=== PATIENT | male | born 1990 | race Caucasian/White ===

== ENCOUNTER 2017-03-24 21:32 | Emergency (ER) | payer BC, OTHER ==
[2017-03-24 21:33] VITALS: BMI 22.4
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
[2017-03-24 22:20] LABS: ADD MANUAL DIFF? NO
[2017-03-24 22:35] LABS: BASO # 0.05 K/mm3 (0.0-2.0); BASO % 0.7 % (0.0-3.0); EOS # 0.5 (0.0-0.7); GRAN # 2.24 (1.4-6.5); GRAN % 31.5 % (50.0-68.0); HEMATOCRIT 46.8 % (42.0-52.0); LYMPH % 56.2 % (22.0-35.0); MEAN CORPUSCULAR HEMOGLOBIN 28.7 pg (25.0-35.0); MEAN CORPUSCULAR HGB CONC 34.2 g/dl (31.0-37.0); MEAN PLATELET VOLUME 9.9 fl (7.0-11.0); MONO # 0.3 (0.1-0.6); MONO % 4.6 % (1.0-6.0); PLATELET COUNT 223 10^3/uL (120.0-450.0); WHITE BLOOD COUNT 7.1 10^3/ul (4.5-11.0)
[2017-03-24 22:37] LABS: PH,URINE 6.5 (4.7-8.0); URINE BILIRUBIN NEGATIVE (NEGATIVE); URINE BLOOD NEGATIVE (NEGATIVE); URINE GLUCOSE (UA) NEGATIVE (NEGATIVE); URINE KETONE NEGATIVE (NEGATIVE); URINE LEUKOCYTE ESTERASE NEGATIVE Leu/uL (NEGATIVE); URINE PROTEIN NEGATIVE mg/dL (<30 mg/dL); URINE UROBILINOGEN 0.2 E.U./dL (<1 E.U./dL)
[2017-03-24 22:38] LABS: ALB/GLOB RATIO 1.3 (1.1-1.8); ALKALINE PHOSPHATASE 50 U/L (38-133); ALT/SGPT 20 U/L (7-56); AST/SGOT 26 U/L (15-59); BILIRUBIN,TOTAL 0.6 mg/dL (0.2-1.3); BLOOD UREA NITROGEN 12 mg/dL (7-21); CALCIUM 9.6 mg/dL (8.4-10.5); CARBON DIOXIDE 25 mmol/L (21-33); CHLORIDE 101 mmol/L (98-107); GFR AFRICAN-AMERICAN > 60; GLUCOSE,RANDOM 118 mg/dL (70-110); SODIUM 142 mmol/L (132-148); TOTAL PROTEIN 8.6 g/dL (5.8-8.3)
[2017-03-24 22:43] LABS: POTASSIUM 4.2 mmol/L (3.6-5.0)
[2017-03-24 22:43] LABS: URINE APPEARANCE CLEAR (CLEAR); URINE COLOR LIGHT YELLOW (YELLOW)
--- NOTE | 2017-03-25 07:01 | ED PDOC ---
Physical Exam Vital Signs Temp Pulse Resp BP Pulse Ox 03/25/17 12:30 81 18 129/76 98 03/25/17 09:00 98 F 86 18 124/76 99 03/25/17 05:55 89 17 112/76 100 03/25/17 05:05 84 16 117/80 03/25/17 03:15 84 17 115/63 100 03/25/17 01:19 83 16 134/85 99 03/24/17 23:56 99 H 20 125/87 100 03/24/17 21:51 98.1 F 95 H 16 152/70 H 100 Medical Decision Making ED Course and Treatment: 03/25/17 07:00 Case signed out to me by Dr. Lemus pending [facility] screen[place] 03/25/17 18:07 [facility] not accepting [place] for screening. Dr. Davis ordered a REscreen. Pending [facility] screener. Will sign case out to oncoming night team. - Lab Interpretations Lab Results: 03/24/17 21:52 03/24/17 21:52 Lab Results 03/25/17 03:20: Urine Opiates Screen Negative, Urine Methadone Screen Negative, Ur Barbiturates Screen Negative, Ur Phencyclidine Scrn Negative, Ur Amphetamines Screen Negative, U Benzodiazepines Scrn Negative, U Oth Cocaine Metabols Negative, U Cannabinoids Screen Negative 03/24/17 22:25: Urine Color Light yellow, Urine Appearance Clear, Urine pH 6.5, Ur Specific [place] <= 1.005, Urine Protein Negative, Urine Glucose (UA) Negative, Urine Ketones Negative, Urine Blood Negative, Urine Nitrate Negative, Urine Bilirubin Negative, Urine Urobilinogen 0.2, Ur Leukocyte Esterase Negative 03/24/17 21:52: Alcohol, Quantitative 127 H 03/24/17 21:52: Salicylates < 1 L, Acetaminophen < 10.0 L 03/24/17 21:52: Sodium 142, Potassium 4.2, Chloride 101, Carbon Dioxide 25, Anion Gap 20, BUN 12, Creatinine 0.9, Est GFR ( Amer) > 60, Est GFR (Non- Af Amer) > 60, Random Glucose 118 H, Calcium 9.6, Total Bilirubin 0.6, AST 26, ALT 20, Alkaline Phosphatase 50, Total Protein 8.6 H, Albumin 4.9 H, Globulin 3.8, Albumin/Globulin Ratio 1.3 03/24/17 21:52: WBC 7.1 D, RBC 5.57, Hgb 16.0, Hct 46.8, MCV 84.0, MCH 28.7, MCHC 34.2, RDW 13.0, Plt Count 223, MPV 9.9, Gran % 31.5 L, Lymph % (Auto) 56.2 H, [place] % (Auto) 4.6, Eos % (Auto) 7.0 H, Baso % (Auto) 0.7, Gran # 2.24, Lymph # 4.0 H, [place] # 0.3, Eos # 0.5, Baso # 0.05 - RAD Interpretation Radiology Orders: 03/24/17 21:55 CHEST PORTABLE [RAD] Stat Disposition/Present on Arrival - Present on Arrival Any Indicators Present on Arrival: No History of DVT/PE: No History of Uncontrolled Diabetes: No Urinary Catheter: No History of Decub. Ulcer: No History Surgical Site Infection Following: None - Disposition Have Diagnosis and Disposition been Completed?: No Diagnosis: Schizoaffective disorder Disposition Time: 18:08 Patient Problems: Current Active Problems Problem Status Onset Schizoaffective disorder Acute Condition: GOOD
--- NOTE | 2017-03-25 08:42 | RAD ---
PROCEDURE: CHEST RADIOGRAPH, 1 VIEW HISTORY: medical clearance COMPARISON: 01/03/2017. FINDINGS: LUNGS: Clear. PLEURA: No pneumothorax or pleural fluid seen. CARDIOVASCULAR: Normal. OSSEOUS STRUCTURES: No significant abnormalities. VISUALIZED UPPER ABDOMEN: Normal. OTHER FINDINGS: None. IMPRESSION: Clear lungs.
--- NOTE | 2017-03-25 10:41 | CARD ---
APPROVED REPORT EKG Measurement Heart [id number] <Conclusion> Normal sinus rhythm LVH by voltage, probably normal for age. No change
--- NOTE | 2017-03-25 20:22 | ED PDOC ---
Physical Exam Vital Signs Temp Pulse Resp BP Pulse Ox 03/25/17 20:22 98.2 F 79 16 146/92 H 98 03/25/17 16:00 98.7 F 84 18 136/81 97 03/25/17 12:30 81 18 129/76 98 03/25/17 09:00 98 F 86 18 124/76 99 03/25/17 05:55 89 17 112/76 100 03/25/17 05:05 84 16 117/80 03/25/17 03:15 84 17 115/63 100 03/25/17 01:19 83 16 134/85 99 03/24/17 23:56 99 H 20 125/87 100 03/24/17 21:51 98.1 F 95 H 16 152/70 H 100 Medical Decision Making ED Course and Treatment: 03/25/17 19:00 Case endorsed to me by Dr. Calvo, [place] [facility],[facility] re-evaluation and final disposition. 03/25/17 23:09 As per [facility], pt does not need to be screened. PES screener Marvin re- evaluated pt, pt to be released to police custody. - Lab Interpretations Lab Results: 03/24/17 21:52 03/24/17 21:52 Lab Results 03/25/17 03:20: Urine Opiates Screen Negative, Urine Methadone Screen Negative, Ur Barbiturates Screen Negative, Ur Phencyclidine Scrn Negative, Ur Amphetamines Screen Negative, U Benzodiazepines Scrn Negative, U Oth Cocaine Metabols Negative, U Cannabinoids Screen Negative 03/24/17 22:25: Urine Color Light yellow, Urine Appearance Clear, Urine pH 6.5, Ur Specific [place] <= 1.005, Urine Protein Negative, Urine Glucose (UA) Negative, Urine Ketones Negative, Urine Blood Negative, Urine Nitrate Negative, Urine Bilirubin Negative, Urine Urobilinogen 0.2, Ur Leukocyte Esterase Negative 03/24/17 21:52: Alcohol, Quantitative 127 H 03/24/17 21:52: Salicylates < 1 L, Acetaminophen < 10.0 L 03/24/17 21:52: Sodium 142, Potassium 4.2, Chloride 101, Carbon Dioxide 25, Anion Gap 20, BUN 12, Creatinine 0.9, Est GFR ( Amer) > 60, Est GFR (Non- Af Amer) > 60, Random Glucose 118 H, Calcium 9.6, Total Bilirubin 0.6, AST 26, ALT 20, Alkaline Phosphatase 50, Total Protein 8.6 H, Albumin 4.9 H, Globulin 3.8, Albumin/Globulin Ratio 1.3 03/24/17 21:52: WBC 7.1 D, RBC 5.57, Hgb 16.0, Hct 46.8, MCV 84.0, MCH 28.7, MCHC 34.2, RDW 13.0, Plt Count 223, MPV 9.9, Gran % 31.5 L, Lymph % (Auto) 56.2 H, [place] % (Auto) 4.6, Eos % (Auto) 7.0 H, Baso % (Auto) 0.7, Gran # 2.24, Lymph # 4.0 H, [place] # 0.3, Eos # 0.5, Baso # 0.05 - RAD Interpretation Radiology Orders: 03/24/17 21:55 CHEST PORTABLE [RAD] Stat - Medication Orders Current Medication Orders: Discontinued Medications Quetiapine Fumarate (Seroquel) 25 mg PO STAT STA PRN Reason: Protocol Stop: 03/25/17 20:22 Last Admin: 03/25/17 20:45 Dose: 25 mg Disposition/Present on Arrival - Present on Arrival Any Indicators Present on Arrival: No History of DVT/PE: No History of Uncontrolled Diabetes: No Urinary Catheter: No History of Decub. Ulcer: No History Surgical Site Infection Following: None - Disposition Have Diagnosis and Disposition been Completed?: Yes Diagnosis: Schizoaffective disorder Disposition: RELEASED IN POLICE CUSTODY Disposition Time: 23:10 Condition: GOOD Additional Instructions: medically stable for incarceration
[2017-03-25 20:23] VITALS: RESP 16; O2SAT 98
[2017-03-25 23:11] VITALS: BP 135/78; PULSE 80; TEMP 98
== END 2017-03-25 23:14 ==
LOC: ED 21:32
DX: F25.9 Schizoaffective disorder, unspecified (principal)
CPT/HCPCS: 71010; 80053; 81003; 85025; 93005; 99285; G0480

== ENCOUNTER 2017-07-12 12:41 | Emergency (ER) | payer OTHER, MEDICAID ==
[2017-07-12 12:42] VITALS: BMI 22.4
--- NOTE | 2017-07-12 13:03 | ED PDOC ---
Arrival/HPI - General Chief Complaint: Psychiatric Evaluation Time Seen by Provider: 07/12/17 12:42 Historian: Patient - History of Present Illness Narrative History of Present Illness (Text): 07/12/17 12:45 Wily Gunter is a 27 year old male, whose past medical history includes schizophrenia, who presents to the emergency department complaining of hallucinations and violent behavior today. Patient was reportedly sent by mobile crisis. Patient notes that he was recently hospitalized several months ago for similar symptoms. Limited history provided. Time/Duration: 4-6 hours Symptom Onset: Gradual Symptom Course: Unchanged Activities at Onset: Light Past Medical History - Provider Review Nursing Documentation Reviewed: Yes - Infectious Disease Hx of Infectious Diseases: None - Tetanus Immunization Tetanus Immunization: Unknown - Past Medical History Past Medical History: No Previous - Cardiac Hx Cardiac Disorders: No Hx Hypertension: No - Pulmonary Hx Respiratory Disorders: No Hx Tuberculosis: No - Neurological HX Cerebrovascular Accident: No Hx Seizures: Yes - HEENT Hx HEENT Disorder: No - Renal Hx Renal Disorder: No - Endocrine/Metabolic Hx Endocrine Disorders: No - Hematological/Oncological Hx Cancer: No - Integumentary Hx Dermatological Disorder: No - Musculoskeletal/Rheumatological Hx Musculoskeletal Disorders: No Hx Falls: No - Gastrointestinal Hx Gastrointestinal Disorders: No - Genitourinary/Gynecological Hx Genitourinary Disorders: No Hx Sexually Transmitted Diseases: No - Psychiatric Hx Bipolar Disorder: Yes Hx Depression: Yes Hx Schizophrenia: Yes Hx Substance Use: No - Past Surgical History Past Surgical History: No Previous - Surgical History Other/Comment: nose - Anesthesia Hx Anesthesia: Yes - Suicidal Assessment Feels Threatened In Home Enviroment: No Family/Social History - Physician Review Nursing Documentation Reviewed: Yes Family/Social History: No Known Family HX Smoking Status: Heavy Smoker > 10 Cigarettes Daily Hx Alcohol Use: Yes Hx Substance Use: No Hx Substance Use Treatment: No Allergies/Home Meds Allergies/Adverse Reactions: Allergies No Known Allergies Allergy (Verified 07/12/17 12:54) Home Medications: Home Meds Medication Instructions Recorded Confirmed Benztropine [Cogentin] 1 mg PO BID 07/12/17 07/12/17 Divalproex [Depakote ER] 1,000 mg PO HS 07/12/17 07/12/17 QUEtiapine [SEROquel] 200 mg PO DAILY 07/12/17 07/12/17 QUEtiapine [SEROquel] 600 mg PO HS 07/12/17 07/12/17 traZODone [Desyrel] 50 mg PO HS 07/12/17 07/12/17 Review of Systems - Physician Review All systems were reviewed & negative as marked: Yes - Review of Systems Constitutional: absent: Fevers, Night Sweats Eyes: absent: Vision Changes, Photophobia ENT: absent: Hearing Changes, Tinnitus Respiratory: absent: SOB, Cough Cardiovascular: absent: Chest Pain, Palpitations Gastrointestinal: absent: Abdominal Pain, Stool Changes Genitourinary Male: absent: Dysuria, Frequency Musculoskeletal: absent: Arthralgias, Back Pain Skin: absent: Rash, Pruritis Neurological: absent: Headache, Dizziness Endocrine: absent: Diaphoresis Hemo/Lymphatic: absent: Adenopathy Psychiatric: Other (hallucinations and violent behavior) Physical Exam Vital Signs Reviewed: Yes Vital Signs Temp Pulse Resp BP Pulse Ox 07/13/17 04:39 97.7 F 71 16 113/75 100 07/13/17 03:00 98.2 F 80 16 124/78 99 07/12/17 23:00 98.4 F 86 16 126/74 99 07/12/17 19:00 78 18 115/80 100 07/12/17 17:27 76 18 119/90 100 07/12/17 16:00 85 18 126/84 98 07/12/17 14:28 78 18 105/70 98 07/12/17 12:47 98.3 F 113 H 20 132/86 96 Temperature: Afebrile Blood Pressure: Normal Pulse: Tachycardic Respiratory Rate: Normal Appearance: Positive for: Other (bizarre behavior; agitated at times; unable to provide further history) Pain Distress: None Mental Status: Positive for: Alert and Oriented X 3 - Systems Exam Head: Present: Atraumatic, Normocephalic Pupils: Present: PERRL Extroacular Muscles: Present: EOMI Conjunctiva: Present: Normal Mouth: Present: Moist Mucous Membranes Neck: Present: Normal Range of Motion Respiratory/Chest: Present: Clear to Auscultation, Good Air Exchange. No: Respiratory Distress, Accessory Muscle Use Cardiovascular: Present: Regular Rate and Rhythm, Normal S1, S2. No: Murmurs Abdomen: Present: Normal Bowel Sounds. No: Tenderness, Distention, Peritoneal Signs Back: Present: Normal Inspection Upper Extremity: Present: Normal Inspection. No: Cyanosis, Edema Lower Extremity: Present: Normal Inspection. No: Edema Neurological: Present: GCS=15, CN II-XII Intact, Speech Normal Skin: Present: Warm, Dry, Normal Color. No: Rashes Psychiatric: Present: Hallucinations, Other (Bizarre behavior) Medical Decision Making ED Course and Treatment: 07/12/17 13:05 Impression: 27 year old male complaining of hallucinations and violent behavior today Differential Diagnosis included but are not limited to: Plan: -- EKG -- Chest X-ray -- Urinalysis -- Labs -- Reassess and disposition Prior Visits: Notes and results from previous visits were reviewed. Patient last seen in the ED on 03/24/17 brought in by Simi JOSEPH for psychiatric evaluation. Patient was discharged on police custody. Progress Notes: EKG: Ordered, reviewed, and independently interpreted the EKG. Rate : 98 BPM Rhythm : NSR Interpretation : No ST-segment elevations or depressions, no T-wave inversions, normal intervals. Comparison : No previous EKG for comparison. 07/12/17 14:17 Spoke with PES worker, who recommends Patient be evaluated by [facility] screener. 07/12/17 15:59 pt medically cleared 07/13/17 10:19 pt endorsed to retail shift supervisor, [place] [facility] [place] - Lab Interpretations Lab Results: 07/12/17 13:10 07/12/17 13:10 Lab Results 07/12/17 15:20: Urine Opiates Screen Negative, Urine Methadone Screen Negative, Ur Barbiturates Screen Negative, Ur Phencyclidine Scrn Negative, Ur Amphetamines Screen Negative, U Benzodiazepines Scrn Negative, U Oth Cocaine Metabols Negative, U Cannabinoids Screen Negative 07/12/17 15:20: Urine Color Yellow, Urine Appearance Sl cloudy, Urine pH 8.0, Ur Specific [place] 1.020, Urine Protein Trace H, Urine Glucose (UA) Negative, Urine Ketones Trace H, Urine Blood Negative, Urine Nitrate Negative, Urine Bilirubin Negative, Urine Urobilinogen 1.0 H, Ur Leukocyte Esterase Negative, Urine RBC Negative, Urine WBC 0 - 2, Amorphous Sediment Many 07/12/17 13:10: Alcohol, Quantitative < 10 07/12/17 13:10: Sodium 143, Potassium 4.1, Chloride 104, Carbon Dioxide 29, Anion Gap 14, BUN 19, Creatinine 0.9, Est GFR ( Amer) > 60, Est GFR (Non- Af Amer) > 60, Random Glucose 120 H, Calcium 9.4, Total Bilirubin 0.4, AST 34, ALT 22, Alkaline Phosphatase 48, Total Protein 7.2, Albumin 4.4, Globulin 2.7, Albumin/Globulin Ratio 1.6 07/12/17 13:10: WBC 4.0 L D, RBC 5.41, Hgb 15.1, Hct 44.7, MCV 82.6, MCH 27.9, MCHC 33.8, RDW 14.1, Plt Count 171, MPV 9.6, Gran % 37.9 L, Lymph % (Auto) 42.2 H, [place] % (Auto) 10.2 H, Eos % (Auto) 8.7 H, Baso % (Auto) 1.0, Gran # 1.53, Lymph # 1.7, [place] # 0.4, Eos # 0.4, Baso # 0.04 07/12/17 13:10: Salicylates < 1 L, Acetaminophen < 10.0 L, Valproic Acid 65 I have reviewed the lab results: Yes - RAD Interpretation Radiology Orders: 07/12/17 12:57 CHEST PORTABLE [RAD] Stat - Scribe Statement The provider has reviewed the documentation as recorded by the Jose F Burgess Provider Scribe Attestation: All medical record entries made by the Scribe were at my direction and personally dictated by me. I have reviewed the chart and agree that the record accurately reflects my personal performance of the history, physical exam, medical decision making, and the department course for this patient. I have also personally directed, reviewed, and agree with the discharge instructions and disposition. Disposition/Present on Arrival - Present on Arrival Any Indicators Present on Arrival: No History of DVT/PE: No History of Uncontrolled Diabetes: No Urinary Catheter: No History of Decub. Ulcer: No History Surgical Site Infection Following: None - Disposition Have Diagnosis and Disposition been Completed?: Yes Diagnosis: Schizophrenia Disposition: Transfer [facility] Disposition Time: 07:00 Condition: GOOD Referrals: Conductor Dave Refranklin, [Primary Care Provider] - Follow up with primary Forms: [employer] (Indonesian)
[2017-07-12 13:22] LABS: BASO # 0.04 K/mm3 (0.0-2.0); EOS # 0.4 (0.0-0.7); EOS % 8.7 % (1.5-5.0); GRAN # 1.53 (1.4-6.5); GRAN % 37.9 % (50.0-68.0); HEMATOCRIT 44.7 % (42.0-52.0); LYMPH # 1.7 (1.2-3.4); LYMPH % 42.2 % (22.0-35.0); MEAN CELL VOLUME 82.6 fl (80.0-105.0); MEAN CORPUSCULAR HEMOGLOBIN 27.9 pg (25.0-35.0); MEAN CORPUSCULAR HGB CONC 33.8 g/dl (31.0-37.0); MEAN PLATELET VOLUME 9.6 fl (7.0-11.0); MONO # 0.4 (0.1-0.6); MONO % 10.2 % (1.0-6.0); RED CELL DISTRIBUTION WIDTH 14.1 % (11.5-14.5)
[2017-07-12 13:37] LABS: ALB/GLOB RATIO 1.6 (1.1-1.8); ALKALINE PHOSPHATASE 48 U/L (38-133); ALT/SGPT 22 U/L (7-56); AST/SGOT 34 U/L (15-59); BILIRUBIN,TOTAL 0.4 mg/dL (0.2-1.3); BLOOD UREA NITROGEN 19 mg/dL (7-21); CALCIUM 9.4 mg/dL (8.4-10.5); CARBON DIOXIDE 29 mmol/L (21-33); CHLORIDE 104 mmol/L (98-107); GFR AFRICAN-AMERICAN > 60; GLUCOSE,RANDOM 120 mg/dL (70-110); POTASSIUM 4.1 mmol/L (3.6-5.0); SODIUM 143 mmol/L (132-148); TOTAL PROTEIN 7.2 g/dL (5.8-8.3)
[2017-07-12 13:41] LABS: VALPROIC ACID 65 ug/mL (50.0-100.0)
--- NOTE | 2017-07-12 13:42 | RAD ---
HISTORY: pysch COMPARISON: No prior. FINDINGS: LUNGS: No active pulmonary disease. PLEURA: No significant pleural effusion identified, no pneumothorax apparent. CARDIOVASCULAR: Normal. OSSEOUS STRUCTURES: No significant abnormalities. VISUALIZED UPPER ABDOMEN: Normal. OTHER FINDINGS: None. IMPRESSION: No active disease.
--- NOTE | 2017-07-12 15:18 | CARD ---
APPROVED REPORT EKG Measurement Heart [id number] <Conclusion> Normal sinus rhythm Possible Left atrial enlargement Borderline ECG
[2017-07-12 15:53] LABS: URINE BILIRUBIN NEGATIVE (NEGATIVE); URINE BLOOD NEGATIVE (NEGATIVE); URINE GLUCOSE (UA) NEGATIVE (NEGATIVE); URINE KETONE TRACE mg/dL (NEGATIVE); URINE LEUKOCYTE ESTERASE NEGATIVE Leu/uL (NEGATIVE); URINE PROTEIN TRACE mg/dL (<30 mg/dL)
[2017-07-12 15:55] LABS: URINE APPEARANCE SL CLOUDY (CLEAR); URINE COLOR YELLOW (YELLOW)
[2017-07-12 16:06] LABS: URINE WBC 0 - 2 /hpf (0-6)
[2017-07-12 16:07] LABS: URINE AMORPHOUS SEDIMENT MANY; URINE RBC NEGATIVE /hpf (0-2)
[2017-07-13 04:20] VITALS: RESP 16
[2017-07-13 04:40] VITALS: BP 113/75; PULSE 71; TEMP 97.7; O2SAT 100
== END 2017-07-13 05:03 | disposition short-term general hospital (02) ==
LOC: ED 12:41
DX: F20.9 Schizophrenia, unspecified (principal)

== ENCOUNTER 2018-04-12 18:03 | Inpatient (IN) | payer BC, OTHER ==
--- NOTE | 2018-04-12 18:21 | ED PDOC ---
Arrival/HPI - General Chief Complaint: Psychiatric Evaluation Time Seen by Provider: 04/12/18 18:09 Historian: Patient, EMS - History of Present Illness Time/Duration: Prior to Arrival Symptom Onset: Gradual Symptom Course: Unchanged Associated Symptoms (Text): 04/12/18 18:18 Patient was found on the floor at home by family and 911 was called and he was brought to the emergency department via ambulance. Patient had a prescription for Ambien 10 mg #30 and Ativan 2 mg #30 both filled on 04/09/2018. He has been taking the pills since then and has completely finish them. He states that he was trying to and thought that that would be enough to kill him. He is mildly lethargic but oriented 3 and in no distress. He was placed on one-to- one suicide watch. Past Medical History - Infectious Disease Hx of Infectious Diseases: None - Tetanus Immunization Tetanus Immunization: Unknown - Past Medical History Past Medical History: No Previous - Cardiac Hx Cardiac Disorders: No Hx Hypertension: No - Pulmonary Hx Respiratory Disorders: No Hx Tuberculosis: No - Neurological HX Cerebrovascular Accident: No Hx Seizures: Yes - HEENT Hx HEENT Disorder: No - Renal Hx Renal Disorder: No - Endocrine/Metabolic Hx Endocrine Disorders: No - Hematological/Oncological Hx Cancer: No - Integumentary Hx Dermatological Disorder: No - Musculoskeletal/Rheumatological Hx Musculoskeletal Disorders: No Hx Falls: No - Gastrointestinal Hx Gastrointestinal Disorders: No - Genitourinary/Gynecological Hx Genitourinary Disorders: No Hx Sexually Transmitted Diseases: No - Psychiatric Hx Bipolar Disorder: Yes Hx Depression: Yes Hx Schizophrenia: Yes Hx Substance Use: No - Past Surgical History Past Surgical History: No Previous - Surgical History Other/Comment: nose - Anesthesia Hx Anesthesia: Yes - Suicidal Assessment Feels Threatened In Home Enviroment: No Family/Social History - Physician Review Nursing Documentation Reviewed: Yes Family/Social History: Unknown Family HX Smoking Status: Heavy Smoker > 10 Cigarettes Daily Hx Alcohol Use: Yes Frequency of alcohol use: Socially Hx Substance Use: No Hx Substance Use Treatment: No Allergies/Home Meds Allergies/Adverse Reactions: Allergies No Known Allergies Allergy (Verified 07/12/17 12:54) Home Medications: Home Meds Medication Instructions Recorded Confirmed Divalproex [Depakote ER] 500 mg PO HS 07/12/17 04/12/18 QUEtiapine [SEROquel] 400 mg PO HS 07/12/17 04/12/18 traZODone [Desyrel] 300 mg PO HS 07/12/17 04/12/18 Doxylamine Succinate [Unisom] 10 mg PO HS 04/12/18 04/12/18 LORazepam [Ativan] 2 mg PO DAILY 04/12/18 04/12/18 Melatonin [[place] 3 mg-1 mg] 10 mg PO HS 04/12/18 04/12/18 Zolpidem [Ambien] 10 mg PO HS 04/12/18 04/12/18 Review of Systems - Physician Review All systems were reviewed & negative as marked: Yes - Review of Systems Constitutional: absent: Fatigue, Fevers Respiratory: absent: SOB, Cough Cardiovascular: absent: Chest Pain, Palpitations, Syncope Gastrointestinal: absent: Abdominal Pain, Nausea, Vomiting Neurological: absent: Headache, Dizziness, Focal Weakness Physical Exam Vital Signs Temp Pulse Resp BP Pulse Ox 04/12/18 20:08 64 16 119/68 100 04/12/18 18:04 97.9 F 87 18 110/73 98 Temperature: Afebrile Blood Pressure: Normal Pulse: Regular Respiratory Rate: Normal Appearance: Positive for: Well-Appearing, Non-Toxic, Comfortable Pain Distress: None Mental Status: Positive for: Alert and Oriented X 3 - Systems Exam Head: Present: Atraumatic, Normocephalic Pupils: Present: PERRL Extroacular Muscles: Present: EOMI Conjunctiva: Present: Normal Mouth: Present: Moist Mucous Membranes Pharnyx: No: ERYTHEMA, EXUDATE, TONSILS ENLARGED Neck: Present: Normal Range of Motion Respiratory/Chest: Present: Clear to Auscultation, Good Air Exchange, Decreased Breath Sounds. No: Respiratory Distress, Accessory Muscle Use Cardiovascular: Present: Regular Rate and Rhythm, Normal S1, S2. No: Murmurs Abdomen: No: Tenderness, Distention, Peritoneal Signs Back: Present: Normal Inspection Upper Extremity: Present: Normal Inspection. No: Cyanosis, Edema Lower Extremity: Present: Normal Inspection. No: Edema Neurological: Present: GCS=15, CN II-XII Intact, Speech Normal, Motor Func Grossly Intact, Normal Sensory Function, Normal Cerebellar Funct Skin: Present: Warm, Dry, Normal Color. No: Rashes Psychiatric: Present: Oriented x 3, Normal Concentration, Depressed Mood, Suicidal Ideation, Lethargic. No: Normal Insight, Normal Affect, Normal Mood, Anxious, Agitated, Homicidal Ideation, Delusional, Hallucinations, Intoxicated Medical Decision Making ED Course and Treatment: 04/12/18 19:41 EKG shows normal sinus rhythm rate approximately 75 with elevated J point and no acute changes. 04/12/18 20:52 requests that the medical office manager admit to his service on a telemetry floor. - Lab Interpretations Lab Results: 04/12/18 18:50 04/12/18 19:50 Lab Results 04/12/18 19:50: Sodium 143, Potassium 4.2, Chloride 100, Carbon Dioxide 29, Anion Gap 19, BUN 13, Creatinine 0.9, Est GFR ( Amer) > 60, Est GFR (Non- Af Amer) > 60, Random Glucose 86, Calcium 9.8, Magnesium 2.0, Total Bilirubin 0.5, AST 100 H, ALT 23, Alkaline Phosphatase 48, Total Creatine Kinase 5467 H, CK-MB (CK-2) 17.6 H, CK-MB (CK-2) % 0.3 L, Total Protein 8.2, Albumin 5.0 H, Globulin 3.3, Albumin/Globulin Ratio 1.5 04/12/18 19:10: Urine Opiates Screen Negative, Urine Methadone Screen Negative, Ur Barbiturates Screen Negative, Ur Phencyclidine Scrn Negative, Ur Amphetamines Screen Negative, U Benzodiazepines Scrn Negative, U Oth Cocaine Metabols Negative, U Cannabinoids Screen Negative 04/12/18 19:10: Urine Color Light yellow, Urine Appearance Clear, Urine pH 6.5, Ur Specific [place] 1.010, Urine Protein Negative, Urine Glucose (UA) Negative, Urine Ketones Negative, Urine Blood Negative, Urine Nitrate Negative, Urine Bilirubin Negative, Urine Urobilinogen 0.2, Ur Leukocyte Esterase Negative 04/12/18 18:50: Alcohol, Quantitative < 10 04/12/18 18:50: Salicylates < 1 L, Acetaminophen < 10.0 L, Valproic Acid 38 L 04/12/18 18:50: WBC 9.1 D, RBC 5.59, Hgb 15.1, Hct 45.6, MCV 81.6, MCH 27.0, MCHC 33.1, RDW 13.6, Plt Count 192, MPV 9.9, Gran % 71.7 H, Lymph % (Auto) 14.9 L, [place] % (Auto) 12.3 H, Eos % (Auto) 0.8 L, Baso % (Auto) 0.3, Gran # 6.54 H, Lymph # (Auto) 1.4, [place] # (Auto) 1.1 H, Eos # (Auto) 0.1, Baso # (Auto) 0.03 - RAD Interpretation Radiology Orders: 04/12/18 18:17 CHEST PORTABLE [RAD] Stat Disposition/Present on Arrival - Present on Arrival Any Indicators Present on Arrival: No History of DVT/PE: No History of Uncontrolled Diabetes: No Urinary Catheter: No History of Decub. Ulcer: No History Surgical Site Infection Following: None - Disposition Have Diagnosis and Disposition been Completed?: Yes Diagnosis: Rhabdomyolysis, Overdose, Depression, Suicidal ideation Disposition: HOSPITALIZED Disposition Time: 20:53 Patient Plan: Observation, Telemetry Condition: FAIR Referrals: Bashir Akers MD [Primary Care Provider] - Follow up with primary Forms: vLine (Moroccan)
[2018-04-12 19:11] LABS: BASO # 0.03 K/mm3 (0.0-2.0); BASO % 0.3 % (0.0-3.0); EOS # 0.1 (0.0-0.7); EOS % 0.8 % (1.5-5.0); GRAN # 6.54 (1.4-6.5); GRAN % 71.7 % (50.0-68.0); HEMOGLOBIN 15.1 g/dL (14.0-18.0); LYMPH # 1.4 (1.2-3.4); LYMPH % 14.9 % (22.0-35.0); MEAN CELL VOLUME 81.6 fl (80.0-105.0); MEAN CORPUSCULAR HGB CONC 33.1 g/dl (31.0-37.0); MEAN PLATELET VOLUME 9.9 fl (7.0-11.0); MONO # 1.1 (0.1-0.6); MONO % 12.3 % (1.0-6.0); RBC 5.59 10^6/uL (3.5-6.1); RED CELL DISTRIBUTION WIDTH 13.6 % (11.5-14.5); WHITE BLOOD COUNT 9.1 10^3/ul (4.5-11.0)
[2018-04-12 19:20] LABS: PH,URINE 6.5 (4.7-8.0); URINE APPEARANCE CLEAR (CLEAR); URINE BILIRUBIN NEGATIVE (NEGATIVE); URINE BLOOD NEGATIVE (NEGATIVE); URINE COLOR LIGHT YELLOW (YELLOW); URINE GLUCOSE (UA) NEGATIVE (NEGATIVE); URINE LEUKOCYTE ESTERASE NEGATIVE Leu/uL (NEGATIVE); URINE PROTEIN NEGATIVE mg/dL (<30 mg/dL); URINE UROBILINOGEN 0.2 E.U./dL (<1 E.U./dL)
[2018-04-12 19:23] LABS: ACETAMINOPHEN < 10.0 ug/ml (10.0-20.0); SALICYLATE < 1 mg/dL (2.0-20.0)
[2018-04-12 19:28] LABS: VALPROIC ACID 38 ug/mL (50.0-100.0)
--- NOTE | 2018-04-12 19:28 | RAD ---
HISTORY: PES COMPARISON: Portable chest 04/12/2018. FINDINGS: LUNGS: Diminished inspiratory volume. No acute infiltrate bilaterally nevertheless. PLEURA: No significant pleural effusion identified, no pneumothorax apparent. CARDIOVASCULAR: Normal. OSSEOUS STRUCTURES: No significant abnormalities. VISUALIZED UPPER ABDOMEN: Normal. OTHER FINDINGS: None. IMPRESSION: No active infiltrate or pleural effusion identified. Diminished inspiratory volume noted.
[2018-04-12 19:39] LABS: BENZODIAZEPINES, UR NEGATIVE (NEGATIVE)
[2018-04-12 19:42] LABS: BARBITURATES, UR NEGATIVE (NEGATIVE); OPIATES, UR NEGATIVE (NEGATIVE); PHENCYCLIDINE, UR NEGATIVE (NEGATIVE)
[2018-04-12 20:17] LABS: ALB/GLOB RATIO 1.5 (1.1-1.8); ALT/SGPT 23 U/L (7-56); AST/SGOT 100 U/L (17-59); BLOOD UREA NITROGEN 13 mg/dL (7-21); CALCIUM 9.8 mg/dL (8.4-10.5); GFR AFRICAN-AMERICAN > 60; GFR NON-AFRICAN AMERICAN > 60
[2018-04-12 20:47] LABS: CK MB% 0.3 % (2.5-3.0); CK-MB 17.6 ng/mL (0.0-3.6)
[2018-04-12] MEDS ORDERED: Sodium Chloride 0.9% 1,000 ML IV ONE (20:51)
[2018-04-12 21:30] LABS: INR 1.03 (0.93-1.08); PARTIAL THROMBOPLASTIN TIME 28.5 Seconds (25.1-36.5); PROTHROMBIN TIME 11.7 SECONDS (9.4-12.5)
--- NOTE | 2018-04-12 21:32 | CP.PCM.HP ---
<Reggie Pastrana - Last Filed: 04/13/18 03:18> History of Present Illness - History of Present Illness History of Present Illness: 27 year old male with a past medical history of paranoid schizophrenia, bipolar disorder who presented to the ED after taking thirty tablets of 10 mg Ambien and 30 tablets of 2 mg Ativan as a suicide attempt. The patient was prescribed these medications on 04/09/2018. According to the mother, the patient has a long- standing history of non-compliance with his psychiatric medications, and most recently discontinued taking his Haldol and reduced his dosage of Depakote from 1000 mg to 500 mg HS. The patient saw is primary psychiatrist, Dr. Akers, and complained reduced the patient's Depakote dosage from 1,000 HS to 500 mg HS and prescribed him the Ambien and Ativan for insomnia. The mother also reports this is the patient's first suicide attempt. The patient is mildly sedated, oriented to person, place, and time, and ROS and history from him are limited. The mother reports he was not leaving his room, and when she came to ask him what was wrong his told him he wanted to "end it all." He is oxygen saturation is 100% on room air and his vitals are stable. PMH: affective disorder, bipolar, paranoid schizophrenia Surgical History: denies Allergies: none known Social: unemployed, lives at home, 6 pack year history of smoking. Primary psychiatrist: Dr. Akers Present on Admission - Present on Admission Any Indicators Present on Admission: No Review of Systems - Review of Systems All systems: reviewed and no additional remarkable complaints except (as per HPI ) Past Patient History - Infectious Disease Hx of Infectious Diseases: None - Tetanus Immunizations Tetanus Immunization: Unknown - Past Social History Smoking Status: Heavy Smoker > 10 Cigarettes Daily - CARDIAC Hx Cardiac Disorders: No Hx Hypertension: No - PULMONARY Hx Respiratory Disorders: No Hx Tuberculosis: No - NEUROLOGICAL HX Cerebrovascular Accident: No Hx Seizures: Yes - HEENT Hx HEENT Problems: No - RENAL Hx Chronic Kidney Disease: No - ENDOCRINE/METABOLIC Hx Endocrine Disorders: No - HEMATOLOGICAL/ONCOLOGICAL Hx Cancer: No - INTEGUMENTARY Hx Dermatological Problems: No - MUSCULOSKELETAL/RHEUMATOLOGICAL Hx Musculoskeletal Disorders: No Hx Falls: No - GASTROINTESTINAL Hx Gastrointestinal Disorders: No - GENITOURINARY/GYNECOLOGICAL Hx Genitourinary Disorders: No Hx Sexually Transmitted Disorders: No - PSYCHIATRIC Hx Bipolar Disorder: Yes Hx Depression: Yes Hx Schizophrenia: Yes Hx Substance Use: No - SURGICAL HISTORY Other/Comment: nose - ANESTHESIA Hx Anesthesia: Yes Meds Allergies/Adverse Reactions: Allergies Allergy/AdvReac Type Severity Reaction Status Date / Time No Known Allergies Allergy Verified 07/12/17 12:54 Physical Exam - Constitutional Appears: Other (lethargic) - Head Exam Head Exam: ATRAUMATIC, NORMOCEPHALIC - Eye Exam Eye Exam: EOMI, Normal appearance, PERRL - ENT Exam ENT Exam: Mucous Membranes Moist - Neck Exam Neck exam: Positive for: Normal Inspection - Respiratory Exam Respiratory Exam: Clear to Auscultation Bilateral, NORMAL BREATHING PATTERN. absent: Accessory Muscle Use - Cardiovascular Exam Cardiovascular Exam: RRR, +S1, +S2 - GI/Abdominal Exam GI & Abdominal Exam: Normal Bowel Sounds, Soft - Extremities Exam Extremities exam: Positive for: normal inspection. Negative for: calf tenderness, pedal edema - Back Exam Back exam: NORMAL INSPECTION. absent: CVA tenderness (L), CVA tenderness (R) - Neurological Exam Additional comments: awake, oriented x 3, but lethargic - Psychiatric Exam Psychiatric exam: Depressed, Flat Affect - Skin Skin Exam: Dry, Intact, Normal Color, Warm Results - Vital Signs Recent Vital Signs: Last Vital Signs Temp 98.5 F 04/12/18 21:21 Pulse 83 04/12/18 21:21 Resp 21 04/12/18 21:21 BP 115/77 04/12/18 21:21 Pulse Ox 100 04/12/18 21:21 - Labs Result Diagrams: 04/12/18 18:50 04/12/18 19:50 Labs: Laboratory Results - last 24 hr 04/12/18 04/12/18 04/12/18 18:50 18:50 18:50 WBC 9.1 D RBC 5.59 Hgb 15.1 Hct 45.6 MCV 81.6 MCH 27.0 MCHC 33.1 RDW 13.6 Plt Count 192 MPV 9.9 Gran % 71.7 H Lymph % (Auto) 14.9 L [place] % (Auto) 12.3 H Eos % (Auto) 0.8 L Baso % (Auto) 0.3 Gran # 6.54 H Lymph # (Auto) 1.4 [place] # (Auto) 1.1 H Eos # (Auto) 0.1 Baso # (Auto) 0.03 PT INR APTT Sodium Potassium Chloride Carbon Dioxide Anion Gap BUN Creatinine Est GFR ( Amer) Est GFR (Non-Af Amer) Random Glucose Calcium Magnesium Total Bilirubin AST ALT Alkaline Phosphatase Total Creatine Kinase CK-MB (CK-2) CK-MB (CK-2) % Total Protein Albumin Globulin Albumin/Globulin Ratio Urine Color Urine Appearance Urine pH Ur Specific [place] Urine Protein Urine Glucose (UA) Urine Ketones Urine Blood Urine Nitrate Urine Bilirubin Urine Urobilinogen Ur Leukocyte Esterase Salicylates < 1 L Urine Opiates Screen Urine Methadone Screen Acetaminophen < 10.0 L Ur Barbiturates Screen Valproic Acid 38 L Ur Phencyclidine Scrn Ur Amphetamines Screen U Benzodiazepines Scrn U Oth Cocaine Metabols U Cannabinoids Screen Alcohol, Quantitative < 10 04/12/18 04/12/18 04/12/18 19:10 19:10 19:50 WBC RBC Hgb Hct MCV MCH MCHC RDW Plt Count MPV Gran % Lymph % (Auto) [place] % (Auto) Eos % (Auto) Baso % (Auto) Gran # Lymph # (Auto) [place] # (Auto) Eos # (Auto) Baso # (Auto) PT INR APTT Sodium 143 Potassium 4.2 Chloride 100 Carbon Dioxide 29 Anion Gap 19 BUN 13 Creatinine 0.9 Est GFR ( Amer) > 60 Est GFR (Non-Af Amer) > 60 Random Glucose 86 Calcium 9.8 Magnesium 2.0 Total Bilirubin 0.5 AST 100 H ALT 23 Alkaline Phosphatase 48 Total Creatine Kinase 5467 H CK-MB (CK-2) 17.6 H CK-MB (CK-2) % 0.3 L Total Protein 8.2 Albumin 5.0 H Globulin 3.3 Albumin/Globulin Ratio 1.5 Urine Color Light yellow Urine Appearance Clear Urine pH 6.5 Ur Specific [place] 1.010 Urine Protein Negative Urine Glucose (UA) Negative Urine Ketones Negative Urine Blood Negative Urine Nitrate Negative Urine Bilirubin Negative Urine Urobilinogen 0.2 Ur Leukocyte Esterase Negative Salicylates Urine Opiates Screen Negative Urine Methadone Screen Negative Acetaminophen Ur Barbiturates Screen Negative Valproic Acid Ur Phencyclidine Scrn Negative Ur Amphetamines Screen Negative U Benzodiazepines Scrn Negative U Oth Cocaine Metabols Negative U Cannabinoids Screen Negative Alcohol, Quantitative 04/12/18 21:10 WBC RBC Hgb Hct MCV MCH MCHC RDW Plt Count MPV Gran % Lymph % (Auto) [place] % (Auto) Eos % (Auto) Baso % (Auto) Gran # Lymph # (Auto) [place] # (Auto) Eos # (Auto) Baso # (Auto) PT 11.7 INR 1.03 APTT 28.5 Sodium Potassium Chloride Carbon Dioxide Anion Gap BUN Creatinine Est GFR ( Amer) Est GFR (Non-Af Amer) Random Glucose Calcium Magnesium Total Bilirubin AST ALT Alkaline Phosphatase Total Creatine Kinase CK-MB (CK-2) CK-MB (CK-2) % Total Protein Albumin Globulin Albumin/Globulin Ratio Urine Color Urine Appearance Urine pH Ur Specific [place] Urine Protein Urine Glucose (UA) Urine Ketones Urine Blood Urine Nitrate Urine Bilirubin Urine Urobilinogen Ur Leukocyte Esterase Salicylates Urine Opiates Screen Urine Methadone Screen Acetaminophen Ur Barbiturates Screen Valproic Acid Ur Phencyclidine Scrn Ur Amphetamines Screen U Benzodiazepines Scrn U Oth Cocaine Metabols U Cannabinoids Screen Alcohol, Quantitative Assessment & Plan - Assessment and Plan (Free Text) Assessment: 27 year old with a past medical history of bipolar disorder and paranoid schizophrenia who presents after an attempted suicide with 60 mg of Ativan and 300 mg of Ambien. In the ED he was found to have rhabdomyolysis with a CPK of 5, 467. Plan: 1) Suicide attempt with Ativan and Ambien - 1:1 sitter - Psychiatry consulted, Dr. Carrington - Seizure precautions - Neuro-checks - Fall precautions - HIV and Hepatitis panel ordered, follow up - CT head FINDINGS are as follows Brain: The white-silvestre differentiation is preserved demonstrating no acute territorial type infarct. No acute intracranial hemorrhage is seen. No significant white matter disease visualized. There are calcifications within the globus pallidus bilaterally, which are likely physiologic. Midline shift: There is no midline shift. Ventricles: No ventriculomegaly. Bones/joints: The calvarium demonstrates no evidence for a depressed fracture. Soft tissues: No acute abnormality. Sinuses: There is mucosal thickening in the bilateral maxillary sinuses, with a mucus retention cyst or polyp in the left maxillary sinus. The vessel thickening/effusions are visualized within the bilateral ethmoid air cells. There is mild mucosal thickening of the frontal and sphenoid sinuses. Mastoid air cells: No mastoid effusion - ABG with shock panel; Respiratory therapist called at 03:17 04/13/2018 and informed to get the ABG, now! 2) Rhabdomyolysis - Initial CPK 5,467 - 2 L of Normal saline given in ED - 200 mls/hr of NS - Monitor CPK daily 3) Nicotine dependence - Consider 14 mg patch if patient has urge to smoke 4) DVT/GI prophylaxis - Protonix 40 BID - Heparin 5,000 q8h NEREIDA - Diet if patient passes bedside swallow exam Case reviewed and discussed with attending physician, Dr. Medina - Date & Time Date: 04/13/18 Time: 03:22 <Ti Medina U - Last Filed: 04/16/18 17:11> Results - Vital Signs Recent Vital Signs: Last Vital Signs Temp 98.2 F 04/16/18 07:56 Pulse 83 04/16/18 07:56 Resp 18 04/16/18 07:56 BP 114/82 04/16/18 07:56 Pulse Ox 100 04/16/18 07:56 - Labs Result Diagrams: 04/15/18 05:30 04/16/18 05:30 Labs: Laboratory Results - last 24 hr 04/16/18 05:30 Sodium 145 Potassium 3.5 L Chloride 108 H Carbon Dioxide 29 Anion Gap 12 BUN 8 Creatinine 0.7 L Est GFR ( Amer) > 60 Est GFR (Non-Af Amer) > 60 Random Glucose 86 Calcium 8.5 Magnesium 1.7 Total Bilirubin 0.1 L Direct Bilirubin 0.0 AST 33 ALT 18 Alkaline Phosphatase 30 L Total Creatine Kinase 301 H CK-MB (CK-2) 0.6 CK-MB (CK-2) % Cancelled Total Protein 6.0 Albumin 3.3 Globulin 2.7 Albumin/Globulin Ratio 1.2 Attending/Attestation - Attestation I have personally seen and examined this patient.: Yes I have fully participated in the care of the patient.: Yes I have reviewed all pertinent clinical information: Yes Notes (Text): Please see/read my dictated notes.
[2018-04-12 21:42] LABS: TROPONIN I < 0.01 ng/mL
[2018-04-12] MEDS ORDERED: Sodium Chloride 0.9% 1,000 ML IV SCH (21:45)
[2018-04-12 22:34] LABS: CK-MB 14.8 ng/mL (0.0-3.6)
--- NOTE | 2018-04-12 23:22 | CT ---
EXAM: CT Head Without Intravenous Contrast EXAM DATE/TIME: 04/12/2018 9:50 PM CLINICAL HISTORY: The patient age is 27 years old and is male; Signs and symptoms; Alteration of consciousness; Stupor; Additional info: Overdose, lethagic Facility exam id and description: Ct heads head w/o contrast TECHNIQUE: Axial computed tomography images of the head/brain without intravenous contrast. All CT scans at this facility use one or more dose reduction techniques, viz.: automated exposure control; ma/kV adjustment per patient size (including targeted exams where dose is matched to indication; i.e. head); or iterative reconstruction technique. Coronal and sagittal reformatted images were created and reviewed. COMPARISON: No relevant prior studies available. FINDINGS: Brain: The white-silvestre differentiation is preserved demonstrating no acute territorial type infarct. No acute intracranial hemorrhage is seen. No significant white matter disease visualized. There are calcifications within the globus pallidus bilaterally, which are likely physiologic. Midline shift: There is no midline shift. Ventricles: No ventriculomegaly. Bones/joints: The calvarium demonstrates no evidence for a depressed fracture. Soft tissues: No acute abnormality. Sinuses: There is mucosal thickening in the bilateral maxillary sinuses, with a mucus retention cyst or polyp in the left maxillary sinus. The vessel thickening/effusions are visualized within the bilateral ethmoid air cells. There is mild mucosal thickening of the frontal and sphenoid sinuses. Mastoid air cells: No mastoid effusion. IMPRESSION: 1. No acute intracranial abnormality. 2. Paranasal sinus disease is noted above. 3. If further evaluation is clinically indicated, an MRI of the brain is recommended.
[2018-04-12] MEDS: Sodium Chloride 0.9% 1,000 ML IV SCH (23:55)
[2018-04-13 01:38] LABS: TROPONIN I < 0.01 ng/mL
[2018-04-13 01:41] VITALS: BMI 25.9
--- NOTE | 2018-04-13 01:44 | HP ---
HISTORY OF PRESENT ILLNESS: The patient is a 27-year-old male, who was brought to the [facility] emergency room by the [facility] after the patient was reported to have ingested thirty Ativan 2 mg tablets and Ambien 10 mg thirty tablets since last night at 09:00 p.m. The patient stated that he wanted to end his life because it was boring and wanted to go to sleep and not wake up. The patient was found by the family on the floor. 911 was called and according to the ER physician, the patient's family found the patient on the floor, 911 was called and the patient was brought to the emergency room for evaluation. In the emergency room, the patient was found to be arousable. The patient was found to be alert, awake, responsive by the ER physician. CODE STATUS: Full code. LIVING WILL ADVANCED DIRECTIVE: None. ALLERGIES: NONE. HEIGHT: 5 feet 7. BMI: 27. WEIGHT: 170. HOME MEDICATIONS: Seroquel 300 mg at bedtime, Unisom 10 mg at bedtime, Desyrel 300 mg at bedtime, Ambien 10 mg at bedtime, melatonin 10 mg at bedtime, Ativan 2 mg daily, Depakote 500 mg at bedtime. SOCIAL HISTORY: Positive for alcohol. Positive for marijuana. Positive for smoking. OCCUPATIONAL HISTORY: Not applicable. FAMILY HISTORY: Not available. 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 The patient's past medical history is significant for history of alcohol use, history of paranoid-type schizoaffective disorder, history of noncompliance with medication. The patient's past medical history is significant for multiple psychiatric hospitalizations and emergency room visits, paranoid disorder, schizophrenia, history of anxiety disorder, history of impulse control disorder, history of borderline personality disorder, history of paranoid personality disorder, history of psychosis, history of depression, manic symptoms, history of violent behavior, history of behavioral disorder. The patient is in the emergency room in bed #2. The patient was seen by the medical practitioners in the emergency room. PHYSICAL EXAMINATION: GENERAL: The patient is arousable to verbal stimuli, though sleepy. VITAL SIGNS: T-max 98.5; pulse 84, 64; blood pressure 110/73, 119/68; respirations 16-20; O2 sat 100%. HEENT: The patient's head examination normocephalic, atraumatic. The patient does not appear to be in any distress. The patient is alert, awake, oriented x3. Pupils are reactive. Extraocular movements intact. No facial asymmetry. Dry oral mucosa. NECK: No neck rigidity. CHEST: Symmetrical. LUNGS: Shows no rales, crackles or wheezing. CARDIOVASCULAR: S1, S2, regular rhythm. ABDOMEN: Soft. Positive bowel sound. No hepatosplenomegaly noted. GENITALIA: Male. RECTAL: Deferred. EXTREMITY: Shows no pitting edema, no calf tenderness, no Homans' sign. NEUROLOGICAL: The patient is awake, responsive. Cranial nerves II through XII grossly intact. The patient is arousable to verbal stimuli. The patient is slightly sleepy. Speech is normal. Able to move upper and lower extremity without assistance. PSYCHIATRIC: The patient appears to be depressed with suicidal ideation, lethargic. DIAGNOSTIC: EKG shows sinus rhythm with some J-point elevation. CBC shows granulocytes of 72. PT/PTT is normal. Chemistry and LFT shows AST of 100, CPK is 5467. Urinalysis is negative. Urine drug screen is negative. Salicylate, acetaminophen level and alcohol level negative. Valproic acid is 38. Chest x-ray was done in the emergency room. Chest x-ray was reported negative. EKG shows sinus rhythm with some early repolarization changes. The patient was treated in the emergency room by with IV fluid hydration and the patient was admitted to telemetry. IMPRESSION AND PLAN: 1. Questionable and possible acute exacerbation of schizoaffective disorder, bipolar-type disorder. 2. Suicide attempt with drug overdose of thirty tablets of Ativan 2 mg and thirty tablets of Ambien 10 mg. 3. Acute exacerbation of depression. 4. Suicide attempt. 5. Acute exacerbation of schizoaffective disorder and bipolar disorder. 6. History of psychosis. 7. Granulocytosis. 8. Transaminitis with elevated AST. 9. Rhabdomyolysis with elevated CPK. 10. History of poor compliance. 11. History of multiple psychiatric inpatient hospitalizations with history of schizoaffective disorder, history of schizophrenia, history of bipolar disorder with psychosis, history of poor compliance. Plan at this time, the patient will be placed on telemetry observation. The patient has been ordered hepatitis panel, serial labs, serial CPK, troponin ordered. Human immunodeficiency virus ordered. Repeat CBC ordered. Consultation, Psychiatry ordered. The patient is started on deep venous thrombosis prophylaxis, gastrointestinal prophylaxis, IV fluid hydration has been ordered. The patient has been ordered one-to-one. CT head has been ordered. One-to-one sitter has been ordered. Neuro checks ordered. Seizure precautions, JD stockings, sequential compression devices ordered. At present, the patient's family was informed about the patient's condition in the ER. The patient needs to be admitted to the medical floor for management of rhabdomyolysis and then the patient will also be evaluated by Psychiatry and the patient's further management will be dependent upon the Psychiatry recommendation. The patient's psychiatric medications including Seroquel, Unisom, Desyrel, Ambien, Melatonin, Ativan, Depakote will be resumed at the discretion of the psychiatrist's evaluation. At this time, the patient's pending diagnostic data will be reviewed when available. Dictated and electronically signed, not read. Ti Medina MD
[2018-04-13 02:17] LABS: CK MB% 0.4 % (2.5-3.0); CK-MB 12.3 ng/mL (0.0-3.6)
[2018-04-13] MEDS: Sodium Chloride 0.9% 1,000 ML IV SCH ×5 (03:53→21:10)
[2018-04-13 04:17] LABS: ARTERIAL BLOOD GAS O2 SAT 100.1 % (95-98); ARTERIAL BLOOD GAS PCO2 43 mm/Hg (35-45); ARTERIAL BLOOD GAS PH 7.39 (7.35-7.45); ARTERIAL BLOOD GAS TCO2 27.3 mmol.L (22-28)
[2018-04-13] MEDS: Pantoprazole 40 mg EC Tab PO SCH ×2 (06:45→16:11)
[2018-04-13 07:59] LABS: BASO # 0.04 K/mm3 (0.0-2.0); BASO % 0.6 % (0.0-3.0); EOS # 0.4 (0.0-0.7); EOS % 5.5 % (1.5-5.0); GRAN # 3.81 (1.4-6.5); GRAN % 53.9 % (50.0-68.0); HEMOGLOBIN 13.4 g/dL (14.0-18.0); LYMPH # 2.3 (1.2-3.4); LYMPH % 32.4 % (22.0-35.0); MEAN CELL VOLUME 82.2 fl (80.0-105.0); MEAN CORPUSCULAR HEMOGLOBIN 26.7 pg (25.0-35.0); MEAN CORPUSCULAR HGB CONC 32.5 g/dl (31.0-37.0); MONO # 0.5 (0.1-0.6); MONO % 7.6 % (1.0-6.0); RBC 5.01 10^6/uL (3.5-6.1); RED CELL DISTRIBUTION WIDTH 13.8 % (11.5-14.5); WHITE BLOOD COUNT 7.1 10^3/ul (4.5-11.0)
[2018-04-13 08:20] LABS: TROPONIN I < 0.01 ng/mL
[2018-04-13 08:24] LABS: ALB/GLOB RATIO 1.4 (1.1-1.8); ALBUMIN 3.4 g/dL (3.0-4.8); ALT/SGPT 21 U/L (7-56); AST/SGOT 69 U/L (17-59); BLOOD UREA NITROGEN 11 mg/dL (7-21); CALCIUM 8.2 mg/dL (8.4-10.5); GFR AFRICAN-AMERICAN > 60; GFR NON-AFRICAN AMERICAN > 60
[2018-04-13 08:55] LABS: HDL CHOLESTEROL 51 mg/dL (29-60)
[2018-04-13 09:04] LABS: LDL CHOLESTEROL 54 mg/dL (0-129)
[2018-04-13 09:49] LABS: CK MB% 0.4 % (2.5-3.0); CK-MB 9.1 ng/mL (0.0-3.6)
[2018-04-13 10:01] LABS: FREE T4 1.18 ng/dL (0.78-2.19); T4 6.4 ug/dL (5.5-11.0)
--- NOTE | 2018-04-13 11:01 | PN ---
DATE: 04/13/2018 SUBJECTIVE: The patient is now in room 272, bed 2. The patient is on one-to-one. The patient is lying in the bed. The patient is arousable, awake, responsive, answers questions appropriately. The patient is alert, awake, responsive, oriented to person, place and time. Overnight nurse's notes were reviewed. The patient was continued on one-to-one. IV fluid was continued. PHYSICAL EXAMINATION: VITAL SIGNS: T-max 98.8; telemetry shows sinus rhythm, heart rate 87, 81, 89; blood pressure 115/78, 126/92, 115/77; respirations 18-20; O2 sat 96-98%. HEENT: Head examination normocephalic, atraumatic. HEENT examination shows pink conjunctivae. Anicteric sclerae. No oropharyngeal lesion. Dry oral mucosa. No neck rigidity. CHEST: Symmetrical. LUNGS: Shows no rales, crackles or wheezing. CARDIOVASCULAR: S1, S2, regular rhythm. ABDOMEN: Soft. Positive bowel sound. No hepatosplenomegaly noted. No guarding. No rigidity. No rebound tenderness. GENITALIA: . RECTAL: Deferred. EXTREMITY: Shows no pitting edema, no calf tenderness, no Homans' sign. NEUROLOGICAL: The patient is alert, awake, oriented x3. Cranial nerves II through XII limited. Gait examination is not tested. VASCULAR: Palpable pulses. PSYCHIATRIC: Positive for anxiety, depression, schizophrenia, psychosis and suicide attempt. DIAGNOSTICS: On 04/13/2018, WBC 7.1, hemoglobin and hematocrit 13.4 and 41.2, platelet 183. ABG was done, which shows on room air pH of 7.39, pCO2 of 43, pO2 of 90, bicarb 26, saturation of 100%. Chemistry is pending. CPK is still elevated at 3130, down from 5467. Urinalysis is negative. The patient had a CT of the head was done, which shows physiological globus pallidus calcification bilaterally. Bilateral maxillary sinus retention cyst or polyp and bilateral ethmoid air cell effusion and frontal and sphenoid sinus mucosal thickening noted. Chest x-ray shows decreased inspiratory volume. No infiltrates. EKG was done. EKG shows sinus rhythm. IMPRESSION AND PLAN: 1. Suicide attempt. 2. Ativan and Ambien drug overdose. 3. Acute exacerbation of depression, schizophrenia, schizoaffective disorder. 4. History of bipolar disorder. 5. Granulocytosis. 6. Mild transaminitis. 7. Rhabdomyolysis, slow resolving. 8. Rhabdomyolysis with elevated CPK. 9. History of poor compliance. 10. History of schizophrenia, schizoaffective disorder with paranoid disorder and bipolar disorder. 11. History of anxiety disorder, history of impulse control disorder, history of borderline paranoid personality disorder, history of psychosis, hallucinations, paranoia, history of anxiety, depression, history of behavioral disorder with aggressive and violent behavior. History of nicotine, alcohol and marijuana use and abuse. 1. Questionable and possible acute exacerbation of schizoaffective disorder, bipolar-type disorder. 2. Suicide attempt with drug overdose of thirty tablets of Ativan 2 mg and thirty tablets of Ambien 10 mg. 3. Acute exacerbation of depression. 4. Suicide attempt. 5. Acute exacerbation of schizoaffective disorder and bipolar disorder. 6. History of psychosis. 7. Granulocytosis. 8. Transaminitis with elevated AST. 9. Rhabdomyolysis with elevated CPK. 10. History of poor compliance. 11. History of multiple psychiatric inpatient hospitalizations with history of schizoaffective disorder, history of schizophrenia, history of bipolar disorder with psychosis, history of poor compliance. Plan at this time, the patient has been ordered thyroid panel. Hepatitis panel pending. Lipid panel pending. Vitamin D 25-hydroxy pending. Repeat CMP, CPK, LFT, magnesium pending. HIV results pending. CBC pending. RPR pending. Presently, the patient is awaiting evaluation by Psychiatry. Current medications: Heparin 5000 subcu every 8, Protonix 40 mg daily, IV fluid 0.9 normal saline at 250 mL an hour. The patient is on one-to-one. The patient is on regular diet. Neuro checks every 2 hours. Seizure precaution, thromboembolic disease stockings, sequential compression devices. The patient will be continued on above therapeutic intervention until further evaluation by Psychiatry. The patient is still awaiting evaluation by Psychiatry. The patient's further management will be dependent upon the Psychiatry evaluation and recommendation. Dictated and electronically signed, not read. Ti Medina MD [facility] # [id number] KIKE
[2018-04-13 11:54] LABS: HEPATITIS B SURFACE AG Negative (NEGATIVE)
[2018-04-13 12:00] LABS: HEPATITIS A IGM NEGATIVE (NEGATIVE); HEPATITIS B CORE AB NEGATIVE (NEGATIVE)
[2018-04-13 12:11] LABS: HEPATITIS C ANTIBODY NEGATIVE (NEGATIVE)
[2018-04-13] MEDS: Lidocaine 5% Patch TD SCH (12:19)
--- NOTE | 2018-04-13 12:31 | RAD ---
PROCEDURE: Pelvis right hip of dated 04/13/2018 HISTORY: Status post fall on R side c/o of hip pain COMPARISON: No prior study available for comparison abdomen TECHNIQUE: Frontal view of the pelvis and frontal/ frogleg lateral view right hip performed. FINDINGS: No evidence of acute displaced fracture nor dislocation. The osseous structures intact. IMPRESSION: No acute fractures. If symptoms persist or occult fracture suspected clinically, consider followup CT scan or MRI.
--- NOTE | 2018-04-13 17:10 | CARD ---
APPROVED REPORT EKG Measurement Heart [id number] <Conclusion> Normal sinus rhythm Possible Acute pericarditis Abnormal ECG
[2018-04-13] MEDS: Divalproex 500 mg ER (ONCE DAILY formulation) PO SCH (21:10)
--- NOTE | 2018-04-13 22:34 | CON ---
HISTORY OF PRESENT ILLNESS: Patient is a single 27-year-old male with a psychiatric history of schizoaffective disorder with numerous prior hospitalizations most recently at [facility] in 08/2016, no prior suicide attempts and outpatient treatment with Dr. Olivo and compliant with prescribed medications, who is being medically stabilized after taking an overdose of thirty 10 mg Ambien and 30 tablets of 2 mg of Ativan as a suicide attempt. I reviewed recent notes and I met with patient at bedside who appears to be depressed, preoccupied with constricted affect and oriented to month, year, location and circumstances. Patient is likely compliant with his medications because he can participate in this interview coherently. Patient becomes obviously disorganized, delusional and paranoid when he is noncompliant. Generally he cannot participate in any meaningful dialogue during these decompensations. Patient indicated that he has been very depressed because of medications that he has been prescribed by Dr. Akers. Per patient, these include Seroquel, Depakote, trazodone, Ambien, Ativan and Haldol per patient. Patient reported that he followed up with Dr. Akers earlier this week who decreased his dose of Depakote to 500 mg at bedtime because patient complained of feeling too sedated and not having enough energy to do anything during the day. Patient reports that he feels hopeless and he tired of taking medications. He is tired of "feeling zoned out, I cannot get anything accomplished". He denies having any hallucinations or paranoia. In general, patient reports feeling very helpless. He denies having any suicidal thoughts right now; however, I questioned patient's truthfulness and he still requires 1:1. He has been in fair control on the unit thus far and there have been no behavioral issues. Denies any current discomfort or pain. Does not appear to be responding to internal stimuli. No delusions were elicited. Insight and judgment are poor. PSYCHIATRIC HISTORY: As noted, the patient has a history of schizoaffective disorder and generally when he decompensates, he decompensates with persistence of bizarre, paranoid behavior, delusions, disorganization as well as at times violent behavior which has required restraints in the past. The patient is in treatment with Dr. Akers and reports being prescribed Depakote, trazodone, Ambien, Ativan, Haldol as well as Seroquel however, patient reported very little relief with this decrease. Patient denies having any history of suicide attempts except for most recent one. Patient has had multiple hospitalizations including [facility], [facility], and [place] as well as numerous hospitalizations at this facility. His most recent hospitalization at this facility was in 08/2016 and due to his recurrent decompensation, long-term treatment was recommended to the patient if he should present to the ER again. The patient was discharged on Depakote 1000 a.m. and at bedtime, Remeron 15 at bedtime and Zyprexa Zydis 15 a.m. and at bedtime. SOCIAL HISTORY: He is single. He lives with his parents. He is unemployed. Graduated high school and did not go to college and has a history of polysubstance abuse and alcoholism MEDICATIONS: The patient is not on any current psychiatric medications on on the medical floor. VITAL SIGNS: Reviewed by this provider. LABORATORY DATA: Reviewed by this provider. Labs indicated that the patient has been compliant with Depakote as Depakote level was 38 at presentation. UDS was negative. IMPRESSION: Schizoaffective disorder, depressed type. RECOMMENDATIONS: I recommended that the patient be transferred to Psychiatric Inpatient Unit once he is medically stabilized and I will restart some of his medications at this time to ensure that patient continues to be psychiatrically stable, consider antidepressants and in consideration of the patient's complaints. I also discussed the option of Clozaril; however, the patient appears ambivalent at this time. Please note that the patient is not psychiatrically cleared for discharge, should he be medically cleared. He should be transferred to the psychiatric unit and should be with one-to-one at this time. Nikita Vasquez MD KIKE
[2018-04-14] MEDS: Pantoprazole 40 mg EC Tab PO SCH ×2 (06:10→16:26)
[2018-04-14 07:50] LABS: BASO # 0.03 K/mm3 (0.0-2.0); BASO % 0.6 % (0.0-3.0); EOS # 0.4 (0.0-0.7); EOS % 7.6 % (1.5-5.0); GRAN # 2.2 (1.4-6.5); GRAN % 41.8 % (50.0-68.0); HEMOGLOBIN 12.8 g/dL (14.0-18.0); LYMPH # 2.1 (1.2-3.4); LYMPH % 39.2 % (22.0-35.0); MEAN CELL VOLUME 82.1 fl (80.0-105.0); MEAN CORPUSCULAR HEMOGLOBIN 26.9 pg (25.0-35.0); MEAN CORPUSCULAR HGB CONC 32.8 g/dl (31.0-37.0); MONO # 0.6 (0.1-0.6); MONO % 10.8 % (1.0-6.0); RBC 4.75 10^6/uL (3.5-6.1); RED CELL DISTRIBUTION WIDTH 13.7 % (11.5-14.5); WHITE BLOOD COUNT 5.3 10^3/ul (4.5-11.0)
[2018-04-14 08:04] LABS: ALB/GLOB RATIO 1.4 (1.1-1.8); ALBUMIN 3.5 g/dL (3.0-4.8); ALT/SGPT 22 U/L (7-56); AST/SGOT 57 U/L (17-59); BLOOD UREA NITROGEN 10 mg/dL (7-21); CALCIUM 8.8 mg/dL (8.4-10.5); GFR AFRICAN-AMERICAN > 60; GFR NON-AFRICAN AMERICAN > 60
[2018-04-14 08:29] LABS: CK-MB 2.6 ng/mL (0.0-3.6)
[2018-04-14] MEDS: Lidocaine 5% Patch TD SCH (09:18)
[2018-04-14] MEDS ORDERED: Ergocalciferol 50,000 Intl Units Cap PO SCH (12:45)
[2018-04-14] MEDS: Sodium Chloride 0.9% 1,000 ML IV SCH ×3 (13:09→20:27)
--- NOTE | 2018-04-14 17:01 | PN ---
DATE: 04/14/2018 SUBJECTIVE: The patient is seen in room 272, bed 2. The patient is seen lying in the bed. The patient is still on one-to-one sitter. The patient is alert, awake, responsive, follows command. The patient was able to stand up on his own. The patient was able to ambulate and take few steps on his own without any complaints. The patient is alert, awake, responsive, oriented x3. Overnight nurse's notes were reviewed. The patient stayed on one-to-one. The patient was seen by Psychiatry yesterday. Their recommendation was noted. PHYSICAL EXAMINATION: VITAL SIGNS: T-max 98.1-98.5; Telemetry shows sinus rhythm, sinus tachycardia, heart rate averaging between 67, 63, 83; blood pressure 137/92, 127/80, 110/74, 122/79, 115/78, 126/92; respiration 18-20; O2 sat 99-97%. HEENT: Head examination normocephalic, atraumatic. HEENT examination shows pinkish conjunctivae. Anicteric sclerae. Dry oral mucosa. No neck rigidity. CHEST: Symmetrical. LUNGS: Shows no rales, crackles or wheezing. CARDIOVASCULAR: S1, S2, regular rhythm. No audible murmur, gallop or rub. ABDOMEN: Soft. Positive bowel sound. GENITALIA: Male. RECTAL: Deferred. EXTREMITY: Shows positive SCDs. Body mass index is 24.4. NEUROLOGICAL: The patient is alert, awake, oriented x3. Cranial nerves II through XII intact and limited. Gait examination briefly tested. Motor strength appears to be 5/5 in upper and lower extremity. DIAGNOSTICS: On 04/14/2018, WBC 5.3, hemoglobin and hematocrit 12.8 and 39, platelet 168. Differential is within normal limit. Sodium 144, potassium 3.4, chloride 107, CO2 of 28, anion gap 12, BUN 10, creatinine 0.7, GFR greater than 60, glucose 91, hemoglobin A1c 5.6. CPK has come down to 1342 from 5467. LFTs are normal. Vitamin D 25-hydroxy is 31. Cholesterol 127, LDL 54, HDL 51. Thyroid profile is within normal limit. The patient had a hip and pelvic x-rays done yesterday because of complaints of hip pain. There was no evidence of acute fractures. The patient was seen by psychiatrist, by Dr. Vasquez. The recommendations were noted and the patient was not psychiatrically cleared for discharge, which was explained to the patient. IMPRESSION AND PLAN: 1. Suicide attempt. 2. Ambien and Ativan overdose. 3. Acute exacerbation of depression and anxiety. 4. Constricted affect. 5. Rhabdomyolysis. 6. Delusional disorder with paranoia, history of noncompliance. 7. Acute exacerbation of schizoaffective disorder. 8. Paranoid behavior, delusion and disorganized thought disorder with violent behavior. 9. History of multiple psychiatric hospitalization. 10. Schizoaffective disorder, depressed type. 11. Mild normocytic anemia, probably dilutional with transient granulocytosis. 12. Hypokalemia. 13. Hypovitaminosis D. 14. Transaminitis (resolved). 1. Suicide attempt. 2. Ativan and Ambien drug overdose. 3. Acute exacerbation of depression, schizophrenia, schizoaffective disorder. 4. History of bipolar disorder. 5. Granulocytosis. 6. Mild transaminitis. 7. Rhabdomyolysis, slow resolving. 8. Rhabdomyolysis with elevated CPK. 9. History of poor compliance. 10. History of schizophrenia, schizoaffective disorder with paranoid disorder and bipolar disorder. 11. History of anxiety disorder, history of impulse control disorder, history of borderline paranoid personality disorder, history of psychosis, hallucinations, paranoia, history of anxiety, depression, history of behavioral disorder with aggressive and violent behavior. History of nicotine, alcohol and marijuana use and abuse. 1. Questionable and possible acute exacerbation of schizoaffective disorder, bipolar-type disorder. 2. Suicide attempt with drug overdose of thirty tablets of Ativan 2 mg and thirty tablets of Ambien 10 mg. 3. Acute exacerbation of depression. 4. Suicide attempt. 5. Acute exacerbation of schizoaffective disorder and bipolar disorder. 6. History of psychosis. 7. Granulocytosis. 8. Transaminitis with elevated AST. 9. Rhabdomyolysis with elevated CPK. 10. History of poor compliance. 11. History of multiple psychiatric inpatient hospitalizations with history of schizoaffective disorder, history of schizophrenia, history of bipolar disorder with psychosis, history of poor compliance. Plan at this time, the patient was seen by Psychiatry. Their recommendations noted and therapeutic interventions noted. The patient has been ordered repeat CMP, LFT, magnesium, CPK. Repeat CBC ordered. Psychiatric evaluation noted. CURRENT MEDICATIONS: 1. Depakote 1000 mg at bedtime. 2. Desyrel/trazodone 50 mg at bedtime. 3. Drisdol 50,000 units weekly. 4. Heparin 5000 subcu every 8. 5. Lidoderm 5% patch to the affected area of pain. 6. Paxil 10 mg daily. 7. The patient is ordered KCl riders 20 mEq x2, Protonix 40 mg daily. 8. Seroquel 200 mg at bedtime. 9. IV fluid 0.9 normal saline at 250 mL an hour ordered until complete normalization of the CPK. The patient is on regular diet, one-to-one sitter. Telemetry discontinued. Move the patient to in front of the nursing station. DVT prophylaxis ordered. Physical therapy, occupational therapy ordered. At present, the patient will be continued on the above therapeutic intervention. Once the patient is medically cleared, the patient will be transferred to Psychiatry as per the Psychiatry recommendation. The patient will be continued on one to one as per psychiatric recommendations. Dictated and electronically signed, not read. Ti Medina MD [email or web address]
[2018-04-14] MEDS: Divalproex 500 mg ER (ONCE DAILY formulation) PO SCH (21:25)
[2018-04-15] MEDS: Sodium Chloride 0.9% 1,000 ML IV SCH ×5 (00:27→19:49)
[2018-04-15] MEDS: Pantoprazole 40 mg EC Tab PO SCH ×2 (05:16→16:05)
[2018-04-15 06:35] LABS: BASO # 0.04 K/mm3 (0.0-2.0); BASO % 0.7 % (0.0-3.0); EOS # 0.6 (0.0-0.7); EOS % 9.6 % (1.5-5.0); GRAN # 1.9 (1.4-6.5); GRAN % 32.4 % (50.0-68.0); HEMOGLOBIN 12.6 g/dL (14.0-18.0); LYMPH # 2.9 (1.2-3.4); LYMPH % 49.1 % (22.0-35.0); MEAN CELL VOLUME 81.9 fl (80.0-105.0); MEAN CORPUSCULAR HEMOGLOBIN 26.6 pg (25.0-35.0); MEAN CORPUSCULAR HGB CONC 32.5 g/dl (31.0-37.0); MEAN PLATELET VOLUME 9.7 fl (7.0-11.0); MONO # 0.5 (0.1-0.6); MONO % 8.2 % (1.0-6.0); RBC 4.74 10^6/uL (3.5-6.1); RED CELL DISTRIBUTION WIDTH 13.7 % (11.5-14.5); WHITE BLOOD COUNT 5.9 10^3/ul (4.5-11.0)
[2018-04-15 08:35] LABS: ALB/GLOB RATIO 1.3 (1.1-1.8); ALBUMIN 3.4 g/dL (3.0-4.8); ALT/SGPT 15 U/L (7-56); AST/SGOT 42 U/L (17-59); BLOOD UREA NITROGEN 11 mg/dL (7-21); CALCIUM 8.9 mg/dL (8.4-10.5); GFR AFRICAN-AMERICAN > 60; GFR NON-AFRICAN AMERICAN > 60
[2018-04-15 08:59] LABS: CK-MB 1.2 ng/mL (0.0-3.6)
--- NOTE | 2018-04-15 09:19 | CON ---
DATE: 04/14/2018 HISTORY OF PRESENT ILLNESS: Patient is a single 27-year-old male with history of schizoaffective disorder with numerous prior hospitalizations, no prior suicide attempts, who is being medically stabilized after his first suicide attempt of overdosing on thirty 10 mg Ambien and 30 tablets of 2 mg of Ativan. I met with patient at bedside yesterday as well as today. Patient is quite forthcoming about the fact that he tried to overdose to kill himself. Patient has indicted that he is tired of taking medications though he is sedated. He feels too tired to do anything productive with his life. He is not disorganized during my interview, but he is internally preoccupied. He denies having any hallucination and he is not responding to internal stimuli and his responses are relevant to questioning and they are consistent. However, he is not entirely engaged with my interview and he has not been very engaged with staff members and has refused some of their recommendations including his morning medications today. He states he is depressed. I feel like he is still a risk to himself as he appears guarded and he does have a history of unpredictable behavior. His insight and judgement are poor. Nonetheless, he is going to sign himself into Psychiatric Unit voluntarily when he is medically stabilized. Otherwise, if he is medically cleared and he refuses to sign in, he needs to be screened for involuntary commitment as he is a danger to himself presently. We will continue one to one. Labs and vitals were reviewed by this provider. RELEVANT PSYCHIATRIC MEDICATIONS: Include Depakote 1000 mg at bedtime which patient took last night, Paxil 10 mg daily which patient refused this morning, even though he was agreeable, when we discussed this option in the morning. Seroquel 200 mg at bedtime, and trazodone 50 mg at bedtime. IMPRESSION: Schizoaffective depression. RECOMMENDATIONS: 1. We will continue with current medications Depakote ER 1000 mg at bedtime as well as Seroquel 200 at bedtime, and trazodone at bedtime. Patient to be transferred to Psychiatric Unit for further observation and medication management. the idea of initiating Clozaril treatment ; however, he is not super reliable regarding his commitments on medications, considering patient refused Paxil this morning, even though he was also in agreement with that medication. Patient is overall on the Clozaril and so patient is transferred to the psychiatric floor where he could be observed very closely. 2. Dr. Charissa Aggarwal will follow up with patient on 04/15/2018. 3. Please note that patient is not psychiatrically cleared for discharge. If he insists on leaving, he is not to leave AMA. If he is refuses to sign in on a voluntary basis to Psychiatric Unit , a screen should be called for involuntary commitment. Nikita Vasquez MD
[2018-04-15] MEDS: Lidocaine 5% Patch TD SCH (09:47)
--- NOTE | 2018-04-15 12:16 | CP.PCM.PN ---
<Aleyda Olson - Last Filed: 04/15/18 12:40> Subjective - Date & Time of Evaluation Date of Evaluation: 04/15/18 Time of Evaluation: 12:13 - Subjective Subjective: Medicine Progress Note - Dr Medina Service: Patient seen and examined at bedside. Per nursing no acute events overnight. Patient is doing well, offers no complaints at this time. Patient is tolerating diet and ambulating. Patient was seen by psych over the weekend who is recommending admission to psych once medically cleared. Denies auditory or visual hallucinations. Denies suicidal ideation. Denies headaches, dizziness, N/ V, cp, palpitations, sob, abdominal pain, urinary symptoms. Objective - Vital Signs/Intake and Output Vital Signs (last 24 hours): Temp Pulse Resp BP Pulse Ox 97.7 F 68 19 113/82 99 04/15/18 07:43 04/15/18 07:43 04/15/18 07:43 04/15/18 07:43 04/15/18 07:43 Intake and Output: 04/15/18 04/15/18 06:59 18:59 Intake Total 540 Balance 540 - Medications Medications: Current Medications Divalproex Sodium (Depakote Er(Once Daily)) 1,000 mg PO HS [facility] PRN Reason: Protocol Last Admin: 04/14/18 21:25 Dose: 1,000 mg Ergocalciferol (Drisdol 50,000 Intl Units Cap) 1 cap PO Q7D [facility] Last Admin: 04/14/18 13:08 Dose: 1 cap Heparin Sodium (Porcine) (Heparin) 5,000 units SC Q8 [facility] PRN Reason: Protocol Last Admin: 04/15/18 05:16 Dose: Not Given Sodium Chloride (Sodium Chloride 0.9%) 1,000 mls @ 250 mls/hr IV .Q4H [facility] Stop: 04/16/18 05:29 Last Admin: 04/15/18 11:34 Dose: 250 mls/hr Lidocaine (Lidoderm) 1 ea TD DAILY [facility] Last Admin: 04/15/18 09:47 Dose: 1 ea Pantoprazole Sodium (Protonix Ec Tab) 40 mg PO 0600,1600 [facility] Last Admin: 04/15/18 05:16 Dose: 40 mg Paroxetine HCl (Paxil) 10 mg PO DAILY [facility] Last Admin: 06/04/18 09:47 Dose: 10 mg Quetiapine Fumarate (Seroquel) 200 mg PO HS [facility] PRN Reason: Protocol Last Admin: 04/14/18 21:26 Dose: 200 mg Trazodone HCl (Desyrel) 50 mg PO HS [facility] Last Admin: 04/14/18 21:26 Dose: 50 mg - Labs Labs: 04/15/18 05:30 04/15/18 05:30 PT 11.7 SECONDS (9.4-12.5) 04/12/18 21:10 INR 1.03 (0.93-1.08) 04/12/18 21:10 APTT 28.5 Seconds (25.1-36.5) 04/12/18 21:10 - Constitutional Appears: Well, Non-toxic, No Acute Distress - Head Exam Head Exam: ATRAUMATIC, NORMAL INSPECTION, NORMOCEPHALIC - Eye Exam Eye Exam: EOMI, Normal appearance Pupil Exam: NORMAL ACCOMODATION - ENT Exam ENT Exam: Mucous Membranes Moist - Neck Exam Neck Exam: Full ROM - Respiratory Exam Respiratory Exam: Clear to Ausculation Bilateral, NORMAL BREATHING PATTERN. absent: Rales, Rhonchi, Wheezes - Cardiovascular Exam Cardiovascular Exam: REGULAR RHYTHM, +S1, +S2 - GI/Abdominal Exam GI & Abdominal Exam: Soft, Normal Bowel Sounds. absent: Guarding, Rigid, Tenderness - Extremities Exam Extremities Exam: Normal Inspection - Back Exam Back Exam: NORMAL INSPECTION - Neurological Exam Neurological Exam: Alert, Awake, Oriented x3 - Psychiatric Exam Psychiatric exam: Flat Affect - Skin Skin Exam: Dry, Normal Color, Warm Assessment and Plan - Assessment and Plan (Free Text) Assessment: A/P: 27 year old male with past medical history of schizoaffective disorder, bipolar disorder presented after first suicide attempt where he took 30 tablets of ambien and 30 tablets of ativan, patient also found to have rhabdomyolysis with CPK of 5467 on admission -Stable, afebrile -Continue IV fluid hydration -Monitor CPK levels until normalizes, today CPK 681 -UTOX negative, valproic acid 38 on admission -Continue Depakote 1000mg PO HS, Seroquel 200mg PO HS, Paxil 10mg PO daily, Trazodone 50mg PO HS -Continue 1:1 sitter, Seizure precautions -Psych on consult, help appreciated -Hip X ray: no acute fractures -Lidoderm patch for pain -Activity: OOB to chair -Physical therapy/Occupational therapy ordered -Vitamin D Deficiency - continue ergocalciferol 1tab PO Q7D -GI/DVT ppx: Protonix 40mg PO BID, Heparin 5000 units Q8H -Plan discussed with Dr Carol Olson DO PGY-1 <Ti Medina U - Last Filed: 04/16/18 17:12> Objective - Vital Signs/Intake and Output Vital Signs (last 24 hours): Temp Pulse Resp BP Pulse Ox 98.2 F 83 18 114/82 100 04/16/18 07:56 04/16/18 07:56 04/16/18 07:56 04/16/18 07:56 04/16/18 07:56 Intake and Output: 04/16/18 04/16/18 06:59 18:59 Intake Total 660 Balance 660 - Labs Labs: 04/15/18 05:30 04/16/18 05:30 PT 11.7 SECONDS (9.4-12.5) 04/12/18 21:10 INR 1.03 (0.93-1.08) 04/12/18 21:10 APTT 28.5 Seconds (25.1-36.5) 04/12/18 21:10 Attending/Attestation - Attestation I have personally seen and examined this patient.: Yes I have fully participated in the care of the patient.: Yes I have reviewed all pertinent clinical information, including history, physical exam and plan: Yes Notes (Text): Please see/read my dictated notes.
--- NOTE | 2018-04-15 20:22 | PN ---
DATE: 04/15/2018 SUBJECTIVE: In short, the patient is a 27-year-old male with long debilitating history of psychiatric illness, most likely the patient has schizoaffective versus schizophrenia. Patient has chronic noncompliance with the medication and followup appointments. This time, patient was admitted status post suicidal attempt on Ambien and Ativan. Previous records reviewed. Discussed with the medical staff, including Dr. Medina as well as nursing staff. Patient is very familiar to this marketing copywriter from the multiple hospitalizations in the [facility] into the Psychiatric Inpatient Unit. Patient has chronic noncompliance with the medication, history of involuntary commitment in the past. Patient also has history of polysubstance abuse and dependence, but not this time. Patient was recently discharged from [facility] where he spent more than 4 months. Patient was discharged under PACT team services, but as per patient, he was not followed up with them "because I don't like them". Patient is seen today, presented to be disorganized, giggling inappropriately. Affect was mood incongruent. Patient was talking about suicide and laughing at the same time. Patient presented to be superficially cooperative, but based on the previous history, patient will find the way to admit himself into the hospital and will refuse to take medication and signing 48-hour notice. As per staff, patient was compliant with the medications. Patient currently is on one-to-one. Patient denied hearing voices, denied seeing things, but as per Dr. Vasquez's note, patient presented to be psychotic. Vital signs reviewed. Temperature 97.7, pulse is 68, blood pressure 113/82, respiration 19, oxygen saturation is 99. Medications are reviewed. Patient is on Depakote 1000 mg at the nighttime, Drisdol, heparin with Lidoderm, Protonix, Paxil 10 mg daily, Seroquel 200 mg at the nighttime, sodium chloride, and trazodone 50 mg. Labs reviewed, most recent from today. Hemoglobin and hematocrit 12.6 and 38 respectively. Chemistry reviewed. Potassium 3.4 yesterday and today 3.8. AST and ALT within normal limits. Urinalysis within normal limits. Toxicology is negative for any substances, but valproic acid was 38. Based on the record, patient was not taking valproic acid that was prescribed. Reports reviewed. Mental status examination: as this marketing copywriter described above. Patient was disorganized, inappropriate affect. Patient was giggling inappropriately. Intermittent eye contacts. Speech was minimal, underproductive. Thought process, disorganized. Mood described as, "I am fine." Thought content, patient appears to be disorganized, internally preoccupied and responding to internal stimuli despite the fact that patient denied hearing voices or seeing things. Patient presented to be psychotic. Insight and judgment seems to be limited. Impulses are well controlled as of now. IMPRESSION: As per history, schizophrenia versus schizoaffective disorder, chronic noncompliance with the medications. Patient does not want to take injectable form of the medication because of "it gives me hallucinations," which is not true. PLAN: Continue current management. Continue current medication. This marketing copywriter is awaiting for medical clearance for this patient. Patient gave permission to talk to his mother, . PACT team also will be contacted. This marketing copywriter also called to the patient's pharmacy, [facility] at [phone]. Most recent medications were haloperidol [address] daily prescribed [address] Bashir Akers, filled on 03/28. Patient also was on Depakote 500 mg at the nighttime, prescribed by Dr. Bashir Akers, filled on 03/28. Patient was on Ambien 10 mg at the nighttime, filled on 04/09; lorazepam 2 mg daily, prescribed by Dr. Bashir Akers, filled on 04/09; Seroquel was filled on 04/01 at 400 mg daily as well as olanzapine [address] Bashir Akers, filled on 03/28 as well as trazodone 150 mg at the nighttime, filled on 03/28 by the same prescriber. We will continue current management. Dr. Vasquez discussed Clozaril with the patient. We will explore that option. Whenever patient's family is visiting, we will have family meeting before transferring patient from the psychiatric inpatient unit and this marketing copywriter is waiting for medical clearance. Thank you very much for letting me participate in the care of your patient. Charissa Aggarwal MD [facility]
[2018-04-15] MEDS: Divalproex 500 mg ER (ONCE DAILY formulation) PO SCH (22:27)
[2018-04-15] MEDS ORDERED: Sodium Chloride 0.9% 1,000 ML IV SCH (22:30)
[2018-04-16] MEDS: Sodium Chloride 0.9% 1,000 ML IV SCH (00:04)
--- NOTE | 2018-04-16 03:22 | PN ---
DATE: 04/15/2018 SUBJECTIVE: The patient is seen in room 362 bed 1. The patient is lying in the bed and smiling. The patient appears to be in no distress. The patient is still on one-to-one. The patient's overnight nurse's notes were reviewed. The patient is to be maintained on one-to-one because of suicide risk. PHYSICAL EXAMINATION: VITAL SIGNS: T-max 98; pulse 57, 68, 62; blood pressure 113/82, 123/79; respirations 18 to 20; O2 sat 99%. GENERAL: The patient was seen lying in the bed. HEAD: Normocephalic, atraumatic. HEENT: Shows pink conjunctivae. Anicteric sclerae, dry oral mucosa. NECK: No neck rigidity. CHEST: Kyphosis. LUNGS: Shows no rales, crackles or wheezing. CARDIOVASCULAR: S1, S2, regular rhythm. No audible murmur, gallop or rub. ABDOMEN: Soft. Positive bowel sound. No hepatosplenomegaly noted. No guarding. No rigidity. No rebound tenderness. GENITALIA: Male. RECTAL: Deferred. EXTREMITY: Shows no pitting edema, no calf tenderness, no Homans' sign. Motor strength is 5/5. Gait examination is independent. VASCULAR: Palpable pulses. DIAGNOSTICS: On 04/15, WBC 5.9; hemoglobin/hematocrit 12.6, 38.8; platelet 183. Granulocytes . Sodium 145, potassium is up to 3.8, chloride 111, CO2 24, anion gap 13, BUN 11, creatinine 0.7. GFR greater than 60. Glucose 86, calcium 8.9, magnesium 1.8. LFTs are normal. CPK is down to 681 from admission CPK of 5467. Rest of the LFTs are normal. Vitamin D 25-hydroxy is low normal at 31. Lipid panel is within normal limit. IMPRESSION AND PLAN: 1. Status post suicide attempt. 2. Status post Ambien and Ativan drug overdose. 3. Physiological globus pallidus bilateral calcification. 4. Bilaterally maxillary sinus mucosal thickening and mucros retention cyst or left maxillary sinus polyp. 5. Bilateral ethmoid air cell thickening and effusion. 6. Frontal and sphenoid sinus mucosal thickening. 7. Paranasal sinus disease. 8. Decreased inspiratory pulmonary volume on chest x-ray. 9. History of schizoaffective disorder versus schizophrenia. 10. History of chronic noncompliance, history of multiple inpatient psychiatric hospitalizations, history of disorganized thinking, history of behavioral disorder, history of noncompliance with medication. 11. History of disorganized thought process. 12. Psychosis. 13. Schizoaffective depression. 14. Hypotension. 15. Mild normocytic anemia. 16. Transient granulocytosis. 17. Hypokalemia. 18. Transient transaminitis. 19. Hypovitaminosis D. 1. Suicide attempt. 2. Ambien and Ativan overdose. 3. Acute exacerbation of depression and anxiety. 4. Constricted affect. 5. Rhabdomyolysis. 6. Delusional disorder with paranoia, history of noncompliance. 7. Acute exacerbation of schizoaffective disorder. 8. Paranoid behavior, delusion and disorganized thought disorder with violent behavior. 9. History of multiple psychiatric hospitalization. 10. Schizoaffective disorder, depressed type. 11. Mild normocytic anemia, probably dilutional with transient granulocytosis. 12. Hypokalemia. 13. Hypovitaminosis D. 14. Transaminitis (resolved). 1. Suicide attempt. 2. Ativan and Ambien drug overdose. 3. Acute exacerbation of depression, schizophrenia, schizoaffective disorder. 4. History of bipolar disorder. 5. Granulocytosis. 6. Mild transaminitis. 7. Rhabdomyolysis, slow resolving. 8. Rhabdomyolysis with elevated CPK. 9. History of poor compliance. 10. History of schizophrenia, schizoaffective disorder with paranoid disorder and bipolar disorder. 11. History of anxiety disorder, history of impulse control disorder, history of borderline paranoid personality disorder, history of psychosis, hallucinations, paranoia, history of anxiety, depression, history of behavioral disorder with aggressive and violent behavior. History of nicotine, alcohol and marijuana use and abuse. 1. Questionable and possible acute exacerbation of schizoaffective disorder, bipolar-type disorder. 2. Suicide attempt with drug overdose of thirty tablets of Ativan 2 mg and thirty tablets of Ambien 10 mg. 3. Acute exacerbation of depression. 4. Suicide attempt. 5. Acute exacerbation of schizoaffective disorder and bipolar disorder. 6. History of psychosis. 7. Granulocytosis. 8. Transaminitis with elevated AST. 9. Rhabdomyolysis with elevated CPK. 10. History of poor compliance. 11. History of multiple psychiatric inpatient hospitalizations with history of schizoaffective disorder, history of schizophrenia, history of bipolar disorder with psychosis, history of poor compliance. PLAN: At this time, the patient was seen by Psychiatry, by Dr. Vasquez and Dr. Aggarwal. The patient has been recommended inpatient psych treatment. The patient's psychiatrist has also not cleared the patient psychiatrically for discharge. Psychiatric recommendation is that the patient needs to be hospitalized inpatient Psych Unit voluntarily and if the patient refuses to sign in voluntarily, then involuntary admission will be brought in for the patient's possible involuntary hospitalization to Psych Unit. The patient has been repeated labs, CMP, CPK, LFT, magnesium in a.m. Current followup is with Psychiatry. CURRENT MEDICATIONS: Depakote ER 1000 mg at bedtime, Desyrel 50 mg at bedtime, Drisdol 50,000 units weekly, heparin 5000 subcu every 8, Lidoderm 5% patch to the affected area, Paxil 10 mg daily, Protonix 40 mg daily, Seroquel 200 mg at bedtime. The patient is to be continued on the IV fluid 0.9 normal saline at 250 mL an hour till complete resolution of rhabdomyolysis; so, we can clear the patient for transfer to Psychiatry. The patient's mother was explained about the patient's clinical condition, diagnostic test results and recommendation by Psychiatry, which she acknowledged understand. The patient's mother after I spoke to her yesterday seems to be in agreement for the patient's admission to the inpatient Psych Unit, which will be discussed by the psychiatrist on the case with the patient's mother and to the patient. Dictated and electronically signed, not read. Ti Medina MD [facility]
[2018-04-16] MEDS: Pantoprazole 40 mg EC Tab PO SCH (05:08)
[2018-04-16 07:44] LABS: ALB/GLOB RATIO 1.2 (1.1-1.8); ALBUMIN 3.3 g/dL (3.0-4.8); ALT/SGPT 18 U/L (7-56); AST/SGOT 33 U/L (17-59); BLOOD UREA NITROGEN 8 mg/dL (7-21); CALCIUM 8.5 mg/dL (8.4-10.5); GFR AFRICAN-AMERICAN > 60; GFR NON-AFRICAN AMERICAN > 60
[2018-04-16 07:57] VITALS: BP 114/82; PULSE 83; RESP 18; TEMP 98.2; O2SAT 100
[2018-04-16 08:07] LABS: CK-MB 0.6 ng/mL (0.0-3.6)
[2018-04-16] MEDS ORDERED: Potassium Chloride 20 mEq ER Tab PO ONE (08:42)
[2018-04-16] MEDS ORDERED: Sodium Chloride 0.9% 1,000 ML IV SCH (08:45)
[2018-04-16] MEDS: Lidocaine 5% Patch TD SCH (10:22)
--- NOTE | 2018-04-16 13:06 | CP.PCM.PN ---
<Aleyda Olson - Last Filed: 04/16/18 13:08> Subjective - Date & Time of Evaluation Date of Evaluation: 04/16/18 Time of Evaluation: 13:04 - Subjective Subjective: Medicine Progress Note - Dr Medina Service: Patient seen and examined at bedside. Per nursing no acute events overnight. Patient is doing well, offers no complaints at this time. Ambulating and tolerating diet. Denies headaches, dizziness, cp, palpitations, sob, abdominal pain, urinary symptoms. Denies suicidal/homicidal ideation, auditory/visual hallucinations. Objective - Vital Signs/Intake and Output Vital Signs (last 24 hours): Temp Pulse Resp BP Pulse Ox 98.2 F 83 18 114/82 100 04/16/18 07:56 04/16/18 07:56 04/16/18 07:56 04/16/18 07:56 04/16/18 07:56 Intake and Output: 04/16/18 04/16/18 06:59 18:59 Intake Total 660 Balance 660 - Medications Medications: Current Medications Divalproex Sodium (Depakote Er(Once Daily)) 1,000 mg PO HS [facility] PRN Reason: Protocol Last Admin: 04/15/18 22:27 Dose: 1,000 mg Ergocalciferol (Drisdol 50,000 Intl Units Cap) 1 cap PO Q7D [facility] Last Admin: 04/14/18 13:08 Dose: 1 cap Heparin Sodium (Porcine) (Heparin) 5,000 units SC Q8 [facility] PRN Reason: Protocol Last Admin: 04/16/18 05:09 Dose: Not Given Sodium Chloride (Sodium Chloride 0.9%) 1,000 mls @ 250 mls/hr IV .Q4H [facility] Stop: 04/17/18 04:44 Lidocaine (Lidoderm) 1 ea TD DAILY [facility] Last Admin: 04/16/18 10:22 Dose: Not Given Pantoprazole Sodium (Protonix Ec Tab) 40 mg PO 0600,1600 [facility] Last Admin: 04/16/18 05:08 Dose: 40 mg Paroxetine HCl (Paxil) 10 mg PO DAILY [facility] Last Admin: 04/16/18 09:02 Dose: 10 mg Quetiapine Fumarate (Seroquel) 200 mg PO HS [facility] PRN Reason: Protocol Last Admin: 04/15/18 22:31 Dose: 200 mg Trazodone HCl (Desyrel) 50 mg PO HS [facility] Last Admin: 04/15/18 22:29 Dose: 50 mg - Labs Labs: 04/15/18 05:30 04/16/18 05:30 PT 11.7 SECONDS (9.4-12.5) 04/12/18 21:10 INR 1.03 (0.93-1.08) 04/12/18 21:10 APTT 28.5 Seconds (25.1-36.5) 04/12/18 21:10 - Constitutional Appears: Well, No Acute Distress - Head Exam Head Exam: ATRAUMATIC, NORMAL INSPECTION, NORMOCEPHALIC - Eye Exam Eye Exam: EOMI, Normal appearance Pupil Exam: NORMAL ACCOMODATION - ENT Exam ENT Exam: Mucous Membranes Moist - Neck Exam Neck Exam: Full ROM - Respiratory Exam Respiratory Exam: Clear to Ausculation Bilateral, NORMAL BREATHING PATTERN. absent: Rales, Rhonchi, Wheezes - Cardiovascular Exam Cardiovascular Exam: REGULAR RHYTHM, +S1, +S2 - GI/Abdominal Exam GI & Abdominal Exam: Soft, Normal Bowel Sounds. absent: Firm, Guarding, Rigid, Tenderness, Hyperactive Bowel Sounds, Rebound - Extremities Exam Extremities Exam: Normal Inspection - Back Exam Back Exam: NORMAL INSPECTION - Neurological Exam Neurological Exam: Alert, Awake, CN II-XII Intact, Normal Gait, Oriented x3 - Psychiatric Exam Psychiatric exam: Anxious, Flat Affect, Normal Mood. absent: Homicidal Ideation , Suicidal Ideation - Skin Skin Exam: Dry, Normal Color, Warm Assessment and Plan - Assessment and Plan (Free Text) Assessment: A/P: 27 year old male with past medical history of schizoaffective disorder, bipolar disorder presented after first suicide attempt where he took 30 tablets of ambien and 30 tablets of ativan, patient also found to have rhabdomyolysis with CPK of 5467 on admission -Stable, afebrile -Continue IV fluid hydration -Monitor CPK levels until normalizes, today CPK 301 -UTOX negative, valproic acid 38 on admission -Continue Depakote 1000mg PO HS, Seroquel 200mg PO HS, Paxil 10mg PO daily, Trazodone 50mg PO HS -Hypokalemia: potassium repleted -Continue 1:1 sitter, Seizure precautions -Psych on consult, help appreciated -Hip X ray: no acute fractures -Lidoderm patch for pain -Activity: OOB to chair -Physical therapy/Occupational therapy ordered -Vitamin D Deficiency - continue ergocalciferol 1tab PO Q7D -GI/DVT ppx: Protonix 40mg PO BID, Heparin 5000 units Q8H -Will likely transfer to psych tomorrow -Plan discussed with Dr Carol Olson DO PGY-1 <Ti Medina U - Last Filed: 04/16/18 17:13> Objective - Vital Signs/Intake and Output Vital Signs (last 24 hours): Temp Pulse Resp BP Pulse Ox 98.2 F 83 18 114/82 100 04/16/18 07:56 04/16/18 07:56 04/16/18 07:56 04/16/18 07:56 04/16/18 07:56 Intake and Output: 04/16/18 04/16/18 06:59 18:59 Intake Total 660 Balance 660 - Labs Labs: 04/15/18 05:30 04/16/18 05:30 PT 11.7 SECONDS (9.4-12.5) 04/12/18 21:10 INR 1.03 (0.93-1.08) 04/12/18 21:10 APTT 28.5 Seconds (25.1-36.5) 04/12/18 21:10 Attending/Attestation - Attestation I have personally seen and examined this patient.: Yes I have fully participated in the care of the patient.: Yes I have reviewed all pertinent clinical information, including history, physical exam and plan: Yes Notes (Text): Please see/read my dictated notes.
[2018-04-16 22:21] LABS: GLYCOMARK(R) 19.2 mcg/mL (7.3-36.6)
--- NOTE | 2018-04-17 16:46 | DS ---
FINAL PROGRESS NOTE AND DISCHARGE SUMMARY SUBJECTIVE: The patient was admitted to telemetry, then transferred to during this hospitalization. The patient was seen in room 362, bed 1. The patient is awake, responsive, alert. Overnight nurse's notes were reviewed. There was no adverse events documented. There was no auditory or visual hallucination documented. The patient was kept on one-to-one. The patient stayed on one-to-one observation. PHYSICAL EXAMINATION VITAL SIGNS: The patient's overnight vital signs were noted. T-max 98. Heart rate 63, 68, 83. Blood pressure 123/79, 114/82. Respiration 18, O2 sat 100%. GENERAL: The patient is seen. The patient was made to sit up from the lying position and then made to stand up. The patient is alert, awake, oriented x3. HEAD: Normocephalic, atraumatic. EENT: Shows pink conjunctivae. Anicteric sclerae. No oropharyngeal lesion. No neck rigidity. CHEST: Kyphosis. LUNGS: Shows no rales, crackles or wheezing. CARDIOVASCULAR: S1, S2, regular rhythm. ABDOMEN: Soft. Positive bowel sounds. No hepatosplenomegaly noted. No guarding, no rigidity, no rebound tenderness. GENITALIA: Male. RECTAL: Deferred. EXTREMITY: Shows no pitting edema, no calf tenderness, no Homans' sign. NEUROLOGIC: The patient is alert, awake, oriented x3. Cranial nerves II-XII grossly intact. No nystagmus noted. Motor strength is 5/5 in upper and lower extremity. Gait examination is intact. DIAGNOSTICS: 04/16, abnormal diagnostics, potassium of 3.5, CPK has come down to 301 from 5467. LFTs are normal. The patient was seen by psychiatrist. The patient was evaluated by psychiatrist today. The patient was seen by Dr. Aggarwal from Psychiatry. Case discussed with the psychiatrist. The patient was willing to sign . The patient will be medically cleared later on. FINAL IMPRESSION, PLAN AND DISCHARGE DIAGNOSES: 1. Suicide attempt. 2. Ambien and Ativan drug overdose. 3. Schizoaffective disorder versus schizophrenia. 4. Hypokalemia. 5. Rhabdomyolysis. 6. Mild normocytic anemia. 7. Transient granulocytosis. 8. Hypovitaminosis D. 9. Physiological globus pallidus bilateral calcification. 10. Bilateral maxillary sinus mucosal thickening and mucous retention cyst or left maxillary sinus polyp. 11. Bilateral ethmoid air cell thickening and effusion. 12. Frontal and sphenoid sinus mucosal thickening. 13. Paranasal sinus disease. 14. Decreased inspiratory pulmonary volume on chest x-ray. 15. History of chronic compliance, history of schizoaffective disorder versus schizophrenia. 16. History of bipolar disorder. Plan at this time, the patient has been ordered potassium supplementation. The patient has been ordered potassium riders. The patient will be continued on IV fluid 250 mL/hour 0.9 normal saline. Then, the patient is ready to be transferred to Psychiatry. The patient is ordered presently on Depakote 1000 mg at bedtime, Drisdol 50,000 weekly, heparin 5000 subcu every 8 hours for DVT prophylaxis, Lidoderm 5% patch to the affected area, Protonix 40 mg daily, Paxil 10 mg daily, Seroquel 200 mg at bedtime, Desyrel or trazodone 50 mg at bedtime. At present, the patient is medically cleared for discharge and transfer to Psychiatry. As per Psychiatry, the patient is agreeable voluntary to sign into Psychiatry admission. Time spent in the entire discharge process more than 45 minutes. Dictated and electronically signed, not read. Ti Medina MD
== END 2018-04-16 15:19 | DRG 918 ==
LOC: ED 18:03 → ERH 20:53 → 2RSO 22:50 → OBSVTOIN 04-13 15:05 → 3RNO 04-14 15:52
PROVIDERS: ADMIT Internal Medicine; ATTEND Internal Medicine
DX: T42.4X2A Poisoning by benzodiazepines, intentional self-harm, initial encounter (principal); T42.6X2A Poisoning by other antiepileptic and sedative-hypnotic drugs, intentional self-harm, initial encounter; M62.82 Rhabdomyolysis; F25.1 Schizoaffective disorder, depressive type; F31.9 Bipolar disorder, unspecified; E55.9 Vitamin D deficiency, unspecified; E87.6 Hypokalemia; D64.9 Anemia, unspecified; E78.5 Hyperlipidemia, unspecified; R74.8 Abnormal levels of other serum enzymes; Z91.19 Patient's noncompliance with other medical treatment and regimen; Z91.14 Patient's other noncompliance with medication regimen; Z91.5 Personal history of self-harm

== ENCOUNTER 2018-04-16 15:10 | Inpatient (IN) | payer BC, OTHER ==
[2018-04-16] MEDS ORDERED: Magnesium Hydroxide Susp 30 ml UD PO PRN (15:47)
[2018-04-16] MEDS ORDERED: Alum-Mag Hydrox-Simethicone Susp (30 mL) PO PRN (15:48)
--- NOTE | 2018-04-16 16:19 | PCM.PSYCH ---
Initial Psychiatric Evaluation - Initial Psychiatric Evaluation Type of Admission: Voluntary Legal Status: Capacity (patient has capacity to sign consent for treatment) Chief Complaint (in patient's own words): "nothing is wrong, murrell-murrell, I was very depressed, murrell-murrell, I tried to kill myself, but I am okay though" Patient's Reaction to Hospitalization: patient was transferred from medical side where he was admitted status post suicidal attempt on Ativan and Ambien, please see Dr. Vasquez consultation note for more detailed information. Patient requires further evaluation and stabilization and medication management. History of Present Illness and Precipitating Events: Shortly pt is 27yo male with long h/o mental illness, most likely schizoaffective disorder, multiple admissions in the past, h/o chronic noncompliance with medications and follow up appointments, recent state hospitalization at [facility] for 4 months, pt was discharged with the PACT team follow up, but pt refused to be participating in d/c plan, was refusing to follow up with PACT, was decreasing dose of Depakote himself, pt was noncompliant with meds as it was prescribed, as a result pt became depressed , tried to overdosed on benzos and ambien, pt was admitted to ICU initially, pt was on 1:1 on the medical site, pt was seen by over the weekend, this sheet writer took over and follow up on pt yesterday and today, pt was willing to be admitted and get treatment, but pt knows the system, most likely pt does not want to be admitted to [facility] involuntary and that is why pt chose to sign himself to the hospital. patient requires further evaluation and stabilization, medications adjustment. Patient was seen and examined today, patient presented with acceptable personal hygiene but seems to be careless about his appearance, patient has good ADLs. Patient presented to be disorganized, giggling inappropriately, superficially corporative, patient has no insight into his mental illness, this sheet writer attempted to discuss possible medications, and possible injectable form of antipsychotic medication but patient refused to be on injectable form reporting that "injection gives me hallucinations", it is incorrect by definition, antipsychotic medications are helping with psychosis but not giving psychotic symptoms, pt was not able to understand that. pt presented to be completely psychotic, was laughing inappropriately, was not able to participate in interview due to his severe thought blocking,disorganized thoughts, as well as behavior. Patient is poor and unreliable historian, due to severe psychosis. pt gave consent for collaterals from mother, will call for collaterals. [facility] [place], med list in the chart pt is a heavy smoker, counseling provided, pt smokes about 1pack a day, nicotine patch offered. Past psychiatric h/o: multiple admissions, most recent was at [facility] where pt staid for 4months, pt was released with PACT team f/u, but pt was noncompliant, [facility] multiple admissions, chronic noncompliant with meds and f/ u appts. Two admissions in [facility] and four admissions in [facility], [facility] , [facility]. Pt has h/o using drugs, h/o alcohol consumption, but not this time. Medical h/o: pt reported being healthy, was seen by medical team. Social h/o: pt lives with his father and mother, does not work. Family h/o: none (as per record) Current Medications: Active Medications Generic Name Dose Route Start Last Admin Trade Name Freq PRN Reason Stop Dose Admin Acetaminophen 650 mg 04/16/18 15:46 Tylenol 325mg Tab PO Q6H PRN Pain, moderate (4-7) Al Hydrox/Mg Hydrox/Simethicone 30 ml 04/16/18 15:48 Maalox Plus 30 Ml PO DAILY PRN Indigestion / Heartburn Divalproex Sodium 1,000 mg 04/16/18 22:00 Depakote Er(Once Daily) PO HS [facility] Protocol Ergocalciferol 1 cap 04/16/18 15:45 Drisdol 50,000 Intl Units Cap PO Q7D NEREIDA Magnesium Hydroxide 30 ml 04/16/18 15:47 Milk Of Magnesia PO DAILY PRN Constipation Pantoprazole Sodium 40 mg 04/16/18 16:00 Protonix Ec Tab PO 0600,1600 NEREIDA Paroxetine HCl 10 mg 04/17/18 08:00 Paxil PO DAILY NEREIDA Quetiapine Fumarate 200 mg 04/16/18 22:00 Seroquel PO HS NEREIDA Protocol Trazodone HCl 50 mg 04/16/18 22:00 Desyrel PO HS NEREIDA Past Psychiatric History - Past Psychiatric History Previous Treatment History: Inpatient Prior Professional Help: see HPI Prior Psychiatric Treatment: see HPI At what hospital: see HPI Duration: see HPI Nature of Treatment: see HPI Explanation of prior treatment: see HPI History of Abuse: see HPI History of ETOH/Drug Use: see HPI History of Family Illness: see HPI Pertinent Medical Hx (Current Medical&Sleep Prob, Allergies): Allergies Allergy/AdvReac Type Severity Reaction Status Date / Time No Known Allergies Allergy Verified 07/12/17 12:54 Divalproex [Depakote ER] 500 mg PO HS 07/12/17 QUEtiapine [SEROquel] 400 mg PO HS 07/12/17 traZODone [Desyrel] 300 mg PO HS 07/12/17 Doxylamine Succinate [Unisom] 10 mg PO HS 04/12/18 LORazepam [Ativan] 2 mg PO DAILY 04/12/18 Melatonin [Melatin 3 mg-1 mg] 10 mg PO HS 04/12/18 Zolpidem [Ambien] 10 mg PO HS 04/12/18 Review of Systems - Review of Systems Systems not reviewed;Unavailable: Acuity of Condition - EENT Eyes: As Per HPI Ears: As Per HPI Nose/Mouth/Throat: As Per HPI - Cardiovascular Cardiovascular: As Per HPI - Respiratory Respiratory: As Per HPI - Gastrointestinal Gastrointestinal: As Per HPI - Genitourinary Genitourinary: As Per HPI - Reproductive: Male Reproductive:Male: As Per HPI - Musculoskeletal Musculoskeletal: As Par HPI - Integumentary Integumentary: As Per HPI - Neurological Neurological: As Per HPI - Psychiatric Psychiatric: As Per HPI - Endocrine Endocrine: As Per HPI - Hematologic/Lymphatic Hematologic: As Per HPI Mental Status Examination - Personal Presentation Personal Presentation: Looks stated age - Affect Affect: Other (nappropriate, patient was giggling while talking about suicide) - Motor Activity Motor Activity: Psychomotor Retardation - Reliability in Providing Information Reliability in Providing Information: Poor, due to alteration in thoughts, Poor , due to cognitve impairment - Speech Speech: Disorganized, Irrelevant - Mood Mood: Depressed - Formal Thought Process Formal Thought Process: Hallucinations, Delusions, Paranoia, Loosening of associations, Circumstantial - Hallucinations/Delusions Hallucinations: Auditory Delusions: Persecution - Obsessions/Compulsions Obsessions: None Compulsions: None - Cognitive Functions Orientation: Person, Place Sensorium: Alert Attention/Concentration: Easily distracted Abstract Thinking: [place] Estimate of Intelligence: Below average Judgement: Intact, as evidence by: Insight regarding need for hospitalization - Risk Risk: Suicidal, Self-mutilation, Diminished functioning - Strength & Assets Inventory Strength & Assets Inventory: Family support, Cooperative - Limitations Limitations: Other (poor insight into his mental illness, chronic noncompliance with the medications and follow up appointments) DSM 5 DX - DSM 5 DSM 5 Diagnosis: schizoaffective disorder - Recommended/Plan of Treatment Treatment Recommendations and Plan of Treatment: Milieu/structure/supportive therapy Medical consult f/u will be called SW consultation for discharge plan and social issues Divalproex 1000 mg PO HS for mood stabilization QUEtiapine [SEROquel] 200 mg PO HS or psychosis traZODone [Desyrel] 50 mg PO HS for insomnia and depression Paxil 10 mg at the nighttime for depression and anxiety Med management Family involvement Follow up on labs Will monitor closely Pt was educated about risk/benefits and alternatives of medications, coping strategies (safety plan, suicide prevention), relapse prevention, importance of follow up with psychiatrist and therapist, stay away from drugs/alcohol/smoking Projected ELOS: 10 days Prognosis: guarded Discharge Plan and Discharge Criteria: Pt will be not depressed or manic, will be more hopeful, will be not psychotic or anxious, will be not having thoughts of harming self or others, will be tolerating medications well, will not have major side effects, will be able to function, will not pose threat to self or others. - Smoking Cessation Smoking Cessation Initiated: No Reason for not providing: pt does not want to
--- NOTE | 2018-04-16 16:52 | PCM.BM ---
<Jazmyne Garcia - Last Filed: 04/16/18 16:49> Treatment Plan Problems - Problems identified on initial assessmt HIGH RISK: SUCIDE Date Initiated: 04/16/18 Time Initiated: 16:50 Assessment reference: NA Status: Active HOPELESNESS/HELPLESNESS Date Initiated: 04/16/18 Time Initiated: 16:51 Assessment reference: NA Status: Active FEELING WORTHLESSNESS Date Initiated: 04/16/18 Time Initiated: 16:52 Assessment reference: NA Status: Active INEFFECTIVE COPING Date Initiated: 04/16/18 Time Initiated: 16:53 Assessment reference: NA Status: Active Treatment assets and liabiliti Patient Assests: adapts well, cooperative, ADL independent, good support system , negotiates basic needs Patient Liabilities: auditory impairment - Milieu Protocol Maintain good personal hygiene: every shift Encourage regular showers, every shift Remind patient to perform daily oral care, every shift Assist patient to perform ADL's Conduct patient checks and document Observation sheet: Q15 minutes Maintain personal safety: every shift Educate patient to report safety concerns to staff, every shift Monitor environment for contraband/sharps Medication safety: Monitor for expected outcome, potential side effects: every shift, Assess barriers to learning: every shift, Assess readiness for medication education: every shift Milieu Narrative: Milieu/structure/supportive therapy Medical consult f/u will be called consultation for discharge plan and social issues Divalproex 1000 mg PO HS for mood stabilization QUEtiapine [SEROquel] 200 mg PO HS or psychosis traZODone [Desyrel] 50 mg PO HS for insomnia and depression Paxil 10 mg at the nighttime for depression and anxiety Med management Family involvement Follow up on labs Will monitor closely Pt was educated about risk/benefits and alternatives of medications, coping strategies (safety plan, suicide prevention), relapse prevention, importance of follow up with psychiatrist and therapist, stay away from drugs/alcohol/smoking Discharge/Continuing Care - Education Needs Education Needs: Patient Medication, Patient Diagnosis/Disease Process, Patient Coping Skills, Patient Activities of Daily Living, Patient Personal Hygiene/ Grooming, Patient Aftercare Safety Plan - Discharge Discharge Criteria: Tolerates medication w/o severe side effects, Free of Suicidal thoughts, Normal sleep pattern, Ability to care for self - Treatment Team Participation Patient/Family/SO Statement: Milieu/structure/supportive therapy Medical consult f/u will be called consultation for discharge plan and social issues Divalproex 1000 mg PO HS for mood stabilization QUEtiapine [SEROquel] 200 mg PO HS or psychosis traZODone [Desyrel] 50 mg PO HS for insomnia and depression Paxil 10 mg at the nighttime for depression and anxiety Med management Family involvement Follow up on labs Will monitor closely Pt was educated about risk/benefits and alternatives of medications, coping strategies (safety plan, suicide prevention), relapse prevention, importance of follow up with psychiatrist and therapist, stay away from drugs/alcohol/smoking <Charissa Aggarwal - Last Filed: 04/17/18 09:26> - Diagnosis (1) Schizophrenia Status: Acute Interventions: 04/17/18 09:26 Psychoeducation/psychotherapy Psychopharmacology/adjustment of medications as needed/ monitoring possible side effects Evaluate pt on daily basis Compliance with medications and follow up appointments Long acting medication if pt is noncompliant with pill form Suicide and homicide risk assessment and prevention, coping strategies, safety plan Relapse prevention Reduction of symptoms Improve functional status Possible assertive community treatment Cognitive behavioral therapy Family involvement Possible social skill training as outpatient <Hanh Roberts - Last Filed: 04/17/18 14:33> Family Contact Family involvement: Family/SO is involved Family contact: Patient agrees to contact Family contact name: Kiran Gunter(father) Ellen Nguyen(mother) Family contacted how many times per week?: 2 - Goals for Treatment Patient goals for treatment: "to feel better." <Jocelynn Singh - Last Filed: 04/17/18 15:23>
[2018-04-16] MEDS: Ergocalciferol 50,000 Intl Units Cap PO SCH (17:50)
[2018-04-16] MEDS: Pantoprazole 40 mg EC Tab PO SCH (17:50)
[2018-04-16] MEDS: Divalproex 500 mg ER (ONCE DAILY formulation) PO SCH (21:01)
[2018-04-17] MEDS: Pantoprazole 40 mg EC Tab PO SCH ×2 (09:02→17:28)
--- NOTE | 2018-04-17 15:27 | PCM.PYCHPN ---
Psychiatric Progress Note - Psychiatric Progress Note Patient seen today, length of contact: 30min Patient Chief Complaint: "I was not able to take the pain anymore, I wanted to end up my life, I was thinking to walk into the traffic, but it is so brutal, then I went to the [place] and stolen the rope, tried to hang myself, but I thought I cannot do it, then I went to 's office told him that I am in pain, and restless, he gave me ativan and ambien, then I went back home, told my parents that I want to go to sleep, I took all of the ambien and ativan, then I went back to the basement, I put a plastic bag around my had, I wanted to suffocate myself, but my heart was pounding, I was not able to sleep with the plastic bag on, I took it off, then fell asleep, at the morning my mother called 911 because I was out of it..., now CARCAMO-CARCAMO I feel great..., I want go go to the program..." Problems Identified/Issues Discussed: Suicide/ homicide prevention, past psychiatric h/o, current psychiatric symptoms , medical problems, risk/benefits and alternatives of medications, medications compliance, coping strategies, substance abuse h/o, relapse prevention, importance of follow up with psychiatrist and therapist, discharge plan. Medical Problems: pt is s/p OD on ambien and ativan Diagnostic Results: Vital Signs Temp Pulse Pulse Resp BP 04/17/18 07:11 97.7 F 69 20 100/55 L 04/16/18 15:52 78 17 DSM 5 Symptoms Update: Shortly pt is 27yo male with long h/o mental illness, most likely schizoaffective disorder, multiple admissions in the past, h/o chronic noncompliance with medications and follow up appointments, recent state hospitalization at [facility] for 4 months, pt was discharged with the PACT team follow up, but pt refused to be participating in d/c plan, was refusing to follow up with PACT, was decreasing dose of Depakote himself, pt was noncompliant with meds as it was prescribed, as a result pt became depressed , tried to overdosed on benzos and ambien, pt was admitted to ICU initially, pt was on 1:1 on the medical site, pt was seen by over the weekend, this functional tester typewriters took over and follow up on pt yesterday and today, pt was willing to be admitted and get treatment, but pt knows the system, most likely pt does not want to be admitted to [facility] involuntary and that is why pt chose to sign himself to the hospital. patient requires further evaluation and stabilization, medications adjustment. Patient was seen and examined today, patient presented with acceptable personal hygiene but seems to be careless about his appearance, patient has good ADLs. Patient presented to be disorganized, giggling inappropriately, especially when was describing his [id number] suicidal attempts for the 24hrs prior of coming to the hospital. on April 11, pt was not feeling good, then he went to [facility], stole the rope, tried to hang self in the garage, but "I understand that it is not going to happened, I was too scared", pt then hide the rope, when to his psychiatrist who prescribed pt ambien and ativan one month supply, pt filled it and went back home, OD at 9pm on ambien and ativan (all pills), took his regular meds as perscribed, then went to his basement apartment, tried to suffocate self with the plastic bag, but "I could not do it, my heart was pounding", then pt took off the bag, and fell asleep, till at am pt's mother found pt unconscious and called 911. pt said for the past two weeks he was thinking about multiple methods, but "I cannot walk in front of the traffic, I cannot cut myself because it is too brutal". pt denied h/o suicidal attempts, "but I thought about it", at the moment of the interview pt denied thoughts of harming self, feels "happy to be alive", but no remorse, pt seems to have very poor insight, pt was laughing inappropriately when was describing his three steps suicidal attempt. pt reports his father stated if he went to the hospital again, his apartment will be sold and pt will not be allowed to return back home. PT reports he told his family that he would rather than go back to [facility] or [facility]. pt presented to be disorganized, difficulties to stay focused, inappropriate affect, pressured speech. pt also has pillrolling tremor, will add cogentin. pt was educated about the invega and clozaril, pt chose to be on invega, this functional tester typewriters called to [facility] 3mg po bid. pt made it clear that he does not want to have IM medication. so far pt adjusting well to the unit, has some improvement with his insight to compare to the previous admissions, pt was irritable, no insight was refusing medications, this time "I will take what you feel might help me", pt also willing to go to IOP program. pt gave written consent for collaterals from mother, SW left a message, no call back yet. Impression: schizophrenia r/o schizoaffective disorder Medication Change: Yes (Invega 3mg po bid, cogentin) Medical Record Reviewed: Yes Consults ordered or reviewed: medical f/u as needed Mental Status Examination - Cognitive Function Orientation: Person, Place Memory: Impaired Attention: Poor Concentration: Poor Association: Loose Fund of Knowledge: Poor - Mood Mood: Depressed - Affect Affect: Other (nappropriate, patient was giggling while talking about suicide) - Formal Thought Process Formal Thought Process: Hallucinations, Delusions, Paranoia, Loosening of associations, Circumstantial, Other (disorganized thought process) - Suicidal Ideation Suicidal Ideation: No - Homicidal Ideation Homicidal Ideation: No Goal/Treatment Plan - Goal/Treatment Plan Need for Continued Stay: Remain at risks for inpatient hospitalization, Severe depression anxiety, Discharge may exacerbated symptoms, Failed transitioning, Severe functional impairment Progress Toward Problem(s) and Goals/Treatment Plan: Milieu/structure/supportive therapy Medical consult f/u will be called consultation for discharge plan and social issues Divalproex 1000 mg PO HS for mood stabilization QUEtiapine [SEROquel] 100 mg PO HS or psychosis traZODone [Desyrel] 50 mg PO HS for insomnia and depression Paxil d/c pt did not appear to be depressed invega 3mg po bid for psychosis Med management Family involvement Follow up on labs Will monitor closely Pt was educated about risk/benefits and alternatives of medications, coping strategies (safety plan, suicide prevention), relapse prevention, importance of follow up with psychiatrist and therapist, stay away from drugs/alcohol/smoking Estimated Date of D/C: 04/26/18
[2018-04-17] MEDS: PALIPERIDONE 3 MG PO SCH (17:29)
[2018-04-17] MEDS: Divalproex 500 mg ER (ONCE DAILY formulation) PO SCH (21:14)
[2018-04-18] MEDS: Pantoprazole 40 mg EC Tab PO SCH ×2 (06:10→16:11)
--- NOTE | 2018-04-18 08:00 | CON ---
[facility] [address] [place] [address] Health Information Management History and Physical Report : [id number] Draft [id number] Unit: [id number] : 1990 Loc: 515-1 Room/Bed: 515-1 Age/Sex: 27 / M ADM Status: DIS IN Copied To: Copied To Cosigner: Attending MD: Ti Medina MD HISTORY OF PRESENT ILLNESS: The patient is a 27-year-old male, who was brought to the [facility] emergency room by the [facility] after the patient was reported to have ingested thirty Ativan 2 mg tablets and Ambien 10 mg thirty tablets since last night at 09:00 p.m. The patient stated that he wanted to end his life because it was boring and wanted to go to sleep and not wake up. The patient was found by the family on the floor. 911 was called and according to the ER physician, the patient's family found the patient on the floor, 911 was called and the patient was brought to the emergency room for evaluation. In the emergency room, the patient was found to be arousable. The patient was found to be alert, awake, responsive by the ER physician. CODE STATUS: Full code. LIVING WILL ADVANCED DIRECTIVE: None. ALLERGIES: NONE. HEIGHT: 5 feet 7. BMI: 27. WEIGHT: 170. HOME MEDICATIONS: Seroquel 300 mg at bedtime, Unisom 10 mg at bedtime, Desyrel 300 mg at bedtime, Ambien 10 mg at bedtime, melatonin 10 mg at bedtime, Ativan 2 mg daily, Depakote 500 mg at bedtime. SOCIAL HISTORY: Positive for alcohol. Positive for marijuana. Positive for smoking. OCCUPATIONAL HISTORY: Not applicable. FAMILY HISTORY: Not available. 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 The patient's past medical history is significant for history of alcohol use, history of paranoid-type schizoaffective disorder, history of noncompliance with medication. The patient's past medical history is significant for multiple psychiatric hospitalizations and emergency room visits, paranoid disorder, schizophrenia, history of anxiety disorder, history of impulse control disorder, history of borderline personality disorder, history of paranoid personality disorder, history of psychosis, history of depression, manic symptoms, history of violent behavior, history of behavioral disorder. The patient is in the emergency room in bed #2. The patient was seen by the medical communication specialist in the emergency room. PHYSICAL EXAMINATION: GENERAL: The patient is arousable to verbal stimuli, though sleepy. VITAL SIGNS: T-max 98.5; pulse 84, 64; blood pressure 110/73, 119/68; respirations 16-20; O2 sat 100%. HEENT: The patient's head examination normocephalic, atraumatic. The patient does not appear to be in any distress. The patient is alert, awake, oriented x3. Pupils are reactive. Extraocular movements intact. No facial asymmetry. Dry oral mucosa. NECK: No neck rigidity. CHEST: Symmetrical. LUNGS: Shows no rales, crackles or wheezing. CARDIOVASCULAR: S1, S2, regular rhythm. ABDOMEN: Soft. Positive bowel sound. No hepatosplenomegaly noted. GENITALIA: Male. RECTAL: Deferred. EXTREMITY: Shows no pitting edema, no calf tenderness, no Homans' sign. NEUROLOGICAL: The patient is awake, responsive. Cranial nerves II through XII grossly intact. The patient is arousable to verbal stimuli. The patient is slightly sleepy. Speech is normal. Able to move upper and lower extremity without assistance. PSYCHIATRIC: The patient appears to be depressed with suicidal ideation, lethargic. DIAGNOSTIC: EKG shows sinus rhythm with some J-point elevation. CBC shows granulocytes of 72. PT/PTT is normal. Chemistry and LFT shows AST of 100, CPK is 5467. Urinalysis is negative. Urine drug screen is negative. Salicylate, acetaminophen level and alcohol level negative. Valproic acid is 38. Chest x-ray was done in the emergency room. Chest x-ray was reported negative. EKG shows sinus rhythm with some early repolarization changes. The patient was treated in the emergency room by with IV fluid hydration and the patient was admitted to telemetry. IMPRESSION AND PLAN: 1. Questionable and possible acute exacerbation of schizoaffective disorder, bipolar-type disorder. 2. Suicide attempt with drug overdose of thirty tablets of Ativan 2 mg and thirty tablets of Ambien 10 mg. 3. Acute exacerbation of depression. 4. Suicide attempt. 5. Acute exacerbation of schizoaffective disorder and bipolar disorder. 6. History of psychosis. 7. Granulocytosis. 8. Transaminitis with elevated AST. 9. Rhabdomyolysis with elevated CPK. 10. History of poor compliance. 11. History of multiple psychiatric inpatient hospitalizations with history of schizoaffective disorder, history of schizophrenia, history of bipolar disorder with psychosis, history of poor compliance. Plan at this time, the patient will be placed on telemetry observation. The patient has been ordered hepatitis panel, serial labs, serial CPK, troponin ordered. Human immunodeficiency virus ordered. Repeat CBC ordered. Consultation, Psychiatry ordered. The patient is started on deep venous thrombosis prophylaxis, gastrointestinal prophylaxis, IV fluid hydration has been ordered. The patient has been ordered one-to-one. CT head has been ordered. One-to-one sitter has been ordered. Neuro checks ordered. Seizure precautions, JD stockings, sequential compression devices ordered. At present, the patient's family was informed about the patient's condition in the ER. The patient needs to be admitted to the medical floor for management of rhabdomyolysis and then the patient will also be evaluated by Psychiatry and the patient's further management will be dependent upon the Psychiatry recommendation. The patient's psychiatric medications including Seroquel, Unisom, Desyrel, Ambien, Melatonin, Ativan, Depakote will be resumed at the discretion of the psychiatrist's evaluation. At this time, the patient's pending diagnostic data will be reviewed when available. DATE: 04/17/2018 HISTORY OF PRESENT ILLNESS: The patient is now transferred from acute medical floor. The patient was admitted from 04/13/2018 until 04/16/2018 for drug overdose and suicide attempt. The patient is now accepted and transferred to [address] [place] [address]. The patient was seen and examined in room 515 . The patient appears very happy, and the patient is smiling and talking. The patient denies any specific complaints. PHYSICAL EXAMINATION: VITAL SIGNS: T-max 97.7, pulse 69 to 77, blood pressure 100/55. Patient has been requesting to be discharged home, which I had asked the patient to discuss with Psychiatry. Respirations 20, O2 sat was 100%. HEENT: The patient's head examination is normocephalic, atraumatic. HEENT examination shows pink conjunctivae. Anicteric sclerae. No oropharyngeal lesion. No neck rigidity. CHEST: Symmetrical. LUNGS: Shows no rales, crackles or wheezing. CARDIOVASCULAR: S1 and S2, regular rhythm. ABDOMEN: Soft. Positive bowel sound. No hepatosplenomegaly noted. GENITALIA: Male. RECTAL: Examination is deferred. EXTREMITIES: Show no pitting, no calf tenderness, no Homans' sign. NEUROLOGIC: The patient is alert, awake and oriented x3. Cranial nerves II through XII intact. Gait examination is independent. VASCULAR: Palpable pulses. MUSCULOSKELETAL: Shows a body mass index of 25. IMPRESSION: 1. Suicide attempt. 2. Status post Ambien and Ativan overdose. 3. Most likely schizoaffective disorder. 4. History of multiple inpatient psychiatric hospitalizations. 5. Chronic noncompliance with medications and doctor's appointment. 6. History of depression. 7. Schizophrenia. 8. Schizoaffective disorder. 9. Depression. 10. Disorganized thought process. 1. Suicide attempt. 2. Ambien and Ativan drug overdose. 3. Schizoaffective disorder versus schizophrenia. 4. Hypokalemia. 5. Rhabdomyolysis. 6. Mild normocytic anemia. 7. Transient granulocytosis. 8. Hypovitaminosis D. 9. Physiological globus pallidus bilateral calcification. 10. Bilateral maxillary sinus mucosal thickening and mucous retention cyst or left maxillary sinus polyp. 11. Bilateral ethmoid air cell thickening and effusion. 12. Frontal and sphenoid sinus mucosal thickening. 13. Paranasal sinus disease. 14. Decreased inspiratory pulmonary volume on chest x-ray. 15. History of chronic compliance, history of schizoaffective disorder versus schizophrenia. 16. History of bipolar disorder. 1. Status post suicide attempt. 2. Status post Ambien and Ativan drug overdose. 3. Physiological globus pallidus bilateral calcification. 4. Bilaterally maxillary sinus mucosal thickening and mucros retention cyst or left maxillary sinus polyp. 5. Bilateral ethmoid air cell thickening and effusion. 6. Frontal and sphenoid sinus mucosal thickening. 7. Paranasal sinus disease. 8. Decreased inspiratory pulmonary volume on chest x-ray. 9. History of schizoaffective disorder versus schizophrenia. 10. History of chronic noncompliance, history of multiple inpatient psychiatric hospitalizations, history of disorganized thinking, history of behavioral disorder, history of noncompliance with medication. 11. History of disorganized thought process. 12. Psychosis. 13. Schizoaffective depression. 14. Hypotension. 15. Mild normocytic anemia. 16. Transient granulocytosis. 17. Hypokalemia. 18. Transient transaminitis. 19. Hypovitaminosis D. 1. Suicide attempt. 2. Ambien and Ativan overdose. 3. Acute exacerbation of depression and anxiety. 4. Constricted affect. 5. Rhabdomyolysis. 6. Delusional disorder with paranoia, history of noncompliance. 7. Acute exacerbation of schizoaffective disorder. 8. Paranoid behavior, delusion and disorganized thought disorder with violent behavior. 9. History of multiple psychiatric hospitalization. 10. Schizoaffective disorder, depressed type. 11. Mild normocytic anemia, probably dilutional with transient granulocytosis. 12. Hypokalemia. 13. Hypovitaminosis D. 14. Transaminitis (resolved). 1. Suicide attempt. 2. Ativan and Ambien drug overdose. 3. Acute exacerbation of depression, schizophrenia, schizoaffective disorder. 4. History of bipolar disorder. 5. Granulocytosis. 6. Mild transaminitis. 7. Rhabdomyolysis, slow resolving. 8. Rhabdomyolysis with elevated CPK. 9. History of poor compliance. 10. History of schizophrenia, schizoaffective disorder with paranoid disorder and bipolar disorder. 11. History of anxiety disorder, history of impulse control disorder, history of borderline paranoid personality disorder, history of psychosis, hallucinations, paranoia, history of anxiety, depression, history of behavioral disorder with aggressive and violent behavior. History of nicotine, alcohol and marijuana use and abuse. 1. Questionable and possible acute exacerbation of schizoaffective disorder, bipolar-type disorder. 2. Suicide attempt with drug overdose of thirty tablets of Ativan 2 mg and thirty tablets of Ambien 10 mg. 3. Acute exacerbation of depression. 4. Suicide attempt. 5. Acute exacerbation of schizoaffective disorder and bipolar disorder. 6. History of psychosis. 7. Granulocytosis. 8. Transaminitis with elevated AST. 9. Rhabdomyolysis with elevated CPK. 10. History of poor compliance. 11. History of multiple psychiatric inpatient hospitalizations with history of schizoaffective disorder, history of schizophrenia, history of bipolar disorder with psychosis, history of poor compliance. PLAN: At this time, the patient is admitted to Psychiatry. The patient is currently on following medications, Cogentin or benztropine 1 mg twice a day, Depakote 1000 mg at bedtime, trazodone 50 mg at bedtime, Drisdol 50,000 units weekly, Geodon 20 mg p.o. b.i.d. p.r.n. and Geodon 20 mg IM every 6 hours p.r.n., Invega 3 mg 1 tablet twice daily, the patient is on Maalox and milk of magnesia p.r.n., Protonix 40 mg once or twice a day, Seroquel 100 mg at bedtime, Tylenol 650 every 6 p.r.n. The patient is on regular diet. At present, the patient will be continued to be managed in Psychiatry until the patient is further stabilized and improved from psychiatric aspect. The patient otherwise medically is stable. The patient will need outpatient close followup. Dictated and electronically signed, not read. Ti Medina MD MTDSuki
[2018-04-18] MEDS: PALIPERIDONE 3 MG PO SCH ×2 (08:46→16:14)
--- NOTE | 2018-04-18 16:30 | PCM.PYCHPN ---
Psychiatric Progress Note - Psychiatric Progress Note Patient seen today, length of contact: 30min Patient Chief Complaint: "I am fine..." Problems Identified/Issues Discussed: Suicide/ homicide prevention, past psychiatric h/o, current psychiatric symptoms , medical problems, risk/benefits and alternatives of medications, medications compliance, coping strategies, substance abuse h/o, relapse prevention, importance of follow up with psychiatrist and therapist, discharge plan. Medical Problems: pt is s/p OD on ambien and ativan Diagnostic Results: Vital Signs Temp Pulse Pulse Resp BP 04/17/18 07:11 97.7 F 69 20 100/55 L 04/16/18 15:52 78 17 DSM 5 Symptoms Update: Shortly pt is 27yo male with long h/o mental illness, most likely schizoaffective disorder, multiple admissions in the past, h/o chronic noncompliance with medications and follow up appointments, recent state hospitalization at [facility] for 4 months, pt was discharged with the PACT team follow up, but pt refused to be participating in d/c plan, was refusing to follow up with PACT, was decreasing dose of Depakote himself, pt was noncompliant with meds as it was prescribed, as a result pt became depressed , tried to overdosed on benzos and ambien, pt was admitted to ICU initially, pt was on 1:1 on the medical site, pt was seen by over the weekend, this radio news writer took over and follow up on pt yesterday and today, pt was willing to be admitted and get treatment, but pt knows the system, most likely pt does not want to be admitted to [facility] involuntary and that is why pt chose to sign himself to the hospital. patient requires further evaluation and stabilization, medications adjustment. Patient was seen and examined today at the replaced by [facility] patient presented with acceptable personal hygiene but seems to be careless about his appearance, patient has good ADLs. pt asked about 48hr notice, pt was advised that he will be screened, pt said he is willing to continue his treatment t [facility]. pt c/o insomnia, trazodone will be increased, cogentin pt tolerated well, less UE tremor, pt also reported that he likes, invega PO. pt still disorganized, laughing inappropriately, poor insight, no remorse to his suicidal attempt. SW obtained collaterals from pt's parents, see notes. pt is welcomed back home, pt was doing relatively well after state hospitalization. Impression: schizophrenia r/o schizoaffective disorder Medication Change: Yes (Invega 3mg po bid, cogentin, seroquel decreased) Medical Record Reviewed: Yes Mental Status Examination - Cognitive Function Orientation: Person, Place Memory: Impaired Attention: Poor Concentration: Poor Association: Loose Fund of Knowledge: Poor - Mood Mood: Depressed - Affect Affect: Other (nappropriate, patient was giggling while talking about suicide) - Formal Thought Process Formal Thought Process: Hallucinations, Delusions, Paranoia, Loosening of associations, Circumstantial, Other (disorganized thought process) - Suicidal Ideation Suicidal Ideation: No - Homicidal Ideation Homicidal Ideation: No Goal/Treatment Plan - Goal/Treatment Plan Need for Continued Stay: Remain at risks for inpatient hospitalization, Severe depression anxiety, Discharge may exacerbated symptoms, Failed transitioning, Severe functional impairment Progress Toward Problem(s) and Goals/Treatment Plan: Milieu/structure/supportive therapy Medical consult f/u will be called consultation for discharge plan and social issues Divalproex 1000 mg PO HS for mood stabilization QUEtiapine [SEROquel] 50 mg PO HS or psychosis traZODone [Desyrel] 50 mg PO HS for insomnia and depression Paxil d/c pt did not appear to be depressed invega 3mg po bid for psychosis Med management Family involvement Follow up on labs Will monitor closely Pt was educated about risk/benefits and alternatives of medications, coping strategies (safety plan, suicide prevention), relapse prevention, importance of follow up with psychiatrist and therapist, stay away from drugs/alcohol/smoking Estimated Date of D/C: 04/26/18
[2018-04-18] MEDS: Divalproex 500 mg ER (ONCE DAILY formulation) PO SCH (21:27)
--- NOTE | 2018-04-19 02:43 | PN ---
DATE: 04/18/2018 SUBJECTIVE: The patient is still in room 515, bed 1. Overnight nurse's notes were reviewed. The patient denies any suicidal or homicidal ideation. Denied auditory or vision hallucination. The patient was found to be more anxious. Poor insight, poor judgment; but compliant with medication. The patient complained of poor concentration, poor sleep. This morning, the patient was seen by social work administrator. The patient was found also to be found in the activity room. OBJECTIVE: VITAL SIGNS: T-max 97.7, pulse 68, 69, 77, blood pressure 100/55, 113/72, respirations 20. GENERAL: The patient's physical examination appears to be unchanged. The patient is ambulating independently. HEENT: Head examination is normocephalic, atraumatic. HEENT examination shows pink conjunctivae, anicteric sclerae. No oropharyngeal lesion. No neck rigidity. CHEST: Examination symmetrical. LUNG: Clear lung chacon. CARDIOVASCULAR: S1, S2, regular rhythm. ABDOMEN: Soft. Positive bowel sounds. Negative abnormality. GENITALIA: Male. RECTAL: Examination deferred. EXTREMITIES: Shows no swelling, no edema, no calf tenderness, no Homans' sign. NEUROLOGIC: The patient is alert, awake, oriented x3. No auditory or visual hallucination. No suicidal or homicidal ideation. No deficit. MUSCULOSKELETAL: Appropriate. The patient is ambulating independently. ASSESSMENT: 1. Suicide attempt. 2. Status post Ambien and Ativan overdose. 3. Most likely schizoaffective disorder versus schizophrenia. 4. Chronic noncompliance with medications. 5. Disorganized thought process with loosening of association 6. Depressed mood. 1. Suicide attempt. 2. Status post Ambien and Ativan overdose. 3. Most likely schizoaffective disorder. 4. History of multiple inpatient psychiatric hospitalizations. 5. Chronic noncompliance with medications and doctor's appointment. 6. History of depression. 7. Schizophrenia. 8. Schizoaffective disorder. 9. Depression. 10. Disorganized thought process. 1. Suicide attempt. 2. Ambien and Ativan drug overdose. 3. Schizoaffective disorder versus schizophrenia. 4. Hypokalemia. 5. Rhabdomyolysis. 6. Mild normocytic anemia. 7. Transient granulocytosis. 8. Hypovitaminosis D. 9. Physiological globus pallidus bilateral calcification. 10. Bilateral maxillary sinus mucosal thickening and mucous retention cyst or left maxillary sinus polyp. 11. Bilateral ethmoid air cell thickening and effusion. 12. Frontal and sphenoid sinus mucosal thickening. 13. Paranasal sinus disease. 14. Decreased inspiratory pulmonary volume on chest x-ray. 15. History of chronic compliance, history of schizoaffective disorder versus schizophrenia. 16. History of bipolar disorder. 1. Status post suicide attempt. 2. Status post Ambien and Ativan drug overdose. 3. Physiological globus pallidus bilateral calcification. 4. Bilaterally maxillary sinus mucosal thickening and mucros retention cyst or left maxillary sinus polyp. 5. Bilateral ethmoid air cell thickening and effusion. 6. Frontal and sphenoid sinus mucosal thickening. 7. Paranasal sinus disease. 8. Decreased inspiratory pulmonary volume on chest x-ray. 9. History of schizoaffective disorder versus schizophrenia. 10. History of chronic noncompliance, history of multiple inpatient psychiatric hospitalizations, history of disorganized thinking, history of behavioral disorder, history of noncompliance with medication. 11. History of disorganized thought process. 12. Psychosis. 13. Schizoaffective depression. 14. Hypotension. 15. Mild normocytic anemia. 16. Transient granulocytosis. 17. Hypokalemia. 18. Transient transaminitis. 19. Hypovitaminosis D. 1. Suicide attempt. 2. Ambien and Ativan overdose. 3. Acute exacerbation of depression and anxiety. 4. Constricted affect. 5. Rhabdomyolysis. 6. Delusional disorder with paranoia, history of noncompliance. 7. Acute exacerbation of schizoaffective disorder. 8. Paranoid behavior, delusion and disorganized thought disorder with violent behavior. 9. History of multiple psychiatric hospitalization. 10. Schizoaffective disorder, depressed type. 11. Mild normocytic anemia, probably dilutional with transient granulocytosis. 12. Hypokalemia. 13. Hypovitaminosis D. 14. Transaminitis (resolved). 1. Suicide attempt. 2. Ativan and Ambien drug overdose. 3. Acute exacerbation of depression, schizophrenia, schizoaffective disorder. 4. History of bipolar disorder. 5. Granulocytosis. 6. Mild transaminitis. 7. Rhabdomyolysis, slow resolving. 8. Rhabdomyolysis with elevated CPK. 9. History of poor compliance. 10. History of schizophrenia, schizoaffective disorder with paranoid disorder and bipolar disorder. 11. History of anxiety disorder, history of impulse control disorder, history of borderline paranoid personality disorder, history of psychosis, hallucinations, paranoia, history of anxiety, depression, history of behavioral disorder with aggressive and violent behavior. History of nicotine, alcohol and marijuana use and abuse. 1. Questionable and possible acute exacerbation of schizoaffective disorder, bipolar-type disorder. 2. Suicide attempt with drug overdose of thirty tablets of Ativan 2 mg and thirty tablets of Ambien 10 mg. 3. Acute exacerbation of depression. 4. Suicide attempt. 5. Acute exacerbation of schizoaffective disorder and bipolar disorder. 6. History of psychosis. 7. Granulocytosis. 8. Transaminitis with elevated AST. 9. Rhabdomyolysis with elevated CPK. 10. History of poor compliance. 11. History of multiple psychiatric inpatient hospitalizations with history of schizoaffective disorder, history of schizophrenia, history of bipolar disorder with psychosis, history of poor compliance. PLAN: At this time, the patient is to be continued. The patient is medically stable at present and there is no active medical issues which the patient needs to be managed. The patient is to be purely treated by the psychiatry at this time. Current medications noted are Cogentin 1 mg twice a day, Depakote 1000 mg at bedtime, Desyrel 100 mg at bedtime, Drisdol 50,000 units weekly, Geodon 20 mg p.o. b.i.d. p.r.n., Geodon 20 mg IM every 6 hours p.r.n., Maalox and milk of magnesia p.r.n., nicotine patch 21 mg daily, Protonix 40 mg daily, Seroquel 50 mg at bedtime, Sonata 10 mg at bedtime p.r.n., Tylenol p.r.n. The patient is on regular diet. At present, medical service will sign off. Please reconsult p.r.n. if needed. Dictated and electronically signed, not read. Ti Medina MD MTDSuki
[2018-04-19] MEDS: Pantoprazole 40 mg EC Tab PO SCH ×2 (06:51→15:33)
[2018-04-19] MEDS: PALIPERIDONE 3 MG PO SCH (08:22)
--- NOTE | 2018-04-19 16:15 | PCM.PYCHPN ---
Psychiatric Progress Note - Psychiatric Progress Note Patient seen today, length of contact: 30min Patient Chief Complaint: "I am fine..., I like the new medication, it is not too strong or too weak" Problems Identified/Issues Discussed: Suicide/ homicide prevention, past psychiatric h/o, current psychiatric symptoms , medical problems, risk/benefits and alternatives of medications, medications compliance, coping strategies, substance abuse h/o, relapse prevention, importance of follow up with psychiatrist and therapist, discharge plan. Medical Problems: pt is s/p OD on ambien and ativan Diagnostic Results: Vital Signs Temp Pulse Pulse Resp BP 04/17/18 07:11 97.7 F 69 20 100/55 L 04/16/18 15:52 78 17 DSM 5 Symptoms Update: Shortly pt is 27yo male with long h/o mental illness, most likely schizoaffective disorder, multiple admissions in the past, h/o chronic noncompliance with medications and follow up appointments, recent state hospitalization at [facility] for 4 months, pt was discharged with the PACT team follow up, but pt refused to be participating in d/c plan, was refusing to follow up with PACT, was decreasing dose of Depakote himself, pt was noncompliant with meds as it was prescribed, as a result pt became depressed , tried to overdosed on benzos and ambien, pt was admitted to ICU initially, pt was on 1:1 on the medical site, pt was seen by over the weekend, this program writer took over and follow up on pt yesterday and today, pt was willing to be admitted and get treatment, but pt knows the system, most likely pt does not want to be admitted to [facility] involuntary and that is why pt chose to sign himself to the hospital. patient requires further evaluation and stabilization, medications adjustment. Patient was seen and examined today at the treatment team meeting room, acceptable personal hygiene but seems to be careless about his appearance, patient has good ADLs. pt reported "I like the new medication, it is not too strong or too weak...". pt agreed to increase Invega to 3mg am and 6mg hs, less UE tremor, pt also reported that he likes, invega PO. pt still disorganized, laughing inappropriately, poor insight, no remorse to his suicidal attempt. SW obtained collaterals from pt's parents, see notes. pt is welcomed back home, pt was doing relatively well after state hospitalization. Impression: schizophrenia r/o schizoaffective disorder Medication Change: Yes (Invega 3mg po am and 6mg pm hs, d/s seroquel, ambien, d/ c sonata) Medical Record Reviewed: Yes Consults ordered or reviewed: medical f/u as needed Mental Status Examination - Cognitive Function Orientation: Person, Place Memory: Impaired Attention: Poor Concentration: Poor Association: Loose Fund of Knowledge: Poor - Mood Mood: Depressed - Affect Affect: Other (nappropriate, patient was giggling while talking about suicide) - Formal Thought Process Formal Thought Process: Hallucinations, Delusions, Paranoia, Loosening of associations, Circumstantial, Other (disorganized thought process) - Suicidal Ideation Suicidal Ideation: No - Homicidal Ideation Homicidal Ideation: No Goal/Treatment Plan - Goal/Treatment Plan Need for Continued Stay: Remain at risks for inpatient hospitalization, Severe depression anxiety, Discharge may exacerbated symptoms, Failed transitioning, Severe functional impairment Progress Toward Problem(s) and Goals/Treatment Plan: Milieu/structure/supportive therapy Medical consult f/u will be called SW consultation for discharge plan and social issues Divalproex 1000 mg PO HS for mood stabilization QUEtiapine [SEROquel] 50 mg PO HS was discontinued traZODone [Desyrel] 50 mg PO HS for insomnia and depression Paxil d/c pt did not appear to be depressed invega 3mg po am and 6mg po hs with the plan to increase it on 6mg bid on Sunday , if pt agree Invega booker dang for sleep, sonata d/c Med management Family involvement Follow up on labs Will monitor closely Pt was educated about risk/benefits and alternatives of medications, coping strategies (safety plan, suicide prevention), relapse prevention, importance of follow up with psychiatrist and therapist, stay away from drugs/alcohol/smoking Estimated Date of D/C: 04/26/18
[2018-04-19] MEDS: PALIPERIDONE 6 MG PO SCH (21:41)
[2018-04-19] MEDS: Divalproex 500 mg ER (ONCE DAILY formulation) PO SCH (21:42)
[2018-04-19] MEDS ORDERED: Home Med 1 UNIT PO SCH (22:00)
[2018-04-20] MEDS: Pantoprazole 40 mg EC Tab PO SCH ×2 (05:32→16:49)
[2018-04-20] MEDS: PALIPERIDONE 3 MG PO SCH (08:34)
--- NOTE | 2018-04-20 10:38 | PCM.PYCHPN ---
Psychiatric Progress Note - Psychiatric Progress Note Patient seen today, length of contact: 25 min Problems Identified/Issues Discussed: Patient is 27yo male with long h/o mental illness, most likely schizoaffective disorder, multiple admissions in the past, h/o chronic noncompliance with medications and follow up appointments, recent state hospitalization at [facility] for 4 months, refusing to follow up with PACT, noncompliant with meds as they were prescribed, who was transferred to the psychiatric unit s /p treatment on the medical floor for overdosing on benzos and ambien. I reviewed recent notes and met with patient in the steen. I am familiar with patient from multiple prior admissions to this unit as well as my consultation with him last weekend on the medical floor. He is more alert, oriented and focused than our previous meetings. He doesnt appear to remember me though I met with him on 2 occasions during this admission. Grooming is fair and affect is flat, superficial and preoccupied. Responses are perfunctory and I doubt their credibility considering his incongruent affect. He tells me that he is doing better and that he is no longer depressed. Tolerating current medication changes and denies any new discomfort or pain. He denies issue with sleep though this account contradicts nursing notes. Patient received Ambien 5 mg at 9 :42 pm and Vistaril 50 mg prn at 11:30 pm last night. In addition another patient complained about his pacing all night. He was seen pacing on the unit this morning and generally appears restless and unhappy. Denies hallucinations or paranoid thoughts. Staff have noted that patient remains illogical in that he provides contradictory statements about his functioning and sleep. Generally isolative. He attends group with minimal participation. There have been no behavioral issues on the unit thus far. Diagnostic Results: schizophrenia r/o schizoaffective disorder Medication Change: Yes ( ambien increased to 10 mg HS PRN) Medical Record Reviewed: Yes Mental Status Examination - Cognitive Function Orientation: Person, Place Memory: Impaired Attention: Poor Concentration: Poor Association: Loose Fund of Knowledge: Poor - Mood Mood: Depressed - Affect Affect: Other (nappropriate, patient was giggling while talking about suicide) - Formal Thought Process Formal Thought Process: Hallucinations, Delusions, Paranoia, Loosening of associations, Circumstantial, Other (disorganized thought process) - Suicidal Ideation Suicidal Ideation: No - Homicidal Ideation Homicidal Ideation: No Goal/Treatment Plan - Goal/Treatment Plan Need for Continued Stay: Remain at risks for inpatient hospitalization, Severe depression anxiety, Discharge may exacerbated symptoms, Failed transitioning, Severe functional impairment Progress Toward Problem(s) and Goals/Treatment Plan: * c/w current tx and plan * Ambien increased to 10 mg HS prn on 04/20/18 * No new weekend labs thus far * Vitals reviewed and noted below: Selected Entries 04/19/18 04/19/18 07:01 15:46 Temperature 97.2 F L Pulse Rate 96 H 100 H Respiratory 20 Rate Blood Pressure 108/80 122/81 Estimated Date of D/C: 04/26/18
[2018-04-20] MEDS: Divalproex 500 mg ER (ONCE DAILY formulation) PO SCH (21:34)
[2018-04-20] MEDS: PALIPERIDONE 6 MG PO SCH (21:35)
[2018-04-21] MEDS: Pantoprazole 40 mg EC Tab PO SCH ×2 (07:15→16:20)
[2018-04-21] MEDS: PALIPERIDONE 3 MG PO SCH (08:53)
--- NOTE | 2018-04-21 15:02 | PCM.PYCHPN ---
Psychiatric Progress Note - Psychiatric Progress Note Patient seen today, length of contact: 25 min Problems Identified/Issues Discussed: Patient is 27yo male with long h/o mental illness, most likely schizoaffective disorder, multiple admissions in the past, h/o chronic noncompliance with medications and follow up appointments, recent state hospitalization at [facility] for 4 months, refusing to follow up with PACT, noncompliant with meds as they were prescribed, who was transferred to the psychiatric unit s /p treatment on the medical floor for overdosing on benzos and ambien. I reviewed recent notes and met with patient at bedside. I am familiar with patient from multiple prior admissions to this unit as well as my consultation with him last weekend on the medical floor. He is more alert, oriented and focused than our previous meetings. He doesn't appear to remember me though I met with him on multiple occasions during this admission. Grooming is fair and affect is flat, superficial and preoccupied. Responses are perfunctory and I doubt their credibility considering his incongruent affect. He continues to tell me that he is better and that he is no longer depressed. Tolerating current medication changes and denies any new discomfort or pain. He denies issues with sleep and nursing notes seem to indicate that he was able to sleep better last night. Patient generally appears restless and unhappy to me. He has made illogical and anabaptist comments with staff members so thought process is not yet clear or trustworthy. He continues to deny hallucinations or paranoid thoughts. Staff have noted that patient remains illogical in that he provides contradictory statements about his functioning and sleep. Generally isolative. He attends group with minimal participation. There have been no behavioral issues on the unit thus far. Diagnostic Results: schizophrenia r/o schizoaffective disorder Medication Change: Yes ( ambien increased to 10 mg HS PRN) Medical Record Reviewed: Yes Mental Status Examination - Cognitive Function Orientation: Person, Place Memory: Impaired Attention: Poor Concentration: Poor Association: Loose Fund of Knowledge: Poor - Mood Mood: Depressed - Affect Affect: Other (nappropriate, patient was giggling while talking about suicide) - Formal Thought Process Formal Thought Process: Hallucinations, Delusions, Paranoia, Loosening of associations, Circumstantial, Other (disorganized thought process) - Suicidal Ideation Suicidal Ideation: No - Homicidal Ideation Homicidal Ideation: No Goal/Treatment Plan - Goal/Treatment Plan Need for Continued Stay: Remain at risks for inpatient hospitalization, Severe depression anxiety, Discharge may exacerbated symptoms, Failed transitioning, Severe functional impairment Progress Toward Problem(s) and Goals/Treatment Plan: * c/w current tx and plan * Ambien increased to 10 mg HS prn on 04/20/18 * No new weekend labs * Vitals reviewed and noted below: Selected Entries 04/20/18 04/20/18 04/21/18 06:32 16:00 07:19 Temperature 97.5 F L 97.6 F Pulse Rate 96 H 54 L Respiratory 16 20 Rate Blood Pressure 124/82 121/84 108/69 Estimated Date of D/C: 04/26/18
[2018-04-21] MEDS: Divalproex 500 mg ER (ONCE DAILY formulation) PO SCH (21:04)
[2018-04-21] MEDS: PALIPERIDONE 6 MG PO SCH (21:05)
[2018-04-22] MEDS: Pantoprazole 40 mg EC Tab PO SCH ×2 (07:09→17:27)
[2018-04-22] MEDS: PALIPERIDONE 3 MG PO SCH (08:18)
--- NOTE | 2018-04-22 17:58 | PCM.PYCHPN ---
Psychiatric Progress Note - Psychiatric Progress Note Patient seen today, length of contact: 25 min Patient Chief Complaint: "I am fine..." Problems Identified/Issues Discussed: Suicide/ homicide prevention, past psychiatric h/o, current psychiatric symptoms , medical problems, risk/benefits and alternatives of medications, medications compliance, coping strategies, substance abuse h/o, relapse prevention, importance of follow up with psychiatrist and therapist, discharge plan. Medical Problems: pt is s/p OD on ambien and ativan Diagnostic Results: Vital Signs Temp Pulse Pulse Resp BP 04/17/18 07:11 97.7 F 69 20 100/55 L 04/16/18 15:52 78 17 DSM 5 Symptoms Update: Shortly pt is 27yo male with long h/o mental illness, most likely schizoaffective disorder, multiple admissions in the past, h/o chronic noncompliance with medications and follow up appointments, recent state hospitalization at [facility] for 4 months, pt was discharged with the PACT team follow up, but pt refused to be participating in d/c plan, was refusing to follow up with PACT, was decreasing dose of Depakote himself, pt was noncompliant with meds as it was prescribed, as a result pt became depressed , tried to overdosed on benzos and ambien, pt was admitted to ICU initially, pt was on 1:1 on the medical site, pt was seen by over the weekend, this typewriters functional tester took over and follow up on pt yesterday and today, pt was willing to be admitted and get treatment, but pt knows the system, most likely pt does not want to be admitted to [facility] involuntary and that is why pt chose to sign himself to the hospital. patient requires further evaluation and stabilization, medications adjustment. Patient was seen and examined today at the treatment team meeting room, acceptable personal hygiene but seems to be careless about his appearance, patient has good ADLs. pt reported "I like the new medication, it is not too strong or too weak...", no remorse for his suicidal attempt, pt was giggling when was talking about it. family meeting will be requested, pt still disorganized, psychotic, concrete thought process, no abstract thinking.. pt is constantly asking for hari GRESHAM, reported not sleeping well. pt agreed to increase Invega to 6mg am and 6mg hs, less UE tremor, pt also reported that he likes, invega PO. SW obtained collaterals from pt's parents, see notes. pt is welcomed back home, pt was doing relatively well after state hospitalization. Impression: schizophrenia r/o schizoaffective disorder Medication Change: Yes ( ambien increased to 10 mg HS PRN) Medical Record Reviewed: Yes Mental Status Examination - Cognitive Function Orientation: Person, Place Memory: Impaired Attention: Poor Concentration: Poor Association: Loose Fund of Knowledge: Poor - Mood Mood: Depressed - Affect Affect: Other (nappropriate, patient was giggling while talking about suicide) - Formal Thought Process Formal Thought Process: Hallucinations, Delusions, Paranoia, Loosening of associations, Circumstantial, Other (disorganized thought process) - Suicidal Ideation Suicidal Ideation: No - Homicidal Ideation Homicidal Ideation: No Goal/Treatment Plan - Goal/Treatment Plan Need for Continued Stay: Remain at risks for inpatient hospitalization, Severe depression anxiety, Discharge may exacerbated symptoms, Failed transitioning, Severe functional impairment Progress Toward Problem(s) and Goals/Treatment Plan: Milieu/structure/supportive therapy Medical consult f/u will be called consultation for discharge plan and social issues Divalproex 1000 mg PO HS for mood stabilization QUEtiapine [SEROquel] 50 mg PO HS was discontinued traZODone [Desyrel] 50 mg PO HS for insomnia and depression Paxil d/c pt did not appear to be depressed invega 6mg po am and 6mg po hs, if pt agree Invega sustenna, ambien for sleep, sonata d/c Med management Family involvement Follow up on labs Will monitor closely Pt was educated about risk/benefits and alternatives of medications, coping strategies (safety plan, suicide prevention), relapse prevention, importance of follow up with psychiatrist and therapist, stay away from drugs/alcohol/smoking Estimated Date of D/C: 04/26/18
[2018-04-22] MEDS: Divalproex 500 mg ER (ONCE DAILY formulation) PO SCH (21:18)
[2018-04-22] MEDS: PALIPERIDONE 6 MG PO SCH (21:20)
[2018-04-23] MEDS: Pantoprazole 40 mg EC Tab PO SCH ×2 (06:41→17:23)
[2018-04-23] MEDS: INVEGA 6 MG PO SCH (08:37)
--- NOTE | 2018-04-23 16:22 | PCM.PYCHPN ---
Psychiatric Progress Note - Psychiatric Progress Note Patient seen today, length of contact: 30 minutes Patient Chief Complaint: "I am fine, I do want to be on Invega sustenna, pill form helpd me sleep, I will not harm self, how do I know? I know because I will be thinking positive" Problems Identified/Issues Discussed: Suicide/ homicide prevention, past psychiatric h/o, current psychiatric symptoms , medical problems, risk/benefits and alternatives of medications, medications compliance, coping strategies, substance abuse h/o, relapse prevention, importance of follow up with psychiatrist and therapist, discharge plan. Medical Problems: pt is s/p OD on ambien and ativan Diagnostic Results: Vital Signs Temp Pulse Pulse Resp BP 04/17/18 07:11 97.7 F 69 20 100/55 L 04/16/18 15:52 78 17 Vital Signs Temp Pulse Pulse Resp BP 04/23/18 06:54 97.3 F L 58 L 20 100/67 04/22/18 16:18 63 123/78 04/22/18 06:39 97.3 F L 73 18 102/66 04/21/18 16:00 75 150/84 04/21/18 07:19 97.6 F 54 L 20 108/69 04/20/18 16:00 87 121/84 04/20/18 06:32 97.5 F L 96 H 16 124/82 04/19/18 15:46 100 H 122/81 04/19/18 07:01 97.2 F L 96 H 20 108/80 04/18/18 19:32 112 H 113/80 04/18/18 07:20 97.3 F L 68 20 113/72 04/17/18 16:00 77 91/56 L 04/17/18 07:11 97.7 F 69 20 100/55 L 04/16/18 15:52 78 17 DSM 5 Symptoms Update: Shortly pt is 27yo male with long h/o mental illness, most likely schizoaffective disorder, multiple admissions in the past, h/o chronic noncompliance with medications and follow up appointments, recent state hospitalization at [facility] for 4 months, pt was discharged with the PACT team follow up, but pt refused to be participating in d/c plan, was refusing to follow up with PACT, was decreasing dose of Depakote himself, pt was noncompliant with meds as it was prescribed, as a result pt became depressed , tried to overdosed on benzos and ambien, pt was admitted to ICU initially, pt was on 1:1 on the medical site, pt was seen by over the weekend, this short story writer took over and follow up on pt yesterday and today, pt was willing to be admitted and get treatment, but pt knows the system, most likely pt does not want to be admitted to [facility] involuntary and that is why pt chose to sign himself to the hospital. patient requires further evaluation and stabilization, medications adjustment. Patient was seen and examined today with SW in her office, acceptable personal hygiene but seems to be careless about his appearance, patient has good ADLs, at times pt was giggling and smiling inappropriately, this short story writer offered pt to initiate Invega Sustenna, but pt refused. family meeting requested for April 25, pt still disorganized, psychotic, concrete thought process, no abstract thinking. pt is constantly asking for hari GRESHAM, reported not sleeping well. pt agreed to increase Invega to 6mg am and 6mg hs, less UE tremor, pt also reported that he likes, invega PO. SW obtained collaterals from pt's parents, see notes. pt is welcomed back home, pt was doing relatively well after state hospitalization. Impression: schizophrenia r/o schizoaffective disorder Medication Change: Yes (invega increased yesterday) Medical Record Reviewed: Yes Consults ordered or reviewed: medical f/u as needed Mental Status Examination - Cognitive Function Orientation: Person, Place Memory: Impaired Attention: Poor (some improvement) Concentration: Poor (some improvement) Association: Loose (some improvement) Fund of Knowledge: Poor (some improvement) - Mood Mood: Depressed ("I am thinking positive") - Affect Affect: Other (nappropriate, patient was giggling while talking about suicide) - Formal Thought Process Formal Thought Process: Hallucinations (denied), Delusions (denied), Paranoia ( denied), Loosening of associations, Circumstantial, Other (disorganized thought process) - Suicidal Ideation Suicidal Ideation: No - Homicidal Ideation Homicidal Ideation: No Goal/Treatment Plan - Goal/Treatment Plan Need for Continued Stay: Remain at risks for inpatient hospitalization, Severe depression anxiety, Discharge may exacerbated symptoms, Failed transitioning, Severe functional impairment Progress Toward Problem(s) and Goals/Treatment Plan: Milieu/structure/supportive therapy Medical consult f/u will be called SW consultation for discharge plan and social issues Divalproex 1000 mg PO HS for mood stabilization depakote level tomorrow traZODone [Desyrel] 50 mg PO HS for insomnia and depression Paxil d/c pt did not appear to be depressed invega 6mg po am and 6mg po hs, if pt agree Invega booker dang for sleep, sonata d/c Med management Family involvement Follow up on labs Will monitor closely Pt was educated about risk/benefits and alternatives of medications, coping strategies (safety plan, suicide prevention), relapse prevention, importance of follow up with psychiatrist and therapist, stay away from drugs/alcohol/smoking Estimated Date of D/C: 04/26/18
[2018-04-23] MEDS: Ergocalciferol 50,000 Intl Units Cap PO SCH (17:23)
[2018-04-23] MEDS: Divalproex 500 mg ER (ONCE DAILY formulation) PO SCH (21:34)
[2018-04-23] MEDS: PALIPERIDONE 6 MG PO SCH (21:34)
[2018-04-24] MEDS: Pantoprazole 40 mg EC Tab PO SCH ×2 (06:53→16:39)
[2018-04-24] MEDS: INVEGA 6 MG PO SCH (08:24)
--- NOTE | 2018-04-24 16:12 | PCM.PYCHPN ---
Psychiatric Progress Note - Psychiatric Progress Note Patient seen today, length of contact: 30 minutes Patient Chief Complaint: "I am willing to follow up with PACT" Problems Identified/Issues Discussed: Suicide/ homicide prevention, past psychiatric h/o, current psychiatric symptoms , medical problems, risk/benefits and alternatives of medications, medications compliance, coping strategies, substance abuse h/o, relapse prevention, importance of follow up with psychiatrist and therapist, discharge plan. Medical Problems: pt is s/p OD on ambien and ativan Diagnostic Results: Vital Signs Temp Pulse Pulse Resp BP 04/17/18 07:11 97.7 F 69 20 100/55 L 04/16/18 15:52 78 17 Vital Signs Temp Pulse Pulse Resp BP 04/23/18 06:54 97.3 F L 58 L 20 100/67 04/22/18 16:18 63 123/78 04/22/18 06:39 97.3 F L 73 18 102/66 04/21/18 16:00 75 150/84 04/21/18 07:19 97.6 F 54 L 20 108/69 04/20/18 16:00 87 121/84 04/20/18 06:32 97.5 F L 96 H 16 124/82 04/19/18 15:46 100 H 122/81 04/19/18 07:01 97.2 F L 96 H 20 108/80 04/18/18 19:32 112 H 113/80 04/18/18 07:20 97.3 F L 68 20 113/72 04/17/18 16:00 77 91/56 L 04/17/18 07:11 97.7 F 69 20 100/55 L 04/16/18 15:52 78 17 DSM 5 Symptoms Update: Shortly pt is 27yo male with long h/o mental illness, most likely schizoaffective disorder, multiple admissions in the past, h/o chronic noncompliance with medications and follow up appointments, recent state hospitalization at [facility] for 4 months, pt was discharged with the PACT team follow up, but pt refused to be participating in d/c plan, was refusing to follow up with PACT, was decreasing dose of Depakote himself, pt was noncompliant with meds as it was prescribed, as a result pt became depressed , tried to overdosed on benzos and ambien, pt was admitted to ICU initially, pt was on 1:1 on the medical site, pt was seen by over the weekend, this typewriter repairer took over and follow up on pt yesterday and today, pt was willing to be admitted and get treatment, but pt knows the system, most likely pt does not want to be admitted to [facility] involuntary and that is why pt chose to sign himself to the hospital. patient requires further evaluation and stabilization, medications adjustment. Patient was seen and examined today with JAY with the PACT team JAY Orozco, pt was in agreement to follow up with them. family meeting was scheduled for tomorrow, pt/SW/pt's mother/father will be on the phone conference/PACT Pam on the conference call. pt refused to be on Invega IM, pt said that he feels "good, I want to go home" pt still disorganized, psychotic, concrete thought process, no abstract thinking. pt agreed to increase Invega to 6mg am and 6mg hs, less UE tremor, pt also reported that he likes, invega PO. JAY obtained collaterals from pt's parents, see notes. pt is welcomed back home, pt was doing relatively well after state hospitalization. Impression: schizophrenia r/o schizoaffective disorder Medication Change: Yes (invega increased yesterday) Medical Record Reviewed: Yes Mental Status Examination - Cognitive Function Orientation: Person, Place Memory: Impaired Attention: Poor (some improvement) Concentration: Poor (some improvement) Association: Loose (some improvement) Fund of Knowledge: Poor (some improvement) - Mood Mood: Depressed ("I am thinking positive") - Affect Affect: Other (nappropriate, patient was giggling while talking about suicide) - Formal Thought Process Formal Thought Process: Hallucinations (denied), Delusions (denied), Paranoia ( denied), Loosening of associations, Circumstantial, Other (disorganized thought process) - Suicidal Ideation Suicidal Ideation: No - Homicidal Ideation Homicidal Ideation: No Goal/Treatment Plan - Goal/Treatment Plan Need for Continued Stay: Remain at risks for inpatient hospitalization, Severe depression anxiety, Discharge may exacerbated symptoms, Failed transitioning, Severe functional impairment Progress Toward Problem(s) and Goals/Treatment Plan: Milieu/structure/supportive therapy Medical consult f/u will be called JAY consultation for discharge plan and social issues Divalproex 1000 mg PO HS for mood stabilization depakote level 62 04/24/18 traZODone [Desyrel] 200 mg PO HS for insomnia and depression Paxil d/c pt did not appear to be depressed invega 6mg po am and 6mg po hs, if pt agree Invega booker dang for sleep, sonata d/c Med management Family involvement Follow up on labs Will monitor closely Pt was educated about risk/benefits and alternatives of medications, coping strategies (safety plan, suicide prevention), relapse prevention, importance of follow up with psychiatrist and therapist, stay away from drugs/alcohol/smoking Estimated Date of D/C: 04/26/18
--- NOTE | 2018-04-24 16:24 | PCM.BM ---
<Hanh Roberts Y - Last Filed: 04/24/18 16:24> Treatment Plan Problems - Problems identified on initial assessmt HIGH RISK: SUCIDE Date Initiated: 04/16/18 Time Initiated: 16:50 Assessment reference: NA Status: Active HOPELESNESS/HELPLESNESS Date Initiated: 04/16/18 Time Initiated: 16:51 Assessment reference: NA Status: Active FEELING WORTHLESSNESS Date Initiated: 04/16/18 Time Initiated: 16:52 Assessment reference: NA Status: Active INEFFECTIVE COPING Date Initiated: 04/16/18 Time Initiated: 16:53 Assessment reference: NA Status: Active Treatment assets and liabiliti Patient Assests: adapts well, cooperative, ADL independent, good support system , negotiates basic needs Patient Liabilities: auditory impairment - Milieu Protocol Maintain good personal hygiene: every shift Encourage regular showers, every shift Remind patient to perform daily oral care, every shift Assist patient to perform ADL's Conduct patient checks and document Observation sheet: Q15 minutes Maintain personal safety: every shift Educate patient to report safety concerns to staff, every shift Monitor environment for contraband/sharps Medication safety: Monitor for expected outcome, potential side effects: every shift, Assess barriers to learning: every shift, Assess readiness for medication education: every shift Milieu Narrative: Milieu/structure/supportive therapy Medical consult f/u will be called SW consultation for discharge plan and social issues Divalproex 1000 mg PO HS for mood stabilization depakote level 62 04/24/18 traZODone [Desyrel] 200 mg PO HS for insomnia and depression Paxil d/c pt did not appear to be depressed invega 6mg po am and 6mg po hs, if pt agree Invega sustenna ambien for sleep, sonata d/c Med management Family involvement Follow up on labs Will monitor closely Pt was educated about risk/benefits and alternatives of medications, coping strategies (safety plan, suicide prevention), relapse prevention, importance of follow up with psychiatrist and therapist, stay away from drugs/alcohol/smoking Family Contact Family involvement: Family/SO is involved Family contact: Patient agrees to contact Family contact name: Kiran Gunter(father) Ellen Nguyen(mother) Family contacted how many times per week?: 2 - Goals for Treatment Patient goals for treatment: "to feel better." Discharge/Continuing Care - Education Needs Education Needs: Patient Medication, Patient Diagnosis/Disease Process, Patient Coping Skills, Patient Activities of Daily Living, Patient Personal Hygiene/ Grooming, Patient Aftercare Safety Plan - Discharge Discharge Criteria: Tolerates medication w/o severe side effects, Free of Suicidal thoughts, Normal sleep pattern, Ability to care for self - Treatment Team Participation Patient/Family/SO Statement: Milieu/structure/supportive therapy Medical consult f/u will be called SW consultation for discharge plan and social issues Divalproex 1000 mg PO HS for mood stabilization depakote level 62 04/24/18 traZODone [Desyrel] 200 mg PO HS for insomnia and depression Paxil d/c pt did not appear to be depressed invega 6mg po am and 6mg po hs, if pt agree Invega booker dang for sleep, sonata d/c Med management Family involvement Follow up on labs Will monitor closely Pt was educated about risk/benefits and alternatives of medications, coping strategies (safety plan, suicide prevention), relapse prevention, importance of follow up with psychiatrist and therapist, stay away from drugs/alcohol/smoking Treatment Plan Review - Problem HIGH RISK: SUCIDE Time Initiated: 16:50 HOPELESNESS/HELPLESNESS Time Initiated: 16:51 FEELING WORTHLESSNESS Time Initiated: 16:52 INEFFECTIVE COPING Time Initiated: 16:53 <Charissa Aggarwal A - Last Filed: 04/26/18 13:03> - Diagnosis (1) Schizophrenia Status: Acute Interventions: 04/25/18 17:10 patient was compliant with the medications Tolerated medications well, no side effects observed or reported Patient refused to be on injectable form Family meeting took place today Family was willing to accept patient back PACT team will f/u pt in the community No signs of agitation or aggression Insight is improving Denied thoughts of harming himself or others pt has safety plan, pt said in case of SI, "I will call 911, or I will come back to you guys" Good appetite good sleep 04/26/18 13:02
[2018-04-24] MEDS: PALIPERIDONE 6 MG PO SCH (21:29)
[2018-04-24] MEDS: Divalproex 500 mg ER (ONCE DAILY formulation) PO SCH (21:30)
[2018-04-25 07:13] VITALS: BP 107/68; PULSE 49; RESP 18; TEMP 97.5
[2018-04-25] MEDS: Pantoprazole 40 mg EC Tab PO SCH (08:46)
[2018-04-25] MEDS: INVEGA 6 MG PO SCH (08:49)
--- NOTE | 2018-04-25 17:31 | PCM.PYCHDC ---
Mental Status Examination - Mental Status Examination Orientation: Person, Place, Situation, Time Memory: Intact Mood: Neutral Affect: Constricted (but more reactive, mood congruent) Speech: Appropriate Attention: WNL (with much improvement) Concentration: WNL (with much improvement) Association: Loose (baseline) Fund of Knowledge: WNL Formal Thought Process: No Impairment (at the same time patient has been process mildly disorganized but with much improvement to compare with the time of admission) Description of patient's judgement and insight: Pt has improved insight into mental and medical illness, pt was compliant with medications and unit rules and regulations, pt was going to groups, was calm, cooperative, socially appropriate, no behavioral incidents, no agitation, no aggression. Psychotic Thoughts and Behaviors: Pt denied v/a/t hallucinations, denied paranoid ideations, pt does not appear to be psychotic, and thought process is goal directed. Suicidal Ideation: No Current Homicidal Ideation?: No Plan: pt adamantly denied thoughts of harming self or others denied intent or plan. Discharge Summary - Discharge Note Reason for Hospitalization: patient was transferred from medical site where he was admitted status post suicidal attempt on Ativan and Ambien, please see Dr. Vasquez consultation note for more detailed information. Patient requires further evaluation and stabilization and medication management. Psychiatric History (includes Medical, Family, Personal Hx): see HPI Laboratory Data: Lab Results 04/24/18 08:00: Valproic Acid 62 Vital Signs Temp Pulse Pulse Resp BP 04/25/18 07:12 97.5 F L 49 L 18 107/68 04/24/18 16:00 86 114/77 04/24/18 06:44 97.8 F 64 20 110/68 04/23/18 06:54 97.3 F L 58 L 20 100/67 04/22/18 16:18 63 123/78 04/22/18 06:39 97.3 F L 73 18 102/66 04/21/18 16:00 75 150/84 04/21/18 07:19 97.6 F 54 L 20 108/69 04/20/18 16:00 87 121/84 04/20/18 06:32 97.5 F L 96 H 16 124/82 04/19/18 15:46 100 H 122/81 04/19/18 07:01 97.2 F L 96 H 20 108/80 04/18/18 19:32 112 H 113/80 04/18/18 07:20 97.3 F L 68 20 113/72 04/17/18 16:00 77 91/56 L 04/17/18 07:11 97.7 F 69 20 100/55 L 04/16/18 15:52 78 17 Consultations:: List each consultation separately and include: 1. Reason for request. 2. Findings. 3. Follow-up Consultations: medical f/u as needed Summary of Hospital Course include:: 1. Description of specific treatment plan utilized for patients during their course of treatmen. 2. Summarize the time- course for resolution of acute symptoms and/or regressed behaviors. 3. Describe issues identified and worked on during hospitalization. 4. Describe medication utilized. 5. Describe medical problems identified and treated. 6. Reassessment of suicide risk Summary of Hospital Course: Shortly pt is 27yo male with long h/o mental illness, most likely schizoaffective disorder, multiple admissions in the past, h/o chronic noncompliance with medications and follow up appointments, recent state hospitalization at [facility] for 4 months, pt was discharged with the PACT team follow up, but pt refused to be participating in d/c plan, was refusing to follow up with PACT, was decreasing dose of Depakote himself, pt was noncompliant with meds as it was prescribed, as a result pt became depressed , tried to overdosed on benzos and ambien, pt was admitted to ICU initially, pt was on 1:1 on the medical site, pt was seen by over the weekend, this medical underwriter took over, pt was willing to be admitted and get treatment, but pt knows the system, most likely pt does not want to be admitted to [facility] involuntary and that is why pt chose to sign himself to the hospital. patient requires further evaluation and stabilization, medications adjustment. at the time of admission patient presented with acceptable personal hygiene but seems to be careless about his appearance, patient has good ADLs. Patient presented to be disorganized, giggling inappropriately, superficially corporative, patient has no insight into his mental illness, this medical underwriter attempted to discuss possible medications, and possible injectable form of antipsychotic medication but patient refused to be on injectable form reporting that "injection gives me hallucinations", it is incorrect by definition, antipsychotic medications are helping with psychosis but not giving psychotic symptoms, pt was not able to understand that. pt presented to be completely psychotic, was laughing inappropriately, was not able to participate in interview due to his severe thought blocking,disorganized thoughts, as well as behavior. Patient is poor and unreliable historian, due to severe psychosis. pt gave consent for collaterals from mother, will call for collaterals. [facility] [place], med list in the chart pt is a heavy smoker, counseling provided, pt smokes about 1pack a day, nicotine patch offered. Past psychiatric h/o: multiple admissions, most recent was at [facility] where pt staid for 4months, pt was released with PACT team f/u, but pt was noncompliant, [facility] [place], chronic noncompliant with meds and f/ u appts. Two admissions in [facility] and four admissions [place] [facility] [facility]. Pt has h/o using drugs, h/o alcohol consumption, but not this time. Medical h/o: pt reported being healthy, was seen by medical team. Social h/o: pt lives with his father and mother, does not work. Family h/o: none (as per record) over the course of this hospitalization patient was stabilized on the following medications: Invega 6 mg twice a day for psychosis Divalproex 1000 mg PO HS for mood stabilization depakote level 62 04/24/18 62 traZODone [Desyrel] 200 mg PO HS for insomnia and depression ambien for sleep 10mg po hs patient was offered in [facility] but patient refused saying that "it gives me hallucinations". This medical underwriter is very familiar with this patient for past 4 years, this admissionis the first time that patient participate in treatment plan, was not refusing medications, was attending groups, was willing to discuss discharge plan, no agitations no aggressions no disrespectful or violent behavior. Family meeting took place today 04/25/18 with patient mother as well as father was on the conference call as well as [facility] team was on the phone for conference call. horse stud worker/this medical underwriter/patient himself/as well as medical student participated. Meeting went well, patient mother was educated about discharge summary, medications, was educated about the importance to continue the same medications for at least a year unless patient has some side effects, patient mother was advised that patient needs to be supervised when pt takes meds, pt contracted for safety, pt willing to be f/u with PACT team, pt willing to participate with group therapy with PACT. pt said that in case of SI "I will come back to the hospital". pt's mother feels that pt is "much better now". pt' s mother and father were in agreement to take pt back home. pt asked about volunteer work referral, family met with later on. PACT team suggested further hospitalization, and possible screening, but at the same time pt does not meet a criteria for screening or further hospitalization, when PACT team was questioned why pt needs to stay longer in the hospital, they replied that pt refused to be on injectable form, but this is pt's right to refuse it. Tx team feels that pt is in good behavioral control, compliant with meds, hygiene is good, pt deems ready for d/c. Overall pt improved significantly, pt's affect became brighter, pt was less depressed, has realistic future oriented plans, pt at times would smile inappropriately, but not acutely psychotic, mostly residual thought process is disorganized, denied being anxious, pt was socially appropriate, no behavioral issues, pts insight improved as well and soon pt deemed to be ready for discharge. At the time of the discharge pt denied been depressed, denied thoughts of harming self or others, denied psychotic symptoms, and pt does not appeared to be psychotic, denied been anxious, pt is not in imminent danger to self or others, will be following up at PACT team, information about follow up appointment, time and address provided to the pt, it is patient responsibility to follow up with outpatient clinic, PMD as well as specialists (see note for more detailed information). In case pt will need to obtain results of studies pending at discharge pt was provided with contact information of Psychiatric Inpatient unit [phone] as well as Medical Record Department [phone]. Nicotine patch was offered pt denied using drugs AA meetings as well as smoking cessation treatment program information was provided by the pt was provided with prescriptions for all of medications (please see medication reconciliation form) Pt was educated about safety plan in case of worsening of symptoms or in case of suicidal or homicidal ideation call 911 or go to the nearest ER, also was educated to take meds as prescribed and stay away from drugs, pt verbalized understanding. - Diagnosis (1) Schizophrenia Status: Acute - Final Diagnosis (DSM 5) Condition upon Discharge: IMPROVED Disposition: HOME/ ROUTINE Follow-up Treatment Plan: At the time of the discharge pt denied been depressed, denied thoughts of harming self or others, denied psychotic symptoms, and pt does not appeared to be psychotic, denied been anxious, pt is not in imminent danger to self or others, will be following up at PACT team, information about follow up appointment, time and address provided to the pt, it is patient responsibility to follow up with outpatient clinic, PMD as well as specialists (see note for more detailed information). In case pt will need to obtain results of studies pending at discharge pt was provided with contact information of Psychiatric Inpatient unit [phone] as well as Medical Record Department [phone]. Nicotine patch was offered pt denied using drugs AA meetings as well as smoking cessation treatment program information was provided by the pt was provided with prescriptions for all of medications (please see medication reconciliation form) Pt was educated about safety plan in case of worsening of symptoms or in case of suicidal or homicidal ideation call 911 or go to the nearest ER, also was educated to take meds as prescribed and stay away from drugs, pt verbalized understanding. Prescriptions/Medication Reconciliation: Benztropine [Cogentin] 2 mg PO BID #30 tab Divalproex [Depakote ER(ONCE DAILY)] 1,000 mg PO HS #30 ter Ergocalciferol [Drisdol 50,000 Intl Units Cap] 1 cap PO Q7D #2 cap hydrOXYzine Pamoate [Vistaril] 50 mg PO BID PRN #30 cap PRN Reason: Anxiety Nicotine 21 mg/24 hr [Nicoderm Cq] 1 patch TD DAILY #14 patch Paliperidone [Invega] 6 mg PO AMHS #30 ter Pantoprazole [Protonix EC Tab] 40 mg PO 0600,1600 #14 ect traZODone [Desyrel] 200 mg PO HS #30 tab Zolpidem [Ambien] 10 mg PO HS PRN #14 tab PRN Reason: Insomnia - Smoking Cessation Smoking Cessation Medication prescribed: Yes - Antipsychotic Medications Pt discharged on 2 or more routine antipsychotic medications: No
== END 2018-04-25 14:06 | disposition home or self-care (01) | DRG 885 ==
LOC: PSYC 15:10
PROVIDERS: ADMIT Psychiatry & Neurology Psychiatry; ATTEND Psychiatry & Neurology Psychiatry
DX: F25.9 Schizoaffective disorder, unspecified (principal); M62.82 Rhabdomyolysis; E55.9 Vitamin D deficiency, unspecified; G47.00 Insomnia, unspecified; E78.5 Hyperlipidemia, unspecified; F41.9 Anxiety disorder, unspecified; F17.210 Nicotine dependence, cigarettes, uncomplicated; Z91.14 Patient's other noncompliance with medication regimen; Z91.19 Patient's noncompliance with other medical treatment and regimen; Z91.5 Personal history of self-harm

== ENCOUNTER 2018-09-02 02:44 | Inpatient (IN) | payer BC, OTHER ==
--- NOTE | 2018-09-02 02:57 | ED PDOC ---
Arrival/HPI - General Time Seen by Provider: 09/02/18 02:54 Historian: Patient, EMS - History of Present Illness Narrative History of Present Illness (Text): 09/02/18 02:57 Wily Gunter is a 28 year old male, whose past medical history includes schizoaffective disorder, bipolar disorder with psychosis, hyperlipidemia, substance abuse, anxiety, and depression, who presents to the Emergency department brought in by EMS for bizarre behavior. As per EMS, patient called them but was acting bizarrely. Patient is awake, alert, with disorganized speech and tangential thoughts. Limited HPI and ROS secondary to patient's acuity of condition. Symptom Onset: Gradual Symptom Course: Unchanged Activities at Onset: Light Context: Home Past Medical History - Provider Review Nursing Documentation Reviewed: Yes - Infectious Disease Hx of Infectious Diseases: None - Tetanus Immunization Tetanus Immunization: Unknown - Past Medical History Past Medical History: No Previous - Cardiac Hx Cardiac Disorders: No Hx Hypertension: No - Pulmonary Hx Respiratory Disorders: No Hx Tuberculosis: No - Neurological HX Cerebrovascular Accident: No Hx Seizures: Yes - HEENT Hx HEENT Disorder: No - Renal Hx Renal Disorder: No - Endocrine/Metabolic Hx Endocrine Disorders: No - Hematological/Oncological Hx Cancer: No - Integumentary Hx Dermatological Disorder: No - Musculoskeletal/Rheumatological Hx Musculoskeletal Disorders: No Hx Falls: No - Gastrointestinal Hx Gastrointestinal Disorders: No - Genitourinary/Gynecological Hx Genitourinary Disorders: No Hx Sexually Transmitted Diseases: No - Psychiatric Hx Substance Use: No - Past Surgical History Past Surgical History: No Previous - Surgical History Other/Comment: nose - Anesthesia Hx Anesthesia: Yes - Suicidal Assessment Feels Threatened In Home Enviroment: No Family/Social History - Physician Review Nursing Documentation Reviewed: Yes Family/Social History: Unknown Family HX Smoking Status: Heavy Smoker > 10 Cigarettes Daily Hx Alcohol Use: No Hx Substance Use: No Hx Substance Use Treatment: No Allergies/Home Meds Allergies/Adverse Reactions: Allergies No Known Allergies Allergy (Verified 04/16/18 20:53) Review of Systems - Review of Systems Systems not reviewed;Unavailable: Acuity of Condition Psychiatric: Other (+bizarre behavior) Physical Exam Vital Signs Reviewed: Yes Temperature: Afebrile Blood Pressure: Normal Pulse: Regular Respiratory Rate: Normal Appearance: Positive for: Well-Appearing, Non-Toxic, Comfortable Pain Distress: None Mental Status: Positive for: other (Awake, alert) - Systems Exam Head: Present: Atraumatic, Normocephalic Pupils: Present: PERRL Extroacular Muscles: Present: EOMI Conjunctiva: Present: Normal Mouth: Present: Moist Mucous Membranes Neck: Present: Normal Range of Motion Respiratory/Chest: Present: Clear to Auscultation, Good Air Exchange. No: Respiratory Distress, Accessory Muscle Use Cardiovascular: Present: Regular Rate and Rhythm, Normal S1, S2. No: Murmurs Abdomen: No: Tenderness, Distention, Peritoneal Signs Back: Present: Normal Inspection Upper Extremity: Present: Normal Inspection. No: Cyanosis, Edema Lower Extremity: Present: Normal Inspection. No: Edema Neurological: Present: GCS=15, CN II-XII Intact, Speech Normal Skin: Present: Warm, Dry, Normal Color. No: Rashes Psychiatric: Present: Alert, Other (Disorganized speech, tangential thoughts). No: Oriented x 3 Medical Decision Making ED Course and Treatment: 09/02/18 02:57 Impression: 28 year old male brought in for bizarre behavior. Plan: -- EKG -- Chest X-ray -- Labs, alcohol level -- Urinalysis, Urine drug screen -- Reassess and disposition Prior Visits: Notes and results from previous visits were reviewed. Progress Notes: Reviewed EKG, NSR at 86 bpm. 1st degree AV block. No acute changes. 09/02/18 03:28 Chest X-ray reviewed, shows no acute processes. 09/02/18 05:36 Pt medically cleared for PES evaluation. 09/02/18 05:59 Pt seen and evaluated by PES screener Jocelynn, who discussed case with psychiatrist cassandra consultant. Pt to be screened by [facility] [place] [facility]. 09/02/18 07:[address] Leyva, pending [facility] [place] [facility] screening. - Lab Interpretations I have reviewed the lab results: Yes - RAD Interpretation Rug Cleaner: ED Physician - EKG Interpretation Interpreted by ED Physician: Yes Type: 12 lead EKG - Scribe Statement The provider has reviewed the documentation as recorded by the Scribe Irena William Provider Scribe Attestation: All medical record entries made by the Scribe were at my direction and personally dictated by me. I have reviewed the chart and agree that the record accurately reflects my personal performance of the history, physical exam, medical decision making, and the department course for this patient. I have also personally directed, reviewed, and agree with the discharge instructions and disposition. Disposition/Present on Arrival - Present on Arrival Any Indicators Present on Arrival: No History of DVT/PE: No History of Uncontrolled Diabetes: No Urinary Catheter: No History Surgical Site Infection Following: None - Disposition Have Diagnosis and Disposition been Completed?: No Diagnosis: Schizoaffective disorder Disposition Time: 07:00 Patient Problems: Current Active Problems Problem Status Onset Schizoaffective disorder Acute Condition: STABLE Referrals: Yuan Lee MD [Primary Care Provider] - Follow up with primary
[2018-09-02 03:29] LABS: MEAN CELL VOLUME 80.4 fl (80.0-105.0); MEAN CORPUSCULAR HEMOGLOBIN 26.9 pg (25.0-35.0); MEAN CORPUSCULAR HGB CONC 33.5 g/dl (31.0-37.0); MEAN PLATELET VOLUME 9.2 fl (7.0-11.0); RBC 5.2 10^6/uL (3.5-6.1); RED CELL DISTRIBUTION WIDTH 13.5 % (11.5-14.5); WHITE BLOOD COUNT 10.3 10^3/ul (4.5-11.0)
[2018-09-02 03:50] LABS: ALB/GLOB RATIO 1.5 (1.1-1.8); ALBUMIN 4.3 g/dL (3.0-4.8); ALT/SGPT 20 U/L (7-56); AST/SGOT 36 U/L (17-59); BLOOD UREA NITROGEN 24 mg/dL (7-21); CALCIUM 9.5 mg/dL (8.4-10.5); GFR NON-AFRICAN AMERICAN > 60
[2018-09-02 04:24] LABS: URINE BILIRUBIN NEGATIVE (NEGATIVE); URINE BLOOD NEGATIVE (NEGATIVE); URINE GLUCOSE (UA) NEGATIVE (NEGATIVE); URINE LEUKOCYTE ESTERASE NEGATIVE Leu/uL (NEGATIVE); URINE PROTEIN NEGATIVE mg/dL (<30 mg/dL); URINE UROBILINOGEN 0.2 E.U./dL (<1 E.U./dL)
[2018-09-02 04:40] LABS: URINE APPEARANCE CLEAR (CLEAR); URINE COLOR YELLOW (YELLOW)
[2018-09-02 04:58] LABS: BARBITURATES, UR NEGATIVE (NEGATIVE); BENZODIAZEPINES, UR NEGATIVE (NEGATIVE); OPIATES, UR NEGATIVE (NEGATIVE); PHENCYCLIDINE, UR NEGATIVE (NEGATIVE)
--- NOTE | 2018-09-02 07:49 | ED PDOC ---
Physical Exam Vital Signs Reviewed: Yes Vital Signs Temp Pulse Resp BP Pulse Ox 09/02/18 07:25 84 18 135/78 99 09/02/18 05:35 88 17 138/88 99 09/02/18 02:53 97.5 F L 88 18 134/99 H 100 Temperature: Afebrile Blood Pressure: Normal Pulse: Regular Respiratory Rate: Normal Medical Decision Making ED Course and Treatment: 09/02/18 07:00 Case endorsed to me by Dr. Couch, pending [facility] screening. 09/02/18 15:12 pt now voluntary. accepted to pes. medically cleared this am. - Lab Interpretations Lab Results: 09/02/18 03:21 09/02/18 03:21 Lab Results 09/02/18 04:09: Urine Color Yellow, Urine Appearance Clear, Urine pH 6.0, Ur Specific [place] 1.010, Urine Protein Negative, Urine Glucose (UA) Negative, Ur ine Ketones Negative, Urine Blood Negative, Urine Nitrate Negative, Urine Bilirubin Negative, Urine Urobilinogen 0.2, Ur Leukocyte Esterase Negative 09/02/18 04:09: Urine Opiates Screen Negative, Urine Methadone Screen Negative, Ur Barbiturates Screen Negative, Ur Phencyclidine Scrn Negative, Ur Amphetamines Screen Negative, U Benzodiazepines Scrn Negative, U Oth Cocaine Metabols Negative, U Cannabinoids Screen Negative 09/02/18 03:21: WBC 10.3 D, RBC 5.20, Hgb 14.0, Hct 41.8 L, MCV 80.4, MCH 26.9, MCHC 33.5, RDW 13.5, Plt Count 181, MPV 9.2 09/02/18 03:21: Alcohol, Quantitative < 10 09/02/18 03:21: Sodium 138, Potassium 3.9, Chloride 100, Carbon Dioxide 27, Anion Gap 14, BUN 24 H, Creatinine 0.9, Est GFR ( Amer) > 60, Est GFR (Non-Af Amer) > 60, Random Glucose 106, Calcium 9.5, Total Bilirubin 0.3, AST 36, ALT 20, Alkaline Phosphatase 43, Total Protein 7.2, Albumin 4.3, Globulin 2.9, Albumin/Globulin Ratio 1.5 - RAD Interpretation Radiology Orders: 09/02/18 03:04 CHEST PORTABLE [RAD] Stat - Scribe Statement The provider has reviewed the documentation as recorded by the Jose F Huffman All medical record entries made by the Jose F were at my direction and personally dictated by me. I have reviewed the chart and agree that the record accurately reflects my personal performance of the history, physical exam, medical decision making, and the department course for this patient. I have also personally directed, reviewed, and agree with the discharge instructions and disposition. Disposition/Present on Arrival - Present on Arrival Any Indicators Present on Arrival: No History of DVT/PE: No History of Uncontrolled Diabetes: No Urinary Catheter: No History of Decub. Ulcer: No History Surgical Site Infection Following: None - Disposition Have Diagnosis and Disposition been Completed?: Yes Diagnosis: Schizoaffective disorder Disposition: HOSPITALIZED Disposition Time: 01:00 Patient Problems: Current Active Problems Problem Status Onset Schizoaffective disorder Acute Condition: STABLE
--- NOTE | 2018-09-02 09:17 | RAD ---
Date of service: 09/02/2018 HISTORY: Medical clearance COMPARISON: Comparison chest 06/25/2018 FINDINGS: LUNGS: No active pulmonary disease. PLEURA: No significant pleural effusion identified, no pneumothorax apparent. CARDIOVASCULAR: No atherosclerotic calcification present Normal. OSSEOUS STRUCTURES: No significant abnormalities. VISUALIZED UPPER ABDOMEN: Normal. OTHER FINDINGS: None. IMPRESSION: No active disease.
--- NOTE | 2018-09-02 10:07 | CARD ---
APPROVED REPORT Date of service: 09/02/2018 EKG Measurement Heart [id number] <Conclusion> Sinus rhythm with 1st degree AV block RVCD LVH by voltage Baseline artifact
[2018-09-02 13:07] VITALS: O2SAT 100
[2018-09-02] MEDS ORDERED: Magnesium Hydroxide Susp 30 ml UD PO PRN (16:02)
[2018-09-02] MEDS ORDERED: Alum-Mag Hydrox-Simethicone Susp (30 mL) PO PRN (16:02)
--- NOTE | 2018-09-02 16:11 | PCM.BM ---
<Lelo Khan - Last Filed: 09/02/18 16:08> Treatment Plan Problems - Problems identified on initial assessmt ALTERED THOUGHT Date Initiated: 09/02/18 Time Initiated: 16:00 Assessment reference: NA Status: Active Priority: 1 AUDITORY HALLUCINATION Date Initiated: 09/02/18 Time Initiated: 16:00 Assessment reference: NA Status: Active Priority: 2 INEFFECTIVE INDV Date Initiated: 09/02/18 Time Initiated: 16:00 Assessment reference: NA Status: Active Priority: 3 MEDICATION ADHERENCE Date Initiated: 09/02/18 Time Initiated: 16:00 Assessment reference: NA Status: Active Priority: 4 Treatment assets and liabiliti Patient Assests: adapts well, cooperative, ADL independent, good support system, negotiates basic needs, cognitively intact Patient Liabilities: other (NON COMPLANCE WITH [place]) - Milieu Protocol Maintain good personal hygiene: every shift Encourage regular showers, every shift Remind patient to perform daily oral care, every shift Assist patient to perform ADL's Maintain personal safety: every shift Educate patient to report safety concerns to staff, every shift Monitor environment for contraband/sharps Medication safety: Monitor for expected outcome, potential side effects: every shift, Assess barriers to learning: every shift, Assess readiness for medication education: every shift Discharge/Continuing Care - Education Needs Education Needs: Patient Medication, Patient Diagnosis/Disease Process, Patient Coping Skills, Patient Community resources, Patient Activities of Daily Living, Patient Nutrition, Patient Uses of Medical Equipment, Patient Health Practices/Safety, Patient Personal Hygiene/Grooming, Patient Aftercare Safety Plan - Discharge Discharge Criteria: Tolerates medication w/o severe side effects, Free of paranoid thoughts, Free of agitation, Normal sleep pattern, Ability to care for self, Reduction of target symptoms Discharge to:: Home <Charissa Aggarwal - Last Filed: 09/03/18 08:33> - Diagnosis (1) Schizoaffective disorder Status: Acute Interventions: 09/03/18 08:33 Psychoeducation/psychotherapy Psychopharmacology/adjustment of medications as needed/ monitoring possible side effects Evaluate pt on daily basis Compliance with medications and follow up appointments Long acting medication if pt is noncompliant with pill form Suicide and homicide risk assessment and prevention, coping strategies, safety plan Relapse prevention Reduction of symptoms Improve functional status Possible assertive community treatment Cognitive behavioral therapy Family involvement Possible social skill training as outpatient <Jocelynn Singh - Last Filed: 09/04/18 16:37> Family Contact - Outside Agency [facility] Care involvment: Following patient during stay, Information-sharing Agency contact name: [facility] Agency contact number: [phone]
[2018-09-02 18:37] VITALS: BMI 22.1
--- NOTE | 2018-09-02 20:22 | CON ---
DATE: 09/02/2018 HISTORY OF PRESENT ILLNESS: The patient is a 28-year-old male with reported history of psychosis, possible schizoaffective disorder bipolar type. The patient has chronic noncompliance with the medications and followup appointments. Currently under care the care of PAC team. The patient was brought in for evaluation of bizarre and disorganized behavior. Family called 911. In the emergency room, the patient presented to be completely disorganized. Tangential and circumstantial thought process. The patient was not able to hold conversation, actively hallucinating, and psychiatrist on-call [facility] evaluation. This contract technical writer spoke to the patient at the morning time for evaluation. The patient presented to be sleepy, easily arousable. The patient reported that he was noncompliant with medications since . The patient reported that last time he saw his PAC team was last week. The patient reported that he got scared and when this contract technical writer asked any specific reason why he got scared, the patient said everything happened in my cell phone. After this contract technical writer asked for clarification, the patient replied "I don't know, I'm not building the cell phone." In the emergency room, also the patient was making statements that he is fearful and he did not want Gabe to help him. The patient also was looking for some , who looks like porcupine, and he was requested to have pet porcupine. The patient presented to be uncooperative, but not violent. As per record, the patient is supposed to be on trazodone 200 mg at the nighttime, Vistaril 50 mg twice a day, Ambien 10 mg at the nighttime, Invega 6 mg at the morning time at the nighttime, Depakote extended-release 1,000 mg daily, Cogentin 2 mg twice a day. PHYSICAL EXAMINATION: VITAL SIGNS: Reviewed. Temperature 97.5, pulse is 84, blood pressure 135/78, respirations 18, oxygen saturation is 99. MEDICATIONS: Reviewed. Nothing was given to the patient in the emergency room. LABORATORY DATA: Labs reviewed. Chemistry reviewed. Urinalysis reviewed. Toxicology was negative for any substances. MENTAL STATUS EXAMINATION: This contract technical writer described above. The patient presented to be sleepy, but easily arousable, intermittent eye contact. Speech was disorganized. Mood described, "I'm here, I'm scared." Affect was constricted, but at times reactive. The patient smiles, but not related to the context of the conversation. The patient obviously presented to be psychotic and disorganized. Insight and judgment seems to be limited. Impulses are unpredictable. IMPRESSION: Per history, schizoaffective disorder, bipolar type. PLAN: The patient was recommended for [facility] screening process. I agree with that. We will give as-needed medications. The patient needs higher level of care, maybe State hospitalization. Meanwhile, the patient will be in the emergency room and we should be involved. Should you have any questions give me a call back. Thank you very much for letting me participate in care of your patient. Charissa Aggarwal MD
[2018-09-02] MEDS: Divalproex 500 mg DR(BID formulation) PO SCH (21:41)
[2018-09-02] MEDS ORDERED: PALIPERIDONE 6 MG PO SCH (22:00)
[2018-09-02] MEDS ORDERED: Home Med 1 UNIT PO SCH (22:00)
[2018-09-03] MEDS: Pantoprazole 40 mg EC Tab PO SCH (06:20)
[2018-09-03 07:48] LABS: HDL CHOLESTEROL 49 mg/dL (29-60)
[2018-09-03 07:59] LABS: LDL CHOLESTEROL 93 mg/dL (0-129)
[2018-09-03 08:03] LABS: FREE T4 1.6 ng/dL (0.78-2.19)
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
[2018-09-03] MEDS: INVEGA 9 MG PO SCH (21:18)
[2018-09-03] MEDS: Divalproex 500 mg DR(BID formulation) PO SCH (21:18)
[2018-09-04] MEDS: Pantoprazole 40 mg EC Tab PO SCH (06:02)
--- NOTE | 2018-09-04 16:10 | PCM.PYCHPN ---
Psychiatric Progress Note - Psychiatric Progress Note Patient seen today, length of contact: 30 minutes Patient Chief Complaint: "my mother bought me Hallowdavid costume, I want to be a Spiderman, I want to be discharged this Sunday, if you will not discharge me at this Sunday, I want you to allow me to wear that costume on Sunday, by the way I want to mohinder Navid Gandara" Problems Identified/Issues Discussed: Suicide/ homicide prevention, past psychiatric h/o, current psychiatric symptoms, medical problems, risk/benefits and alternatives of medications, medications compliance, coping strategies, substance abuse h/o, relapse prevention, importance of follow up with psychiatrist and therapist, discharge plan. Medical Problems: patient is healthy Diagnostic Results: 09/02/18 03:21 09/02/18 03:21 Lab Results 09/03/18 07:20: Valproic Acid 86 09/03/18 07:20: Triglycerides 71, Cholesterol 146, LDL Cholesterol Direct 93, HDL Cholesterol 49 09/03/18 07:20: RPR Nonreactive 09/03/18 07:20: Free T4 1.60, TSH 3rd Generation 1.37 09/02/18 04:09: Urine Color Yellow, Urine Appearance Clear, Urine pH 6.0, Ur Specific [place] 1.010, Urine Protein Negative, Urine Glucose (UA) Negative, Urine Ketones Negative, Urine Blood Negative, Urine Nitrate Negative, Urine Bilirubin Negative, Urine Urobilinogen 0.2, Ur Leukocyte Esterase Negative 09/02/18 04:09: Urine Opiates Screen Negative, Urine Methadone Screen Negative, Ur Barbiturates Screen Negative, Ur Phencyclidine Scrn Negative, Ur Amphetamines Screen Negative, U Benzodiazepines Scrn Negative, U Oth Cocaine Metabols Negative, U Cannabinoids Screen Negative 09/02/18 03:21: WBC 10.3 D, RBC 5.20, Hgb 14.0, Hct 41.8 L, MCV 80.4, MCH 26.9, MCHC 33.5, RDW 13.5, Plt Count 181, MPV 9.2 09/02/18 03:21: Alcohol, Quantitative < 10 09/02/18 03:21: Sodium 138, Potassium 3.9, Chloride 100, Carbon Dioxide 27, Anion Gap 14, BUN 24 H, Creatinine 0.9, Est GFR ( Amer) > 60, Est GFR (Non-Af Amer) > 60, Random Glucose 106, Calcium 9.5, Total Bilirubin 0.3, AST 36, ALT 20, Alkaline Phosphatase 43, Total Protein 7.2, Albumin 4.3, Globulin 2.9, Albumin/Globulin Ratio 1.5 Vital Signs Temp Pulse Resp BP Pulse Ox 09/04/18 06:55 97.4 F L 57 L 20 104/68 09/03/18 16:45 94 H 120/84 09/03/18 06:56 97.9 F 56 L 20 121/74 09/02/18 16:00 84 130/95 H 09/02/18 14:00 97.1 F L 92 H 22 132/93 H 09/02/18 13:09 98.2 F 75 18 131/65 100 09/02/18 12:45 98.2 F 75 18 129/64 100 09/02/18 11:55 71 18 125/65 99 09/02/18 11:00 75 18 128/69 99 09/02/18 09:33 78 18 131/74 99 09/02/18 07:25 84 18 135/78 99 09/02/18 05:35 88 17 138/88 99 09/02/18 02:53 97.5 F L 88 18 134/99 H 100 DSM 5 Symptoms Update: Renee Gunter is a 28 year old male, whose past history includes schizoaffective disorder, bipolar type, h/o substance abuse, anxiety, pt has h/o noncompliance with meds, h/o state hospitalizations, now under care of PACT team, h/o adjusting meds himself, h/o presents to the Emergency department brought in by EMS for bizarre behavior. As per EMS, patient called them but was acting bizarrely. in ED pt was screened by [facility], found to be not committable because pt pt was willing to be admitted and get treatment, this bond underwriter would like to emphasize the fact pt knows the system, most likely pt does not want to be admitted to [facility] involuntary and that is why pt chose to sign himself to [facility]. patient requires further evaluation and stabilization, medications adjustment. pt was seen by this bond underwriter in ED 09/03/18, see notes for more detailed information. patient was seen at treatment team meeting, patient presented to be disorganized, laughing inappropriately, patient said that he does not want to be on injectable form of Invega because "after injection I would smoke in smoke and smoke again, then I would feel that my had surrounded by a glass, then I would feel that TV is placed in to my had, I could see people killing themselves, then my had becomes very heavy and it would have seizures", patient obviously disorganized, psychotic, then patient came back to the treatment team meeting saying that "my mother bought me Halloween costume, I want to be a Spiderman, I want to be discharged this Sunday, if you will not discharge me at this Sunday, I want you to allow me to wear that costume on Sunday". pt agreed to take 12mg of invega at the nighttime only. as per staff patient does not appear to be agitated or aggressive, patient compliant with the medications, but disorganized. Patient is self isolating in his room, but started to be reasonable. Patient tolerated medications well, no side effects observed or reported, aims 0, no EPS. Impression: Schizophrenia versus schizoaffective disorder Medication Change: Yes (invega 12mg hs) Medical Record Reviewed: Yes Consults ordered or reviewed: patient was seen by medical team and the emergency room Mental Status Examination - Cognitive Function Orientation: Person, Place, Situation Memory: Intact Attention: Poor Concentration: Poor Association: Loose Fund of Knowledge: Poor - Mood Mood: Depressed - Affect Affect: Constricted, Flat - Formal Thought Process Formal Thought Process: Hallucinations, Delusions, Paranoia, Loosening of associations, Circumstantial - Suicidal Ideation Suicidal Ideation: No - Homicidal Ideation Homicidal Ideation: No Goal/Treatment Plan - Goal/Treatment Plan Need for Continued Stay: Remain at risks for inpatient hospitalization, Severe depression anxiety, Discharge may exacerbated symptoms, Severe functional impairment Progress Toward Problem(s) and Goals/Treatment Plan: Milieu/structure/supportive therapy Medical eval was done in ED SW consultation for discharge plan and social issues Med management invega 12mg po hs for psychosis, agreed with this dose only depakote 1000mg po hs for mdd for mood stabilization depakote level 86 09/03/18 cogentin 1mg po bid vistaril PRN Geodon and ativan IM/PO PRN Family involvement Follow up on labs Will monitor closely Pt was educated about risk/benefits and alternatives of medications, coping strategies (safety plan, suicide prevention), relapse prevention, importance of follow up with psychiatrist and therapist, stay away from drugs/alcohol/smoking Estimated Date of D/C: 09/11/18
[2018-09-04] MEDS: INVEGA 9 MG PO SCH (21:18)
[2018-09-04] MEDS: Divalproex 500 mg DR(BID formulation) PO SCH (21:18)
[2018-09-04] MEDS ORDERED: INVEGA 3 MG PO SCH (22:00)
[2018-09-05] MEDS: Pantoprazole 40 mg EC Tab PO SCH (06:55)
--- NOTE | 2018-09-05 16:31 | PCM.PYCHPN ---
Psychiatric Progress Note - Psychiatric Progress Note Patient seen today, length of contact: 30 minutes Patient Chief Complaint: "my mother bought me Hallowdavid costume, I want to be a Spiderman, I want to be discharged this Sunday, if you will not discharge me at this Sunday, I want you to allow me to wear that costume on Sunday, by the way I want to mohinder Navid Gandara" Problems Identified/Issues Discussed: Suicide/ homicide prevention, past psychiatric h/o, current psychiatric symptoms, medical problems, risk/benefits and alternatives of medications, medications compliance, coping strategies, substance abuse h/o, relapse prevention, importance of follow up with psychiatrist and therapist, discharge plan. Medical Problems: patient is healthy Diagnostic Results: 09/02/18 03:21 09/02/18 03:21 Lab Results 09/03/18 07:20: Valproic Acid 86 09/03/18 07:20: Triglycerides 71, Cholesterol 146, LDL Cholesterol Direct 93, HDL Cholesterol 49 09/03/18 07:20: RPR Nonreactive 09/03/18 07:20: Free T4 1.60, TSH 3rd Generation 1.37 09/02/18 04:09: Urine Color Yellow, Urine Appearance Clear, Urine pH 6.0, Ur Specific [place] 1.010, Urine Protein Negative, Urine Glucose (UA) Negative, Urine Ketones Negative, Urine Blood Negative, Urine Nitrate Negative, Urine Bilirubin Negative, Urine Urobilinogen 0.2, Ur Leukocyte Esterase Negative 09/02/18 04:09: Urine Opiates Screen Negative, Urine Methadone Screen Negative, Ur Barbiturates Screen Negative, Ur Phencyclidine Scrn Negative, Ur Amphetamines Screen Negative, U Benzodiazepines Scrn Negative, U Oth Cocaine Metabols Negative, U Cannabinoids Screen Negative 09/02/18 03:21: WBC 10.3 D, RBC 5.20, Hgb 14.0, Hct 41.8 L, MCV 80.4, MCH 26.9, MCHC 33.5, RDW 13.5, Plt Count 181, MPV 9.2 09/02/18 03:21: Alcohol, Quantitative < 10 09/02/18 03:21: Sodium 138, Potassium 3.9, Chloride 100, Carbon Dioxide 27, Anion Gap 14, BUN 24 H, Creatinine 0.9, Est GFR ( Amer) > 60, Est GFR (Non-Af Amer) > 60, Random Glucose 106, Calcium 9.5, Total Bilirubin 0.3, AST 36, ALT 20, Alkaline Phosphatase 43, Total Protein 7.2, Albumin 4.3, Globulin 2.9, Albumin/Globulin Ratio 1.5 Vital Signs Temp Pulse Resp BP Pulse Ox 09/04/18 06:55 97.4 F L 57 L 20 104/68 09/03/18 16:45 94 H 120/84 09/03/18 06:56 97.9 F 56 L 20 121/74 09/02/18 16:00 84 130/95 H 09/02/18 14:00 97.1 F L 92 H 22 132/93 H 09/02/18 13:09 98.2 F 75 18 131/65 100 09/02/18 12:45 98.2 F 75 18 129/64 100 09/02/18 11:55 71 18 125/65 99 09/02/18 11:00 75 18 128/69 99 09/02/18 09:33 78 18 131/74 99 09/02/18 07:25 84 18 135/78 99 09/02/18 05:35 88 17 138/88 99 09/02/18 02:53 97.5 F L 88 18 134/99 H 100 DSM 5 Symptoms Update: Renee Gunter is a 28 year old male, whose past history includes schizoaffective disorder, bipolar type, h/o substance abuse, anxiety, pt has h/o noncompliance with meds, h/o state hospitalizations, now under care of PACT team, h/o adjusting meds himself, h/o presents to the Emergency department brought in by EMS for bizarre behavior. As per EMS, patient called them but was acting bizarrely. in ED pt was screened by [facility] found to be not committable because pt pt was willing to be admitted and get treatment, this greeting card writer would like to emphasize the fact pt knows the system, most likely pt does not want to be admitted to [facility] involuntary and that is why pt chose to sign himself to [facility]. patient requires further evaluation and stabilization, medications adjustment. pt was seen by this greeting card writer in ED 09/03/18, see notes for more detailed information. patient was seen next to the nursing station, pt is psychotic, disorganized but not aggressive. pt agreed to take 12mg of invega at the nighttime only. as per staff patient does not appear to be agitated or aggressive, patient compliant with the medications, but disorganized. Patient is self isolating in his room, but started to socialize. Patient tolerated medications well, no side effects observed or reported, aims 0, no EPS. Impression: Schizophrenia versus schizoaffective disorder Medication Change: Yes (invega 12mg hs) Medical Record Reviewed: Yes Mental Status Examination - Cognitive Function Orientation: Person, Place, Situation Memory: Intact Attention: Poor Concentration: Poor Association: Loose Fund of Knowledge: Poor - Mood Mood: Depressed - Affect Affect: Constricted, Flat - Formal Thought Process Formal Thought Process: Hallucinations, Delusions, Paranoia, Loosening of associations, Circumstantial - Suicidal Ideation Suicidal Ideation: No - Homicidal Ideation Homicidal Ideation: No Goal/Treatment Plan - Goal/Treatment Plan Need for Continued Stay: Remain at risks for inpatient hospitalization, Severe depression anxiety, Discharge may exacerbated symptoms, Severe functional im pairment Progress Toward Problem(s) and Goals/Treatment Plan: Milieu/structure/supportive therapy Medical eval was done in ED SW consultation for discharge plan and social issues Med management invega 12mg po hs for psychosis, agreed with this dose only depakote 1000mg po hs for mdd for mood stabilization depakote level 86 09/03/18 cogentin 1mg po bid vistaril PRN Geodon and ativan IM/PO PRN Family involvement Follow up on labs Will monitor closely Pt was educated about risk/benefits and alternatives of medications, coping strategies (safety plan, suicide prevention), relapse prevention, importance of follow up with psychiatrist and therapist, stay away from drugs/alcohol/smoking Estimated Date of D/C: 09/11/18
[2018-09-05] MEDS: Divalproex 500 mg DR(BID formulation) PO SCH (21:28)
[2018-09-05] MEDS: INVEGA PO SCH (21:36)
[2018-09-06] MEDS: Pantoprazole 40 mg EC Tab PO SCH (06:48)
--- NOTE | 2018-09-06 16:15 | PCM.PYCHPN ---
Psychiatric Progress Note - Psychiatric Progress Note Patient seen today, length of contact: 30 minutes Patient Chief Complaint: "my Halloween wilbur is not for this crowd" Problems Identified/Issues Discussed: Suicide/ homicide prevention, past psychiatric h/o, current psychiatric symptoms, medical problems, risk/benefits and alternatives of medications, medications compliance, coping strategies, substance abuse h/o, relapse prevention, importance of follow up with psychiatrist and therapist, discharge plan. Medical Problems: patient is healthy Diagnostic Results: 09/02/18 03:21 09/02/18 03:21 Lab Results 09/03/18 07:20: Valproic Acid 86 09/03/18 07:20: Triglycerides 71, Cholesterol 146, LDL Cholesterol Direct 93, HDL Cholesterol 49 09/03/18 07:20: RPR Nonreactive 09/03/18 07:20: Free T4 1.60, TSH 3rd Generation 1.37 09/02/18 04:09: Urine Color Yellow, Urine Appearance Clear, Urine pH 6.0, Ur Specific [place] 1.010, Urine Protein Negative, Urine Glucose (UA) Negative, Urine Ketones Negative, Urine Blood Negative, Urine Nitrate Negative, Urine Bilirubin Negative, Urine Urobilinogen 0.2, Ur Leukocyte Esterase Negative 09/02/18 04:09: Urine Opiates Screen Negative, Urine Methadone Screen Negative, Ur Barbiturates Screen Negative, Ur Phencyclidine Scrn Negative, Ur Amphetamines Screen Negative, U Benzodiazepines Scrn Negative, U Oth Cocaine Metabols Negative, U Cannabinoids Screen Negative 09/02/18 03:21: WBC 10.3 D, RBC 5.20, Hgb 14.0, Hct 41.8 L, MCV 80.4, MCH 26.9, MCHC 33.5, RDW 13.5, Plt Count 181, MPV 9.2 09/02/18 03:21: Alcohol, Quantitative < 10 09/02/18 03:21: Sodium 138, Potassium 3.9, Chloride 100, Carbon Dioxide 27, Anion Gap 14, BUN 24 H, Creatinine 0.9, Est GFR ( Amer) > 60, Est GFR (Non-Af Amer) > 60, Random Glucose 106, Calcium 9.5, Total Bilirubin 0.3, AST 36, ALT 20, Alkaline Phosphatase 43, Total Protein 7.2, Albumin 4.3, Globulin 2.9, Albumin/Globulin Ratio 1.5 Vital Signs Temp Pulse Resp BP Pulse Ox 09/04/18 06:55 97.4 F L 57 L 20 104/68 09/03/18 16:45 94 H 120/84 09/03/18 06:56 97.9 F 56 L 20 121/74 09/02/18 16:00 84 130/95 H 09/02/18 14:00 97.1 F L 92 H 22 132/93 H 09/02/18 13:09 98.2 F 75 18 131/65 100 09/02/18 12:45 98.2 F 75 18 129/64 100 09/02/18 11:55 71 18 125/65 99 09/02/18 11:00 75 18 128/69 99 09/02/18 09:33 78 18 131/74 99 09/02/18 07:25 84 18 135/78 99 09/02/18 05:35 88 17 138/88 99 09/02/18 02:53 97.5 F L 88 18 134/99 H 100 DSM 5 Symptoms Update: Renee Gunter is a 28 year old male, whose past history includes schizoaffective disorder, bipolar type, h/o substance abuse, anxiety, pt has h/o noncompliance with meds, h/o state hospitalizations, now under care of PACT team, h/o adjusting meds himself, h/o presents to the Emergency department brought in by EMS for bizarre behavior. As per EMS, patient called them but was acting bizarrely. in ED pt was screened by [facility], found to be not committable because pt pt was willing to be admitted and get treatment, this keno writer would like to emphasize the fact pt knows the system, most likely pt does not want to be admitted to [facility] involuntary and that is why pt chose to sign himself to [facility]. patient requires further evaluation and stabilization, medications adjustment. pt was seen by this keno writer in ED 09/03/18, see notes for more detailed information. patient was seen next to the nursing station, pt is psychotic, disorganized but not aggressive, some improvement with his presentation, pt said that he does not wear the spider man costume because "it is not for this crowd". pt agreed to take 12mg of invega at the nighttime only. as per staff patient does not appear to be agitated or aggressive, patient compliant with the medications, but disorganized, paranoid. Patient is self isolating in his room, but started to socialize. Patient tolerated medications well, no side effects observed or reported, aims 0, no EPS. Impression: Schizophrenia versus schizoaffective disorder Medication Change: No ( ) Medical Record Reviewed: Yes Mental Status Examination - Cognitive Function Orientation: Person, Place, Situation Memory: Intact Attention: Poor (some improvement) Concentration: Poor (some improvement) Association: Loose (some improvement) Fund of Knowledge: WNL - Mood Mood: Depressed ("I feel better") - Affect Affect: Constricted (but more reactive) - Speech Speech: Appropriate - Formal Thought Process Formal Thought Process: Hallucinations (denied), Delusions (chronic), Paranoia (chronic), Loosening of associations, Circumstantial - Suicidal Ideation Suicidal Ideation: No - Homicidal Ideation Homicidal Ideation: No Goal/Treatment Plan - Goal/Treatment Plan Need for Continued Stay: Remain at risks for inpatient hospitalization, Severe depression anxiety, Discharge may exacerbated symptoms, Severe functional impairment Progress Toward Problem(s) and Goals/Treatment Plan: Milieu/structure/supportive therapy Medical eval was done in ED SW consultation for discharge plan and social issues Med management invega 12mg po hs for psychosis, agreed with this dose only depakote 1000mg po hs for mdd for mood stabilization depakote level 86 09/03/18 cogentin 1mg po bid vistaril PRN Geodon and ativan IM/PO PRN Family involvement Follow up on labs Will monitor closely Pt was educated about risk/benefits and alternatives of medications, coping strategies (safety plan, suicide prevention), relapse prevention, importance of follow up with psychiatrist and therapist, stay away from drugs/alcohol/smoking Estimated Date of D/C: 09/11/18
[2018-09-06] MEDS: Divalproex 500 mg DR(BID formulation) PO SCH (21:17)
[2018-09-06] MEDS: INVEGA PO SCH (21:23)
--- NOTE | 2018-09-07 09:22 | PCM.PYCHPN ---
Psychiatric Progress Note - Psychiatric Progress Note Patient seen today, length of contact: 30 minutes Problems Identified/Issues Discussed: I reviewed recent notes and patient was interviewed at bedside. Patient is known to me from interviews during prior admissions. Presently he is in fair control on the unit, taking his medications without major behavioral issues. Grooming is unkempt and affect is still flat and preoccupied. Focus is poor. Patient reports, unconvincingly, that his mood is "good". He denies new concerns or complaints including any side effects/pain/discomfort. Patient is visible on the unit and staff notes indicate that patient usually keeps to himself and does not interact with other patients. He is disengaged during our interview. Continues to demonstrate symptoms of paranoia and disorganization. Insight and judgment are poor. Diagnostic Results: Schizophrenia versus schizoaffective disorder Medication Change: No ( ) Medical Record Reviewed: Yes Mental Status Examination - Cognitive Function Orientation: Person, Place, Situation Memory: Intact Attention: Poor (some improvement) Concentration: Poor (some improvement) Association: Loose (some improvement) Fund of Knowledge: WNL - Mood Mood: Depressed ("I feel better") - Affect Affect: Constricted (but more reactive), Flat - Speech Speech: Appropriate - Formal Thought Process Formal Thought Process: Hallucinations (denied), Delusions (chronic), Paranoia (chronic), Loosening of associations, Circumstantial - Suicidal Ideation Suicidal Ideation: No - Homicidal Ideation Homicidal Ideation: No Goal/Treatment Plan - Goal/Treatment Plan Need for Continued Stay: Remain at risks for inpatient hospitalization, Severe depression anxiety, Discharge may exacerbated symptoms, Severe functional impairment Progress Toward Problem(s) and Goals/Treatment Plan: * c/w current treatment and plan * No new weekend lab results thus far * Vitals reviewed and noted below: Selected Entries 09/06/18 09/06/18 07:03 16:40 Temperature 97.3 F L Pulse Rate 55 L 83 Respiratory 20 Rate Blood Pressure 106/65 126/86 Estimated Date of D/C: 09/11/18
[2018-09-07] MEDS: Pantoprazole 40 mg EC Tab PO SCH (09:57)
[2018-09-07] MEDS: Divalproex 500 mg DR(BID formulation) PO SCH (21:25)
[2018-09-07] MEDS: INVEGA PO SCH (21:28)
[2018-09-08] MEDS: Pantoprazole 40 mg EC Tab PO SCH (07:04)
--- NOTE | 2018-09-08 09:34 | PCM.PYCHPN ---
Psychiatric Progress Note - Psychiatric Progress Note Patient seen today, length of contact: 30 minutes Problems Identified/Issues Discussed: I reviewed recent notes and patient was interviewed at bedside again. He has been in fair control on the unit, taking his medications without major behav ioral issues. No bizarre behavior noted over the weekend thus far. Grooming is unkempt and affect is still flat and preoccupied. As usual he isn't very engaged during my questioning. He indicates that he is feeling better since admission and credits his medications. Patient denies side effects, discomfort or pain. I ask patient why he becomes noncompliant with his medications if there don't appear to be any major side effects or issues with them and he really doesn't have much of an explanation. He does admit to noncompliance [employer] resulting in increased symptoms of "excitability and restlessness" as well as worsening sleep. Feels these symptoms are improving since restarting his medications.. Patient still reports, unconvincingly, that his mood is "good". Denies hallucinations or paranoia. Patient is visible on the unit and staff notes indicate that patient usually keeps to himself and does not interact with other patients. Staff have noted that patient remains paranoid, on Sunday he told staff that another patient was plotting against him. Insight and judgement are improving but remain impaired. Diagnostic Results: Schizophrenia vs. Schizoaffective Disorder Medication Change: No ( ) Medical Record Reviewed: Yes Mental Status Examination - Cognitive Function Orientation: Person, Place, Situation Memory: Intact Attention: Poor (some improvement) Concentration: Poor (some improvement) Association: Loose (some improvement) Fund of Knowledge: WNL - Mood Mood: Depressed ("I feel better") - Affect Affect: Constricted (but more reactive), Flat - Speech Speech: Appropriate - Formal Thought Process Formal Thought Process: Hallucinations (denied), Delusions (chronic), Paranoia ( Staff have noted that patient remains paranoid, on Sunday he told staff that another patient was plotting against him. ), Loosening of associations, Circumstantial - Suicidal Ideation Suicidal Ideation: No - Homicidal Ideation Homicidal Ideation: No Goal/Treatment Plan - Goal/Treatment Plan Need for Continued Stay: Remain at risks for inpatient hospitalization, Severe depression anxiety, Discharge may exacerbated symptoms, Severe functional impairment Progress Toward Problem(s) and Goals/Treatment Plan: * c/w current tx and plan * No new weekend lab results thus far * Vitals reviewed and noted below: Selected Entries 09/07/18 09/07/18 07:10 16:00 Temperature 98.0 F Pulse Rate 54 L 64 Respiratory 20 Rate Blood Pressure 99/63 L 119/81 Estimated Date of D/C: 09/11/18
[2018-09-08] MEDS: Divalproex 500 mg DR(BID formulation) PO SCH (21:50)
[2018-09-08] MEDS: INVEGA PO SCH (21:51)
[2018-09-09] MEDS: Pantoprazole 40 mg EC Tab PO SCH (06:19)
--- NOTE | 2018-09-09 16:39 | PCM.PYCHPN ---
Psychiatric Progress Note - Psychiatric Progress Note Patient seen today, length of contact: 30 minutes Patient Chief Complaint: "I am fine..." Problems Identified/Issues Discussed: Suicide/ homicide prevention, past psychiatric h/o, current psychiatric symptoms, medical problems, risk/benefits and alternatives of medications, medications compliance, coping strategies, substance abuse h/o, relapse prevention, importance of follow up with psychiatrist and therapist, discharge plan. Medical Problems: patient is healthy Diagnostic Results: 09/02/18 03:21 09/02/18 03:21 Lab Results 09/03/18 07:20: Valproic Acid 86 09/03/18 07:20: Triglycerides 71, Cholesterol 146, LDL Cholesterol Direct 93, HDL Cholesterol 49 09/03/18 07:20: RPR Nonreactive 09/03/18 07:20: Free T4 1.60, TSH 3rd Generation 1.37 09/02/18 04:09: Urine Color Yellow, Urine Appearance Clear, Urine pH 6.0, Ur Specific [place] 1.010, Urine Protein Negative, Urine Glucose (UA) Negative, Urine Ketones Negative, Urine Blood Negative, Urine Nitrate Negative, Urine Bilirubin Negative, Urine Urobilinogen 0.2, Ur Leukocyte Esterase Negative 09/02/18 04:09: Urine Opiates Screen Negative, Urine Methadone Screen Negative, Ur Barbiturates Screen Negative, Ur Phencyclidine Scrn Negative, Ur Amphetamines Screen Negative, U Benzodiazepines Scrn Negative, U Oth Cocaine Metabols Negative, U Cannabinoids Screen Negative 09/02/18 03:21: WBC 10.3 D, RBC 5.20, Hgb 14.0, Hct 41.8 L, MCV 80.4, MCH 26.9, MCHC 33.5, RDW 13.5, Plt Count 181, MPV 9.2 09/02/18 03:21: Alcohol, Quantitative < 10 09/02/18 03:21: Sodium 138, Potassium 3.9, Chloride 100, Carbon Dioxide 27, Anion Gap 14, BUN 24 H, Creatinine 0.9, Est GFR ( Amer) > 60, Est GFR (Non-Af Amer) > 60, Random Glucose 106, Calcium 9.5, Total Bilirubin 0.3, AST 36, ALT 20, Alkaline Phosphatase 43, Total Protein 7.2, Albumin 4.3, Globulin 2.9, Albumin/Globulin Ratio 1.5 Vital Signs Temp Pulse Resp BP Pulse Ox 09/04/18 06:55 97.4 F L 57 L 20 104/68 09/03/18 16:45 94 H 120/84 09/03/18 06:56 97.9 F 56 L 20 121/74 09/02/18 16:00 84 130/95 H 09/02/18 14:00 97.1 F L 92 H 22 132/93 H 09/02/18 13:09 98.2 F 75 18 131/65 100 09/02/18 12:45 98.2 F 75 18 129/64 100 09/02/18 11:55 71 18 125/65 99 09/02/18 11:00 75 18 128/69 99 09/02/18 09:33 78 18 131/74 99 09/02/18 07:25 84 18 135/78 99 09/02/18 05:35 88 17 138/88 99 09/02/18 02:53 97.5 F L 88 18 134/99 H 100 DSM 5 Symptoms Update: Renee Gunter is a 28 year old male, whose past history includes schizoaffective disorder, bipolar type, h/o substance abuse, anxiety, pt has h/o noncompliance with meds, h/o state hospitalizations, now under care of PACT team, h/o adjusting meds himself, h/o presents to the Emergency department brought in by EMS for bizarre behavior. As per EMS, patient called them but was acting bizarrely. in ED pt was screened by [facility], found to be not committable because pt pt was willing to be admitted and get treatment, this web content writer would like to emphasize the fact pt knows the system, most likely pt does not want to be admitted to [facility] involuntary and that is why pt chose to sign himself to [facility]. patient requires further evaluation and stabilization, medications adjustment. pt was seen by this web content writer in ED 09/03/18, see notes for more detailed information. patient was seen at the dining area, patient presented with some psychomotor derivation, thought process is better organized and more goal directed. Patient has chronic symptoms of psychosis. As per weekends report patient was compliant with the medications no agitation or aggression. pt agreed to take 12mg of invega at the nighttime only. as per staff patient does not appear to be agitated or aggressive, patient compliant with the medications, but disorganized, paranoid. patient is more visible in the unit. asbestos removal worker was advised to give a call to patient's parents and PACT team. Patient tolerated medications well, no side effects observed or reported, aims 0, no EPS. Impression: Schizophrenia versus schizoaffective disorder Medication Change: No ( ) Medical Record Reviewed: Yes Mental Status Examination - Cognitive Function Orientation: Person, Place, Situation Memory: Intact Attention: Poor (some improvement) Concentration: Poor (some improvement) Association: Loose (some improvement) Fund of Knowledge: WNL - Mood Mood: Depressed ("I feel better") - Affect Affect: Constricted (but more reactive), Flat - Speech Speech: Appropriate - Formal Thought Process Formal Thought Process: Hallucinations (denied), Delusions (chronic), Paranoia ( Staff have noted that patient remains paranoid, on Sunday he told staff that another patient was plotting against him. ), Loosening of associations, Circumstantial - Suicidal Ideation Suicidal Ideation: No - Homicidal Ideation Homicidal Ideation: No Goal/Treatment Plan - Goal/Treatment Plan Need for Continued Stay: Remain at risks for inpatient hospitalization, Severe depression anxiety, Discharge may exacerbated symptoms, Severe functional impairment Progress Toward Problem(s) and Goals/Treatment Plan: Milieu/structure/supportive therapy Medical eval was done in ED SW consultation for discharge plan and social issues Med management invega 12mg po hs for psychosis, agreed with this dose only depakote 1000mg po hs for mdd for mood stabilization depakote level 86 09/03/18 cogentin 1mg po bid vistaril PRN Geodon and ativan IM/PO PRN Family involvement Follow up on labs Will monitor closely Pt was educated about risk/benefits and alternatives of medications, coping strategies (safety plan, suicide prevention), relapse prevention, importance of follow up with psychiatrist and therapist, stay away from drugs/alcohol/smoking Estimated Date of D/C: 09/11/18
[2018-09-09] MEDS: Divalproex 500 mg DR(BID formulation) PO SCH (21:16)
[2018-09-09] MEDS: INVEGA PO SCH (21:20)
[2018-09-10] MEDS: Pantoprazole 40 mg EC Tab PO SCH (06:33)
[2018-09-10] MEDS ORDERED: INVEGA 3 MG PO SCH (16:02)
--- NOTE | 2018-09-10 16:35 | PCM.PYCHPN ---
Psychiatric Progress Note - Psychiatric Progress Note Patient seen today, length of contact: 30 minutes Patient Chief Complaint: "I know what to do in order for my parents to take me back home, first I need to take my medications in front of them, second I need to stop smoking cigarettes, third I'm not allowed to drink, I willing to keep my promises". Problems Identified/Issues Discussed: Suicide/ homicide prevention, past psychiatric h/o, current psychiatric symptoms, medical problems, risk/benefits and alternatives of medications, medications compliance, coping strategies, substance abuse h/o, relapse prevention, importance of follow up with psychiatrist and therapist, discharge plan. Medical Problems: patient is healthy Diagnostic Results: 09/02/18 03:21 09/02/18 03:21 Lab Results 09/03/18 07:20: Valproic Acid 86 09/03/18 07:20: Triglycerides 71, Cholesterol 146, LDL Cholesterol Direct 93, HDL Cholesterol 49 09/03/18 07:20: RPR Nonreactive 09/03/18 07:20: Free T4 1.60, TSH 3rd Generation 1.37 09/02/18 04:09: Urine Color Yellow, Urine Appearance Clear, Urine pH 6.0, Ur Specific [place] 1.010, Urine Protein Negative, Urine Glucose (UA) Negative, Urine Ketones Negative, Urine Blood Negative, Urine Nitrate Negative, Urine Bilirubin Negative, Urine Urobilinogen 0.2, Ur Leukocyte Esterase Negative 09/02/18 04:09: Urine Opiates Screen Negative, Urine Methadone Screen Negative, Ur Barbiturates Screen Negative, Ur Phencyclidine Scrn Negative, Ur Amphetamines Screen Negative, U Benzodiazepines Scrn Negative, U Oth Cocaine Metabols Negative, U Cannabinoids Screen Negative 09/02/18 03:21: WBC 10.3 D, RBC 5.20, Hgb 14.0, Hct 41.8 L, MCV 80.4, MCH 26.9, MCHC 33.5, RDW 13.5, Plt Count 181, MPV 9.2 09/02/18 03:21: Alcohol, Quantitative < 10 09/02/18 03:21: Sodium 138, Potassium 3.9, Chloride 100, Carbon Dioxide 27, Anion Gap 14, BUN 24 H, Creatinine 0.9, Est GFR ( Amer) > 60, Est GFR (Non-Af Amer) > 60, Random Glucose 106, Calcium 9.5, Total Bilirubin 0.3, AST 36, ALT 20, Alkaline Phosphatase 43, Total Protein 7.2, Albumin 4.3, Globulin 2.9, Albumin/Globulin Ratio 1.5 Vital Signs Temp Pulse Resp BP Pulse Ox 09/04/18 06:55 97.4 F L 57 L 20 104/68 09/03/18 16:45 94 H 120/84 09/03/18 06:56 97.9 F 56 L 20 121/74 09/02/18 16:00 84 130/95 H 09/02/18 14:00 97.1 F L 92 H 22 132/93 H 09/02/18 13:09 98.2 F 75 18 131/65 100 09/02/18 12:45 98.2 F 75 18 129/64 100 09/02/18 11:55 71 18 125/65 99 09/02/18 11:00 75 18 128/69 99 09/02/18 09:33 78 18 131/74 99 09/02/18 07:25 84 18 135/78 99 09/02/18 05:35 88 17 138/88 99 09/02/18 02:53 97.5 F L 88 18 134/99 H 100 DSM 5 Symptoms Update: Renee Gunter is a 28 year old male, whose past history includes schizoaffective disorder, bipolar type, h/o substance abuse, anxiety, pt has h/o noncompliance with meds, h/o state hospitalizations, now under care of PACT team, h/o adjusting meds himself, h/o presents to the Emergency department brought in by EMS for bizarre behavior. As per EMS, patient called them but was acting bizarrely. in ED pt was screened by [facility], found to be not committable because pt pt was willing to be admitted and get treatment, this va underwriter would like to emphasize the fact pt knows the system, most likely pt does not want to be admitted to [facility] involuntary and that is why pt chose to sign himself to [facility]. patient requires further evaluation and stabilization, medications adjustment. pt was seen by this va underwriter in ED 09/03/18, see notes for more detailed information. patient was seen at the dining area, patient presented with some psychomotor derivation, thought process is better organized and more goal directed. Patient has chronic symptoms of psychosis.As per weekends report patient was compliant with the medications no agitation or aggression. social insurance specialist had prolonged conversation but patient parents, as per patient parents request patient was to take medications in front of them, patient agreed, patient agreed stop smoking and stop drinking. pt agreed to take 12mg of invega at the nighttime only. as per staff patient does not appear to be agitated or aggressive, patient compliant with the medications, but disorganized, paranoid. patient is more visible in the unit. track worker was advised to give a call to patient's parents and PACT team. Patient tolerated medications well, no side effects observed or reported, aims 0, no EPS. Impression: Schizophrenia versus schizoaffective disorder Medication Change: No ( ) Medical Record Reviewed: Yes Mental Status Examination - Cognitive Function Orientation: Person, Place, Situation Memory: Intact Attention: Poor (some improvement) Concentration: Poor (some improvement) Association: Loose (some improvement) Fund of Knowledge: WNL - Mood Mood: Depressed ("I feel better") - Affect Affect: Constricted (but more reactive), Flat - Speech Speech: Appropriate - Formal Thought Process Formal Thought Process: Hallucinations (denied), Delusions (chronic), Paranoia (much better), Loosening of associations, Circumstantial - Suicidal Ideation Suicidal Ideation: No - Homicidal Ideation Homicidal Ideation: No Goal/Treatment Plan - Goal/Treatment Plan Need for Continued Stay: Remain at risks for inpatient hospitalization, Severe depression anxiety, Discharge may exacerbated symptoms, Severe functional impairment Progress Toward Problem(s) and Goals/Treatment Plan: Milieu/structure/supportive therapy Medical eval was done in ED SW consultation for discharge plan and social issues Med management invega 12mg po hs for psychosis, agreed with this dose only depakote 1000mg po hs for mdd for mood stabilization depakote level 86 09/03/18 cogentin 1mg po bid vistaril PRN Geodon and ativan IM/PO PRN Family involvement Follow up on labs Will monitor closely Pt was educated about risk/benefits and alternatives of medications, coping strategies (safety plan, suicide prevention), relapse prevention, importance of follow up with psychiatrist and therapist, stay away from drugs/alcohol/smoking Estimated Date of D/C: 09/11/18
[2018-09-10] MEDS ORDERED: INVEGA 9 MG PO SCH (22:00)
[2018-09-10] MEDS: Divalproex 500 mg DR(BID formulation) PO SCH (22:27)
[2018-09-11] MEDS: Pantoprazole 40 mg EC Tab PO SCH (06:33)
[2018-09-11 14:56] VITALS: BP 107/63; PULSE 85; RESP 17; TEMP 98.1
--- NOTE | 2018-09-11 15:02 | PCM.PYCHDC ---
Mental Status Examination - Mental Status Examination Orientation: Person, Place, Situation, Time Memory: Intact Mood: Neutral Affect: Constricted (but reactive and mood congruent) Speech: Appropriate Attention: WNL Concentration: WNL Association: WNL Fund of Knowledge: WNL Formal Thought Process: Delusions (which are chronic) Description of patient's judgement and insight: Pt has improved insight into mental and medical illness, pt was compliant with medications and unit rules and regulations, pt was going to groups, was calm, cooperative, socially appropriate, no behavioral incidents, no agitation, no aggression. Psychotic Thoughts and Behaviors: Pt denied v/a/t hallucinations, denied paranoid ideations, pt does not appear to be psychotic, and thought process is goal directed. Suicidal Ideation: No Current Homicidal Ideation?: No Plan: pt adamantly denied thoughts of harming self or others denied intent or plan. Discharge Summary - Discharge Note Reason for Hospitalization: pt prefer not to be in the hospital, signed himself ONLY because he did not want to be screened by [facility]. Psychiatric History (includes Medical, Family, Personal Hx): as per HPI Laboratory Data: 09/02/18 03:21 09/02/18 03:21 Lab Results 09/03/18 07:20: Valproic Acid 86 09/03/18 07:20: Triglycerides 71, Cholesterol 146, LDL Cholesterol Direct 93, HDL Cholesterol 49 09/03/18 07:20: RPR Nonreactive 09/03/18 07:20: Free T4 1.60, TSH 3rd Generation 1.37 09/02/18 04:09: Urine Color Yellow, Urine Appearance Clear, Urine pH 6.0, Ur Specific [place] 1.010, Urine Protein Negative, Urine Glucose (UA) Negative, Urine Ketones Negative, Urine Blood Negative, Urine Nitrate Negative, Urine Bilirubin Negative, Urine Urobilinogen 0.2, Ur Leukocyte Esterase Negative 09/02/18 04:09: Urine Opiates Screen Negative, Urine Methadone Screen Negative, Ur Barbiturates Screen Negative, Ur Phencyclidine Scrn Negative, Ur Amphetamines Screen Negative, U Benzodiazepines Scrn Negative, U Oth Cocaine Metabols Negative, U Cannabinoids Screen Negative 09/02/18 03:21: WBC 10.3 D, RBC 5.20, Hgb 14.0, Hct 41.8 L, MCV 80.4, MCH 26.9, MCHC 33.5, RDW 13.5, Plt Count 181, MPV 9.2 09/02/18 03:21: Alcohol, Quantitative < 10 09/02/18 03:21: Sodium 138, Potassium 3.9, Chloride 100, Carbon Dioxide 27, Anion Gap 14, BUN 24 H, Creatinine 0.9, Est GFR ( Amer) > 60, Est GFR (Non-Af Amer) > 60, Random Glucose 106, Calcium 9.5, Total Bilirubin 0.3, AST 36, ALT 20, Alkaline Phosphatase 43, Total Protein 7.2, Albumin 4.3, Globulin 2.9, Albumin/Globulin Ratio 1.5 Vital Signs Temp Pulse Resp BP Pulse Ox 09/11/18 10:00 98.1 F 85 17 107/63 09/11/18 07:30 97.7 F 69 20 96/58 L 09/10/18 16:00 74 116/80 09/10/18 07:19 97.4 F L 49 L 18 91/60 L 09/09/18 15:16 89 114/81 09/09/18 06:55 97.3 F L 53 L 20 91/55 L 09/08/18 16:00 82 116/67 09/08/18 07:00 98.1 F 53 L 20 97/61 L 09/07/18 16:00 64 119/81 09/07/18 07:10 98.0 F 54 L 20 99/63 L 09/06/18 16:40 83 126/86 09/06/18 07:03 97.3 F L 55 L 20 106/65 09/05/18 16:00 93 H 131/88 09/05/18 07:28 97.0 F L 60 20 98/58 L 09/04/18 15:00 85 109/80 09/04/18 06:55 97.4 F L 57 L 20 104/68 09/03/18 16:45 94 H 120/84 09/03/18 06:56 97.9 F 56 L 20 121/74 09/02/18 16:00 84 130/95 H 09/02/18 14:00 97.1 F L 92 H 22 132/93 H 09/02/18 13:09 98.2 F 75 18 131/65 100 09/02/18 12:45 98.2 F 75 18 129/64 100 09/02/18 11:55 71 18 125/65 99 09/02/18 11:00 75 18 128/69 99 09/02/18 09:33 78 18 131/74 99 09/02/18 07:25 84 18 135/78 99 09/02/18 05:35 88 17 138/88 99 09/02/18 02:53 97.5 F L 88 18 134/99 H 100 Consultations:: List each consultation separately and include: 1. Reason for request. 2. Findings. 3. Follow-up Consultations: patient was seen by medical team and the emergency room patient is in good physical health, did not require any medical consultations Summary of Hospital Course include:: 1. Description of specific treatment plan utilized for patients during their course of treatmen. 2. Summarize the time- course for resolution of acute symptoms and/or regressed behaviors. 3. Describe issues identified and worked on during hospitalization. 4. Describe medication utilized. 5. Describe medical problems identified and treated. 6. Reassessment of suicide risk Summary of Hospital Course: Renee Gunter is a 28 year old male, whose past history includes schizoaffective disorder, bipolar type, h/o substance abuse, anxiety, pt has h/o noncompliance with meds, h/o state hospitalizations, now under care of PACT team, h/o adjusting meds himself, h/o presents to the Emergency department brought in by EMS for bizarre behavior. As per EMS, patient called them but was acting bizarrely. in ED pt was screened by [facility], found to be not committable because pt pt was willing to be admitted and get treatment, this database report writer would like to emphasize the fact pt knows the system, most likely pt does not want to be admitted to [facility] involuntary and that is why pt chose to sign himself to [facility]. patient required further evaluation and stabilization, medications adjustment. pt was seen by this database report writer in ED 09/03/18, see notes for more detailed information. at the time of admission patient presented to be disorganized bizarre and psychotic please see admission note for more detailed information. 09/02/18 03:21 09/02/18 03:21 Lab Results 09/03/18 07:20: Valproic Acid 86 09/03/18 07:20: Triglycerides 71, Cholesterol 146, LDL Cholesterol Direct 93, HDL Cholesterol 49 09/03/18 07:20: Free T4 1.60, TSH 3rd Generation 1.37 09/02/18 04:09: Urine Color Yellow, Urine Appearance Clear, Urine pH 6.0, Ur Specific [place] 1.010, Urine Protein Negative, Urine Glucose (UA) Negative, Urine Ketones Negative, Urine Blood Negative, Urine Nitrate Negative, Urine Bilirubin Negative, Urine Urobilinogen 0.2, Ur Leukocyte Esterase Negative 09/02/18 04:09: Urine Opiates Screen Negative, Urine Methadone Screen Negative, Ur Barbiturates Screen Negative, Ur Phencyclidine Scrn Negative, Ur Amphetamines Screen Negative, U Benzodiazepines Scrn Negative, U Oth Cocaine Metabols Negative, U Cannabinoids Screen Negative 09/02/18 03:21: WBC 10.3 D, RBC 5.20, Hgb 14.0, Hct 41.8 L, MCV 80.4, MCH 26.9, MCHC 33.5, RDW 13.5, Plt Count 181, MPV 9.2 09/02/18 03:21: Alcohol, Quantitative < 10 09/02/18 03:21: Sodium 138, Potassium 3.9, Chloride 100, Carbon Dioxide 27, Anion Gap 14, BUN 24 H, Creatinine 0.9, Est GFR ( Amer) > 60, Est GFR (Non-Af Amer) > 60, Random Glucose 106, Calcium 9.5, Total Bilirubin 0.3, AST 36, ALT 20, Alkaline Phosphatase 43, Total Protein 7.2, Albumin 4.3, Globulin 2.9, Albumin/Globulin Ratio 1.5 Vital Signs Temp Pulse Resp BP Pulse Ox 09/03/18 06:56 97.9 F 56 L 20 121/74 09/02/18 16:00 84 130/95 H 09/02/18 14:00 97.1 F L 92 H 22 132/93 H 09/02/18 13:09 98.2 F 75 18 131/65 100 09/02/18 12:45 98.2 F 75 18 129/64 100 09/02/18 11:55 71 18 125/65 99 09/02/18 11:00 75 18 128/69 99 09/02/18 09:33 78 18 131/74 99 09/02/18 07:25 84 18 135/78 99 09/02/18 05:35 88 17 138/88 99 09/02/18 02:53 97.5 F L 88 18 134/99 H 100 patient was stabilized on the following medications: invega 12mg po hs for psychosis, agreed to be on this dose only depakote 1000mg po hs for mood stabilization depakote level 86 09/03/18 cogentin 1mg po bid vistaril PRN Geodon and ativan IM/PO PRN patient tolerated medications well, no side effects observed or reported, aims 0, no EPS. Collaterals were obtained from patient's parents, patient was accepted back home if patient will follow rules of not drinking, not smoking, and allowing his parent to distribute medications to him, patient agree with that plan. Over the course of this hospitalization pt was attending groups, pt also had medication management, had therapeutic milieu. Overall pt improved significantly, pt's affect became brighter, pt was less depressed, has realistic future oriented plans, pt appears to be less psychotic, pt has chronic schizophrenia, chronic delusions, overall was socially appropriate, no behavioral issues, pts insight improved as well and soon pt deemed to be ready for discharge. At the time of the discharge pt denied been depressed, denied thoughts of harming self or others, denied psychotic symptoms, and pt does not appeared to be psychotic, denied been anxious, pt is not in imminent danger to self or others, pt will be accepted back home, will f/u by PACT team, information about follow up appointment, time and address provided to the pt, it is patient responsibility to follow up with outpatient clinic, PMD as well as specialists (see note for more detailed information). In case pt will need to obtain results of studies pending at discharge pt was provided with contact information of Psychiatric Inpatient unit [phone] as well as Medical Record Department [phone]. Naltrexone treatment not indicated at this time, pt denied using any drugs Counseling about smoking and alcohol cessation provided smoking cessation treatment program information was provided by the pt was provided with prescriptions for all of medications (please see medication reconciliation form) Pt was educated about safety plan in case of worsening of symptoms or in case of suicidal or homicidal ideation call 911 or go to the nearest ER, also was educated to take meds as prescribed and stay away from drugs, pt verbalized u nderstanding. - Diagnosis (1) Schizoaffective disorder Current Visit: Yes Status: Chronic Priority: High - Final Diagnosis (DSM 5) Condition upon Discharge: IMPROVED Disposition: HOME/ ROUTINE Follow-up Treatment Plan: At the time of the discharge pt denied been depressed, denied thoughts of murrell rming self or others, denied psychotic symptoms, and pt does not appeared to be psychotic, denied been anxious, pt is not in imminent danger to self or others, pt will be accepted back home, will f/u by PACT team, information about follow up appointment, time and address provided to the pt, it is patient responsibility to follow up with outpatient clinic, PMD as well as specialists (see note for more detailed information). In case pt will need to obtain results of studies pending at discharge pt was provided with contact information of Psychiatric Inpatient unit [phone] as well as Medical Record Department [phone]. Naltrexone treatment not indicated at this time, pt denied using any drugs Counseling about smoking and alcohol cessation provided smoking cessation treatment program information was provided by the pt was provided with prescriptions for all of medications (please see medication reconciliation form) Pt was educated about safety plan in case of worsening of symptoms or in case of suicidal or homicidal ideation call 911 or go to the nearest ER, also was e ducated to take meds as prescribed and stay away from drugs, pt verbalized understanding. Prescriptions/Medication Reconciliation: Benztropine [Cogentin] 1 mg PO AMHS #30 tab Divalproex [Depakote DR(*BID*)] 1,000 mg PO HS #30 tcp Ergocalciferol [Drisdol 50,000 Intl Units Cap] 1 cap PO Q7D #2 cap Nicotine 21 mg/24 hr [Nicoderm Cq] 1 patch TD DAILY #14 patch Paliperidone [Invega] 12 mg PO HS #30 ter Pantoprazole [Protonix EC Tab] 40 mg PO 0600 #7 ect traZODone [Desyrel] 200 mg PO HS #30 tab - Smoking Cessation Smoking Cessation Medication prescribed: Yes - Antipsychotic Medications Pt discharged on 2 or more routine antipsychotic medications: No
== END 2018-09-11 17:25 | disposition home or self-care (01) | DRG 885 ==
LOC: ED 02:44 → ERH 12:55 → PSYC 13:20
PROVIDERS: ADMIT Psychiatry & Neurology Psychiatry; ATTEND Psychiatry & Neurology Psychiatry
DX: F25.0 Schizoaffective disorder, bipolar type (principal); E78.5 Hyperlipidemia, unspecified; F17.200 Nicotine dependence, unspecified, uncomplicated; R56.9 Unspecified convulsions; Z53.20 Procedure and treatment not carried out because of patient's decision for unspecified reasons; Z91.14 Patient's other noncompliance with medication regimen; Z91.19 Patient's noncompliance with other medical treatment and regimen

== ENCOUNTER 2019-02-04 23:06 | Emergency (ER) | payer OTHER ==
[2019-02-04 23:18] VITALS: BMI 23.6
--- NOTE | 2019-02-05 00:23 | ED PDOC ---
Arrival/HPI - General Chief Complaint: Psychiatric Evaluation Time Seen by Provider: 02/04/19 23:11 Historian: Patient - History of Present Illness Narrative History of Present Illness (Text): 02/05/19 00:17 28 year old male, whose past medical history includes schizoaffective disorder, bipolar disorder with psychosis, hyperlipidemia, substance abuse, anxiety, and depression, who presents to the ED brought in under police custody for bizarre behavior. On arrival, patient appears delusional and reports has having visual/auditory hallucinations. Patient states he has been seeing shapes and hearing voices. Patient denies any suicidal/homicidal ideation, fever, chills, chest pain, shortness of breath, nausea, vomiting, diarrhea, urinary symptoms, back pain, neck pain, headache, dizziness, or any other complaints. Time/Duration: Other (tonight) Symptom Onset: Gradual Symptom Course: Unchanged Activities at Onset: Light Context: Home Past Medical History - Provider Review Nursing Documentation Reviewed: Yes - Infectious Disease Hx of Infectious Diseases: None - Tetanus Immunization Tetanus Immunization: Unknown - Past Medical History Past Medical History: No Previous - Cardiac Hx Cardiac Disorders: No - Pulmonary Hx Respiratory Disorders: No - Neurological Hx Neurological Disorder: Yes Hx Seizures: Yes - HEENT Hx HEENT Disorder: No - Renal Hx Renal Disorder: No - Endocrine/Metabolic Hx Endocrine Disorders: No - Hematological/Oncological Hx Blood Disorders: No - Integumentary Hx Dermatological Disorder: No - Musculoskeletal/Rheumatological Hx Musculoskeletal Disorders: No - Gastrointestinal Hx Gastrointestinal Disorders: No - Genitourinary/Gynecological Hx Genitourinary Disorders: No - Psychiatric Hx Psychophysiologic Disorder: Yes Hx Anxiety: Yes Hx Schizophrenia: Yes Hx Substance Use: Yes - Past Surgical History Past Surgical History: No Previous - Surgical History Other/Comment: nose - Anesthesia Hx Anesthesia: Yes Hx Anesthesia Reactions: No - Suicidal Assessment Feels Threatened In Home Enviroment: No Family/Social History - Physician Review Nursing Documentation Reviewed: Yes Family/Social History: Unknown Family HX Smoking Status: Heavy Smoker > 10 Cigarettes Daily Hx Alcohol Use: No Hx Substance Use: Yes Hx Substance Use Treatment: No Allergies/Home Meds Allergies/Adverse Reactions: Allergies No Known Allergies Allergy (Verified 09/02/18 18:35) Review of Systems - Physician Review All systems were reviewed & negative as marked: Yes - Review of Systems Constitutional: Normal. absent: Fevers Eyes: Normal ENT: Normal Respiratory: Normal. absent: SOB, Cough Cardiovascular: Normal. absent: Chest Pain Gastrointestinal: Normal. absent: Abdominal Pain, Diarrhea, Nausea, Vomiting Genitourinary Male: Normal. absent: Dysuria, Frequency, Hematuria, Urinary Output Changes Musculoskeletal: Normal. absent: Back Pain, Neck Pain Skin: Normal. absent: Rash Neurological: Normal. absent: Headache, Dizziness Endocrine: Normal Hemo/Lymphatic: Normal Psychiatric: Other (+hallucinations) Physical Exam - Physical Exam Physical Exam Limitations: Altered Mental Status (Hallucinations, Delusions) Vital Signs Reviewed: Yes Vital Signs Temp Pulse Resp BP Pulse Ox 02/04/19 23:45 97.8 F 73 18 120/78 100 Temperature: Afebrile Blood Pressure: Normal Pulse: Regular Respiratory Rate: Normal Appearance: Positive for: Well-Appearing, Non-Toxic, Comfortable Pain Distress: None Mental Status: Positive for: Alert and Oriented X 3 - Systems Exam Head: Present: Atraumatic, Normocephalic Pupils: Present: PERRL Extroacular Muscles: Present: EOMI Conjunctiva: Present: Normal Mouth: Present: Moist Mucous Membranes Neck: Present: Normal Range of Motion Respiratory/Chest: Present: Clear to Auscultation, Good Air Exchange. No: Respiratory Distress, Accessory Muscle Use Cardiovascular: Present: Regular Rate and Rhythm, Normal S1, S2. No: Murmurs Abdomen: No: Tenderness, Distention, Peritoneal Signs Back: Present: Normal Inspection Upper Extremity: Present: Normal Inspection. No: Cyanosis, Edema Lower Extremity: Present: Normal Inspection. No: Edema Neurological: Present: GCS=15, CN II-XII Intact, Speech Normal Skin: Present: Warm, Dry, Normal Color. No: Rashes Psychiatric: Present: Alert, Oriented x 3, Delusional Medical Decision Making ED Course and Treatment: 02/05/19 00:26 Impression: 28 year old male who presents to the ED for bizarre behavior. Plan: -- EKG -- Labs, alcohol level -- Chest X-Ray -- Urinalysis, urine drug screen -- Reassess and disposition Progress Notes: Reviewed EKG, NSR at [address]-segment elevations or depressions, no T-wave inversions, normal intervals. Chest X-ray reviewed, shows no acute processes. Pt medically cleared for PES evaluation. 02/05/19 02:35 Pt seen and evaluated by PES screener Orville, who discussed case with psychiatrist special technical operations officer. Pt to be screened by [facility] PES. 02/05/19 06:02 Pt seen and evaluated by [facility] PES screener, pt accepted for involuntary admission however no beds currently available. Awaiting bed placement. 02/05/19 07:[address] Galvan, pending [facility] bed availability. - Lab Interpretations I have reviewed the lab results: Yes - RAD Interpretation Radiology Orders: 02/04/19 23:49 CHEST PORTABLE [RAD] Stat Product Marketing Intern: ED Physician - EKG Interpretation Interpreted by ED Physician: Yes Type: 12 lead EKG - Scribe Statement The provider has reviewed the documentation as recorded by the Eugenieibиван Mayorga training with Irena William. All medical record entries made by the Eugenieibe were at my direction and personally dictated by me. I have reviewed the chart and agree that the record accurately reflects my personal performance of the history, physical exam, medical decision making, and the department course for this patient. I have also personally directed, reviewed, and agree with the discharge instructions and disposition. Disposition/Present on Arrival - Present on Arrival Any Indicators Present on Arrival: No History of DVT/PE: No History of Uncontrolled Diabetes: No Urinary Catheter: No History of Decub. Ulcer: No History Surgical Site Infection Following: None - Disposition Have Diagnosis and Disposition been Completed?: Yes Diagnosis: Schizophrenia Disposition: Transfer [facility] Disposition Time: 07:00 Condition: GOOD Forms: [employer] (Armenian)
[2019-02-05 00:24] LABS: BASO # 0.03 K/mm3 (0.0-2.0); BASO % 0.5 % (0.0-3.0); EOS # 0.2 (0.0-0.7); EOS % 4.3 % (1.5-5.0); HEMOGLOBIN 14.3 g/dL (14.0-18.0); LYMPH # 2.8 (1.2-3.4); LYMPH % 49.9 % (22.0-35.0); MEAN CORPUSCULAR HEMOGLOBIN 27.1 pg (25.0-35.0); MEAN PLATELET VOLUME 10.4 fl (7.0-11.0); MONO # 0.4 (0.1-0.6); MONO % 6.7 % (1.0-6.0); RBC 5.27 10^6/uL (3.5-6.1); RED CELL DISTRIBUTION WIDTH 13.6 % (11.5-14.5); WHITE BLOOD COUNT 5.5 10^3/uL (4.5-11.0)
[2019-02-05 00:25] LABS: PH,URINE 6.5 (4.7-8.0); URINE BILIRUBIN NEGATIVE (NEGATIVE); URINE BLOOD NEGATIVE (NEGATIVE); URINE GLUCOSE (UA) NEGATIVE (NEGATIVE); URINE LEUKOCYTE ESTERASE NEGATIVE Leu/uL (NEGATIVE); URINE PROTEIN NEGATIVE mg/dL (<30 mg/dL); URINE UROBILINOGEN 0.2 E.U./dL (<1 E.U./dL)
[2019-02-05 00:26] LABS: ACETAMINOPHEN < 10.0 ug/ml (10.0-20.0); ALB/GLOB RATIO 1.2 (1.1-1.8); ALBUMIN 4.1 g/dL (3.0-4.8); AST/SGOT 23 U/L (17-59); BLOOD UREA NITROGEN 15 mg/dL (7-21); CALCIUM 9.2 mg/dL (8.4-10.5); GFR NON-AFRICAN AMERICAN > 60; SALICYLATE < 1 mg/dL (2.0-20.0)
[2019-02-05 00:33] LABS: ALT/SGPT < 6 U/L (7-56)
[2019-02-05 00:34] LABS: URINE APPEARANCE CLEAR (CLEAR); URINE COLOR YELLOW (YELLOW)
[2019-02-05 00:36] LABS: MEAN CELL VOLUME 84.8 fl (80.0-105.0)
[2019-02-05 00:44] LABS: BARBITURATES, UR NEGATIVE (NEGATIVE); BENZODIAZEPINES, UR NEGATIVE (NEGATIVE); OPIATES, UR NEGATIVE (NEGATIVE); PHENCYCLIDINE, UR NEGATIVE (NEGATIVE)
--- NOTE | 2019-02-05 08:11 | ED PDOC ---
Physical Exam Vital Signs Temp Pulse Resp BP Pulse Ox 02/05/19 06:11 97.9 F 68 18 106/78 98 02/05/19 04:23 98.2 F 84 16 108/75 100 02/05/19 01:36 98 F 64 18 112/76 98 02/04/19 23:45 97.8 F 73 18 120/78 100 Medical Decision Making ED Course and Treatment: 02/05/19 06:58 Dr. Lemus has signed out to me, Dr. Galvan, to follow up to [facility] for Psychiatric Screening. 02/05/19 18:10 Patient accepted and has a bed at [facility]. Dr. Hartley is the accepting physician. We will transfer to [facility]. - Lab Interpretations Lab Results: Total Bilirubin 0.3 mg/dL (0.2-1.3) 02/04/19 23:49 AST 23 U/L (17-59) 02/04/19 23:49 ALT < 6 U/L (7-56) L 02/04/19 23:49 Alkaline Phosphatase 49 U/L (38-126) 02/04/19 23:49 Total Protein 7.4 g/dL (5.8-8.3) 02/04/19 23:49 Albumin 4.1 g/dL (3.0-4.8) 02/04/19 23:49 Globulin 3.3 gm/dL 02/04/19 23:49 Albumin/Globulin Ratio 1.2 (1.1-1.8) 02/04/19 23:49 Urine Color Yellow (YELLOW) 02/04/19 23:49 Urine Appearance Clear (CLEAR) 02/04/19 23:49 Urine pH 6.5 (4.7-8.0) 02/04/19 23:49 Ur Specific [place] 1.020 (1.005-1.035) 02/04/19 23:49 Urine Protein Negative mg/dL (<30 mg/dL) 02/04/19 23:49 Urine Glucose (UA) Negative mg/dL (NEGATIVE) 02/04/19 23:49 Urine Ketones Negative mg/dL (NEGATIVE) 02/04/19 23:49 Urine Blood Negative (NEGATIVE) 02/04/19 23:49 Urine Nitrate Negative (NEGATIVE) 02/04/19 23:49 Urine Bilirubin Negative (NEGATIVE) 02/04/19 23:49 Urine Urobilinogen 0.2 E.U./dL (<1 E.U./dL) 02/04/19 23:49 Ur Leukocyte Esterase Negative Lilo/uL (NEGATIVE) 02/04/19 23:49 - RAD Interpretation Radiology Orders: 02/04/19 23:49 CHEST PORTABLE [RAD] Stat - Scribe Statement The provider has reviewed the documentation as recorded by the Jose F Koroma All medical record entries made by the Eugenieibиван were at my direction and personally dictated by me. I have reviewed the chart and agree that the record accurately reflects my personal performance of the history, physical exam, medical decision making, and the department course for this patient. I have also personally directed, reviewed, and agree with the discharge instructions and disposition. Disposition/Present on Arrival - Present on Arrival Any Indicators Present on Arrival: No History of DVT/PE: No History of Uncontrolled Diabetes: No Urinary Catheter: No History of Decub. Ulcer: No History Surgical Site Infection Following: None - Disposition Have Diagnosis and Disposition been Completed?: Yes Diagnosis: Schizophrenia Disposition: Transfer [facility] Disposition Time: 18:12 Patient Plan: Transfer To Patient Problems: Current Active Problems Problem Status Onset Schizophrenia Acute Condition: GOOD Forms: [employer] (Korean)
--- NOTE | 2019-02-05 09:33 | RAD ---
Date of service: 02/05/2019 HISTORY: pes COMPARISON: 09/02/2018 TECHNIQUE: 1 view obtained. FINDINGS: LUNGS: No active pulmonary disease. PLEURA: No significant pleural effusion identified, no pneumothorax apparent. CARDIOVASCULAR: No aortic atherosclerotic calcification present. Normal cardiac size. No pulmonary vascular congestion. OSSEOUS STRUCTURES: No significant abnormalities. VISUALIZED UPPER ABDOMEN: Normal. OTHER FINDINGS: None. IMPRESSION: No active disease.
--- NOTE | 2019-02-05 10:06 | CARD ---
APPROVED REPORT Date of service: 02/04/2019 EKG Measurement Heart [id number] <Conclusion> Sinus Arrythmia Normal ECG
[2019-02-05 19:05] VITALS: PULSE 60; TEMP 97.5
--- NOTE | 2019-02-05 19:46 | CON ---
DATE OF CONSULTATION: 02/05/2019 HISTORY OF PRESENT ILLNESS: In short, the patient is a 28-year-old male with a reported history of schizophrenia. The patient has chronic noncompliance with the medications. The patient is currently under [facility] supervision. The patient lives with his parents here in [place]. The patient was brought in by police for bizarre and disorganized behavior. The patient presented to be delusional, reported to have hallucinations, visual and auditory. The patient was offered admission to the psychiatric inpatient unit, but the patient declined that offer. This senior copywriter initiated [facility] screening for involuntary commitment. The patient was accepted for involuntary screening. This senior copywriter is seeing the patient at the morning time in the emergency room as a mortgage consultant. The patient presented to be disorganized, flight of ideas. The patient was unsatisfied and angry, wants to sign himself into the psychiatric inpatient unit in order to have easy way out and submit 48 hours notice later on. The patient reported that he was compliant with the medications, recent Invega Sustenna injection was on 01/29/2019. The patient reported feeling shaky and complained of muscle stiffness. This senior copywriter offered Cogentin. At present moment, the patient is waiting for bed to be available at [facility]. PHYSICAL EXAMINATION: VITAL SIGNS: Reviewed. MEDICATIONS: Reviewed. LABORATORY DATA: Labs reviewed. Chemistry reviewed. Urinalysis reviewed. Toxicology is negative for any substances. Depakote was 67. Most likely, the patient was compliant with the medication. Microbiology reviewed. Reports reviewed. This senior copywriter contacted [facility]. The patient gave permission to do so. As per nurse Jodi, the patient was not doing well, recently suggested screening and possible state hospitalization afterwards. Medications were confirmed with the patient's pharmacy, [facility]. Depakote was resumed. Risperdal was resumed. Benztropine 0.5 mg twice a day, trazodone 50 mg at the nighttime, Invega Sustenna 150 mg IM, most recent was given on 01/29/2019. MENTAL STATUS EXAMINATION: The patient presented to be sleepy, easily arousable, disorganized flight of ideas. Mood described as okay. Affect was flat. Thought process was circumstantial and tangential. Thought content, the patient complained of some visual hallucinations and auditory hallucinations, guarded and paranoid, but the patient denied any psychotic symptoms. Insight and judgment seemed to be very limited. Impulses are unpredictable. IMPRESSION: As per history, the patient has treatment resistant schizophrenia. PLAN: The patient was accepted for involuntary commitment screening by [facility]. At present moment, the patient is waiting for bed to be available. This senior copywriter resumed medications. We will follow up and advise accordingly. Collaterals were obtained from [facility] Team. Should you have any questions give me a call back. Care for this patient took more than 45 minutes of this senior copywriter's time. Charissa Aggarwal MD
[2019-02-05] MEDS ORDERED: Divalproex 500 mg DR(BID formulation) PO SCH (22:00)
[2019-02-05 22:36] VITALS: BP 115/77; RESP 18; O2SAT 97
== END 2019-02-05 22:20 | disposition short-term general hospital (02) ==
LOC: ED 23:06
DX: F20.9 Schizophrenia, unspecified (principal); E78.5 Hyperlipidemia, unspecified; F17.210 Nicotine dependence, cigarettes, uncomplicated; F31.9 Bipolar disorder, unspecified

== ENCOUNTER 2019-02-27 12:22 | Emergency (ER) | payer BC, OTHER ==
[2019-02-27 12:22] VITALS: BMI 23.6
[2019-02-27 13:11] VITALS: RESP 18; TEMP 98
[2019-02-27 13:40] LABS: BASO # 0.03 K/mm3 (0.0-2.0); BASO % 0.5 % (0.0-3.0); EOS # 0.3 (0.0-0.7); HEMOGLOBIN 14.5 g/dL (14.0-18.0); LYMPH # 1.9 (1.2-3.4); MEAN CELL VOLUME 84.6 fl (80.0-105.0); MEAN CORPUSCULAR HEMOGLOBIN 27.5 pg (25.0-35.0); MEAN CORPUSCULAR HGB CONC 32.5 g/dl (31.0-37.0); MEAN PLATELET VOLUME 9.7 fl (7.0-11.0); MONO # 0.6 (0.1-0.6); MONO % 9.3 % (1.0-6.0); RBC 5.27 10^6/uL (3.5-6.1); RED CELL DISTRIBUTION WIDTH 13.9 % (11.5-14.5); WHITE BLOOD COUNT 6.6 10^3/uL (4.5-11.0)
[2019-02-27 13:45] LABS: ACETAMINOPHEN < 10.0 ug/ml (10.0-20.0); SALICYLATE < 1 mg/dL (2.0-20.0)
[2019-02-27 13:50] LABS: ALB/GLOB RATIO 1.4 (1.1-1.8); ALBUMIN 4.3 g/dL (3.0-4.8); ALT/SGPT < 6 U/L (7-56); AST/SGOT 28 U/L (17-59); BLOOD UREA NITROGEN 19 mg/dL (7-21); CALCIUM 9.4 mg/dL (8.4-10.5); GFR NON-AFRICAN AMERICAN > 60
[2019-02-27 14:07] LABS: CK-MB 1.9 ng/mL (0.0-3.6)
--- NOTE | 2019-02-27 14:18 | RAD ---
Date of service: 02/27/2019 HISTORY: pes eval COMPARISON: 02/05/2019 TECHNIQUE: 1 view obtained. FINDINGS: LUNGS: No active pulmonary disease. PLEURA: No significant pleural effusion identified, no pneumothorax apparent. CARDIOVASCULAR: No aortic atherosclerotic calcification present. Normal cardiac size. No pulmonary vascular congestion. OSSEOUS STRUCTURES: No significant abnormalities. VISUALIZED UPPER ABDOMEN: Normal. OTHER FINDINGS: None. IMPRESSION: No active disease.
[2019-02-27 15:09] LABS: URINE BILIRUBIN NEGATIVE (NEGATIVE); URINE BLOOD NEGATIVE (NEGATIVE); URINE GLUCOSE (UA) NEGATIVE (NEGATIVE); URINE LEUKOCYTE ESTERASE NEGATIVE Leu/uL (NEGATIVE); URINE PROTEIN NEGATIVE mg/dL (<30 mg/dL); URINE UROBILINOGEN 0.2 E.U./dL (<1 E.U./dL)
[2019-02-27 15:12] LABS: URINE APPEARANCE CLEAR (CLEAR); URINE COLOR LIGHT YELLOW (YELLOW)
[2019-02-27 16:11] LABS: BARBITURATES, UR NEGATIVE (NEGATIVE); BENZODIAZEPINES, UR NEGATIVE (NEGATIVE); OPIATES, UR NEGATIVE (NEGATIVE); PHENCYCLIDINE, UR NEGATIVE (NEGATIVE)
--- NOTE | 2019-02-27 16:21 | ED PDOC ---
Arrival/HPI - General Chief Complaint: Psychiatric Evaluation Time Seen by Provider: 02/27/19 12:23 Historian: Patient, EMS - History of Present Illness Narrative History of Present Illness (Text): 02/27/19 16:20 28yr old male with history of schizophrenia presents today brought in by ambulance for psychiatric evaluation. Per EMS the patient brought home a homeless person and he claimed that it was his roommate. Patient denies any complaints. He states he is taking a workout supplement. Patient states he decided to stop taking his in [place]. And states that he has changed the dosage of his Depakote on his own. Past Medical History - Provider Review Nursing Documentation Reviewed: Yes - Travel History Have you recently traveled outside [place] w/in the past 3 mons?: No - Infectious Disease Hx of Infectious Diseases: None - Tetanus Immunization Tetanus Immunization: Unknown - Past Medical History Past Medical History: No Previous - Cardiac Hx Cardiac Disorders: No Hx Hypertension: No - Pulmonary Hx Tuberculosis: No - Neurological HX Cerebrovascular Accident: No Hx Seizures: No - HEENT Hx HEENT Disorder: No - Renal Hx Renal Disorder: No - Endocrine/Metabolic Hx Endocrine Disorders: No - Hematological/Oncological Hx Cancer: No - Integumentary Hx Dermatological Disorder: No - Musculoskeletal/Rheumatological Hx Musculoskeletal Disorders: No - Gastrointestinal Hx Gastrointestinal Disorders: No - Genitourinary/Gynecological Hx Sexually Transmitted Diseases: No - Psychiatric Hx Psychophysiologic Disorder: Yes Hx Anxiety: Yes Hx Schizophrenia: Yes Hx Substance Use: Yes (pt used last year) - Past Surgical History Past Surgical History: No Previous - Surgical History Other/Comment: nose - Anesthesia Hx Anesthesia: Yes Hx Anesthesia Reactions: No - Suicidal Assessment Feels Threatened In Home Enviroment: No Family/Social History - Physician Review Nursing Documentation Reviewed: Yes Family/Social History: Unknown Family HX Smoking Status: Heavy Smoker > 10 Cigarettes Daily Hx Alcohol Use: No Hx Substance Use: Yes (pt used last year) Substance used: Marijuna Hx Substance Use Treatment: No Allergies/Home Meds Allergies/Adverse Reactions: Allergies No Known Allergies Allergy (Verified 09/02/18 18:35) Home Medications: Home Meds Medication Instructions Recorded Confirmed Divalproex [Depakote DR(*BID*)] 500 mg PO HS 02/05/19 02/05/19 Paliperidone [Invega] 156 mg IM 02/05/19 Risperidone [Risperdal] 2 mg PO BID 02/05/19 02/05/19 Review of Systems - Review of Systems Constitutional: absent: Fatigue, Fevers Respiratory: absent: SOB, Cough Cardiovascular: absent: Chest Pain, Palpitations Gastrointestinal: absent: Abdominal Pain, Nausea, Vomiting Genitourinary Male: absent: Dysuria Musculoskeletal: absent: Arthralgias Skin: absent: Rash, Pruritis Psychiatric: absent: Anxiety, Depression, Suicidal Ideation Physical Exam Vital Signs Reviewed: Yes Vital Signs Temp Pulse Resp BP Pulse Ox 02/27/19 14:51 86 18 126/78 97 02/27/19 12:30 98 F 78 18 127/78 99 Temperature: Afebrile Blood Pressure: Normal Pulse: Regular Respiratory Rate: Normal Appearance: Positive for: Well-Appearing, Non-Toxic, Comfortable Pain Distress: None Mental Status: Positive for: Alert and Oriented X 3 - Systems Exam Head: Present: Atraumatic Mouth: Present: Moist Mucous Membranes Neck: Present: Normal Range of Motion Respiratory/Chest: Present: Clear to Auscultation Cardiovascular: Present: Regular Rate and Rhythm Abdomen: No: Tenderness Upper Extremity: Present: Normal Inspection, Normal ROM Lower Extremity: Present: Normal ROM Neurological: Present: GCS=15, Speech Normal Skin: Present: Warm, Dry, Normal Color Psychiatric: Present: Alert, Oriented x 3. No: Suicidal Ideation, Homicidal Ideation Medical Decision Making ED Course and Treatment: 02/27/19 16:21 Patient is nontoxic well-appearing in no distress vital signs are stable. CBC WNL CMP WNL Tylenol WNL Salicylate WNL Alcohol level WNL depakote; 71 Urine drug screen wnl UA; wnl cxr: wnl ekg normal sinus rhythm at 75 bpm normal axis no ST elevations QTC 415 pt is medically cleared for PES evaluation/ psych transfer/ admission Patient was seen and evaluated by PES screener: tashia Patient does not want to sign into the hospital voluntarily. Will get a [facility] screening 02/27/19 19:48 Case signed out to Dr. Leyva pending [facility] screening - Lab Interpretations Lab Results: Total Bilirubin 0.4 mg/dL (0.2-1.3) 02/27/19 13:22 AST 28 U/L (17-59) 02/27/19 13:22 ALT < 6 U/L (7-56) L 02/27/19 13:22 Alkaline Phosphatase 41 U/L (38-126) 02/27/19 13:22 Total Protein 7.3 g/dL (5.8-8.3) 02/27/19 13:22 Albumin 4.3 g/dL (3.0-4.8) 02/27/19 13:22 Globulin 3.0 gm/dL 02/27/19 13:22 Albumin/Globulin Ratio 1.4 (1.1-1.8) 02/27/19 13:22 Urine Color Light yellow (YELLOW) 02/27/19 14:50 Urine Appearance Clear (CLEAR) 02/27/19 14:50 Urine pH 6.0 (4.7-8.0) 02/27/19 14:50 Ur Specific [place] <= 1.005 (1.005-1.035) 02/27/19 14:50 Urine Protein Negative mg/dL (<30 mg/dL) 02/27/19 14:50 Urine Glucose (UA) Negative mg/dL (NEGATIVE) 02/27/19 14:50 Urine Ketones Negative mg/dL (NEGATIVE) 02/27/19 14:50 Urine Blood Negative (NEGATIVE) 02/27/19 14:50 Urine Nitrate Negative (NEGATIVE) 02/27/19 14:50 Urine Bilirubin Negative (NEGATIVE) 02/27/19 14:50 Urine Urobilinogen 0.2 E.U./dL (<1 E.U./dL) 02/27/19 14:50 Ur Leukocyte Esterase Negative Lilo/uL (NEGATIVE) 02/27/19 14:50 - RAD Interpretation Radiology Orders: 02/27/19 13:37 CHEST PORTABLE [RAD] Stat Disposition/Present on Arrival - Present on Arrival Any Indicators Present on Arrival: No History of DVT/PE: No History of Uncontrolled Diabetes: No Urinary Catheter: No History of Decub. Ulcer: No History Surgical Site Infection Following: None - Disposition Have Diagnosis and Disposition been Completed?: Yes Diagnosis: Schizophrenia Disposition Time: 16:24 Forms: [employer] (Cameroonian)
--- NOTE | 2019-02-27 19:04 | CARD ---
APPROVED REPORT Date of service: 02/27/2019 EKG Measurement Heart [id number] <Conclusion> Normal sinus rhythm Baseline artifact Nonspecific ST abnormality Abnormal ECG
--- NOTE | 2019-02-27 21:00 | CON ---
DATE OF CONSULTATION: 02/27/2019 HISTORY OF PRESENT ILLNESS: In short, the patient is a 28-year-old male with reported history of schizophrenia, chronic noncompliance with the medications and follow-up appointments. The patient is currently under the care of PACT team. The patient was recently discharged from [facility] Involuntary Unit. The patient was brought in for evaluation of bizarre and disorganized behavior. The patient also was noncompliant with the medication, acting strangely as per family, the patient allows homeless person to live with him. This greeting card writer evaluated the patient in the emergency room. The patient presented to be bizarre and disorganized, very hard to interview. On the question what brought the patient to the hospital, the patient said that he was trying to play "with Pat." When this greeting card writer asked who Pat is, the patient replied [place], on the question who [place] is, the patient replied [employer] [place]. When this greeting card writer asked who is [employer] [place], the patient replied [employer] [place] day. No option to have meaningful conversation at all. PHYSICAL EXAMINATION: VITAL SIGNS: Reviewed. Temperature 98, pulse is 86, blood pressure 126/78, respirations 18, oxygen saturation is 97. MEDICATIONS: Medications will be requested from the patient's PACT team. This greeting card writer will start as needed medication for anxiety, for agitation, and for psychosis, and [facility] screening process will be initiated. MENTAL STATUS EXAMINATION: As this greeting card writer described above, the patient is disorganized and psychotic. No meaningful conversation possible. Insight and judgment seemed to be very limited and impaired. Impulses are unpredictable. IMPRESSION: Most likely, the patient was noncompliant with the medications. The patient has long history of schizophrenia versus schizoaffective disorder. PLAN: [facility] screening process will be initiated. The patient will be continued on medication, as needed medications started. Should you have any questions give me a call back. Charissa Aggarwal MD
[2019-02-27 21:53] VITALS: BP 112/76; PULSE 82; O2SAT 99
== END 2019-02-27 23:00 | disposition short-term general hospital (02) ==
LOC: ED 12:22
DX: F20.9 Schizophrenia, unspecified (principal); F17.210 Nicotine dependence, cigarettes, uncomplicated; Z59.0 Homelessness
CPT/HCPCS: 71045; 80053; 80164; 81003; 82550; 82553; 85025; 90791; 93005; 99285; G0480